=== PATIENT | male | born 1960 | race Caucasian/White ===

== ENCOUNTER 2016-05-14 18:04 | Emergency (ER) | payer OTHER ==
[~2016-05-14] VITALS: Ht 177.8 cm; Wt 120.0 kg
[~2016-05-14 18:04] MED LIST: GABA800T PO
[2016-05-14 18:05] VITALS: BP 198/126; PULSE 100; RESP 14; TEMP 98; O2SAT 98
[2016-05-15] MEDS ORDERED: BACT800T5 PO (02:25)
[2016-05-15] MEDS ORDERED: HYDR-3533 PO (02:25)
[2016-05-15] MEDS ORDERED: CEPH-460 PO (02:25)
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
[2016-05-15] MEDS ORDERED: ACETAMINOPHEN/HYDROcodone 325 MG/10 MG TAB PO ONE (02:30)
[2016-05-15 02:43] VITALS: BP 190/115; PULSE 88; RESP 14; O2SAT 99
[2016-05-15] MEDS ORDERED: LISI10TA3 PO (02:47)
[2016-05-15] MEDS ORDERED: GABA800T PO (02:51)
== END 2016-05-15 04:52 | disposition home or self-care (01) ==
LOC: NEPC 18:04
DX: S81.802A Unspecified open wound, left lower leg, initial encounter (principal); G54.6 Phantom limb syndrome with pain; I10 Essential (primary) hypertension; E78.00 Pure hypercholesterolemia, unspecified; Z72.0 Tobacco use; X58.XXXA Exposure to other specified factors, initial encounter
CPT/HCPCS: 99283

== ENCOUNTER 2016-07-08 21:21 | Emergency (ER) | payer OTHER ==
[~2016-07-08] VITALS: Ht 177.8 cm; Wt 113.5 kg
[~2016-07-08 21:21] MED LIST changes: +BACT800T5 PO; +CEPH-460 PO; +HYDR-3533 PO; +LISI10TA3 PO
[2016-07-08 21:23] VITALS: BP 190/115; PULSE 76; RESP 16; TEMP 97.8; O2SAT 97
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
== END 2016-07-08 22:27 | disposition left against medical advice (07) ==
LOC: NED 21:21
DX: M79.604 Pain in right leg (principal)
CPT/HCPCS: 99282

== ENCOUNTER 2016-08-07 21:53 | Emergency (ER) | payer OTHER ==
[~2016-08-07] VITALS: Ht 180.3 cm; Wt 88.0 kg
[2016-08-07 22:03] VITALS: BP 166/108; PULSE 88; RESP 16; TEMP 97.7; O2SAT 98
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
[2016-08-07] MEDS ORDERED: SODIUM CHLOR 0.9% 1000 ML INJ 1,000 ML IV ONE (23:30)
[2016-08-07] MEDS ORDERED: KETOROLAC TROMETHAMINE 30 MG/ML (IVP) VIAL IV PUSH ONE (23:30)
--- NOTE | 2016-08-08 00:01 | RADRPT ---
EXAM DATE/TIME: 08/07/2016 23:34 [facility] COMPARISON: No previous studies available for comparison. INDICATIONS : Left leg pain. MEDICAL HISTORY : Hypercholesterolemia. Hypertension. Arthritis. Diverticulitis. Bipolar disorder. PTSD. Measles. Ce llulitis. MRSA. Blood transfusion. SURGICAL HISTORY : Right below the knee amputation. Ulcer repair. Left leg surgery. ENCOUNTER: Subsequent ACUITY: >1 year PAIN SCORE: 5/10 LOCATION: Left leg. TECHNIQUE: Venous ultrasound of the leg was performed from the inguinal ligament to the proximal calf. Real-cesilia e, color Doppler and spectral tracing, compression and augmentation techniques were used. FINDINGS: There is normal compressibility of the deep venous system from the inguinal region to the proximal ca lf. No echogenic clot is seen in the lumen of the common femoral, femoral, popliteal, and posterior tibial veins. There is a normal response of the venous system to proximal and distal augmentation an d respiration. Edema in the soft tissues. Prominent lymph node measures 3.6 x 2.0 x 1.2 cm. CONCLUSION: 1. No deep venous thrombosis in left leg. 2. Soft tissue edema. 3. Prominent lymph node in left groin. Johnny Ni MD on August 07, 2016 at 23:58 Board Certified Radiologist. This report was verified electronically.
[2016-08-08 00:12] LABS: AUTOMATED NEUTROPHIL # 4.1 TH/MM3 (1.8-7.7); BASOPHIL % 0.6 % (0.0-2.0); EOSINOPHIL # 0.3 TH/MM3 (0-0.4); EOSINOPHIL % 3.4 % (0.0-4.0); HEMATOCRIT 42.7 % (39.0-51.0); HEMO FLAGS DIFF FINAL; LYMPH % 35.1 % (9.0-44.0); LYMPHOCYTE # 2.7 TH/MM3 (1.0-4.8); MEAN CELL VOLUME 90.9 FL (80.0-100.0); MEAN CORPUSCULAR HEMOGLOBIN 31.1 PG (27.0-34.0); MEAN CORPUSCULAR HGB CONC 34.2 % (32.0-36.0); MONO % 6.6 % (0.0-8.0); NEUT % 54.3 % (16.0-70.0); PLATELET COUNT 158 TH/MM3 (150-450); RED CELL DISTRIBUTION WIDTH 13.8 % (11.6-17.2); WHITE BLOOD COUNT 7.6 TH/MM3 (4.0-11.0)
[2016-08-08 00:13] LABS: BICARBONATE 27.3 MEQ/L (21.0-32.0); POTASSIUM 3.7 MEQ/L (3.5-5.1)
[2016-08-08 00:24] LABS: APTT (PATIENT) 27.7 SEC (24.3-30.1); INTERNATIONAL NORMALIZED RATIO 0.9 RATIO; PROTHROMBIN TIME - PATIENT 10.4 SEC (9.8-11.6)
[2016-08-08] MEDS ORDERED: BACT800T5 PO (00:26)
[2016-08-08] MEDS ORDERED: CEPH-460 PO (00:26)
[2016-08-08] MEDS ORDERED: SULFAMETHOXAZOLE-TRIMETHOPRIM DS 800-160 MG TAB PO ONE (00:30)
[2016-08-08] MEDS ORDERED: CEPHALEXIN MONOHYDRATE 500 MG CAP PO ONE (00:30)
[2016-08-08 00:46] VITALS: BP 155/94
== END 2016-08-08 00:56 | disposition home or self-care (01) ==
LOC: NEPE 21:53
DX: L03.116 Cellulitis of left lower limb (principal); I10 Essential (primary) hypertension; T14.8 Other injury of unspecified body region; X58.XXXA Exposure to other specified factors, initial encounter; Z72.0 Tobacco use; Z59.0 Homelessness
CPT/HCPCS: 80048; 85025; 85610; 85730; 93971; 96374; 99284; J1885; J7030

== ENCOUNTER 2016-08-18 23:41 | Emergency (ER) | payer OTHER ==
[2016-08-18 23:47] VITALS: BP_SYST 171; BP_SYST 177; BP_DIAS 106; BP_DIAS 114; PULSE 116; RESP 16; TEMP 98.4; O2SAT 96
[2016-08-19] MEDS ORDERED: CLINDAMYCIN INJ 600 MG in SODIUM CHLORIDE 0.9% INJ 100 ML IV ONE (03:45)
[2016-08-19 04:14] LABS: ALT (GPT) 55 U/L (12-78); ANION GAP 7 MEQ/L (5-15); AST (GOT) 43 U/L (15-37); BICARBONATE 26.3 MEQ/L (21.0-32.0); BLOOD UREA NITROGEN 12 MG/DL (7-18); CHLORIDE 106 MEQ/L (98-107); GLOMERULAR FILTRATION RATE 81 ML/MIN (>89); POTASSIUM 3.7 MEQ/L (3.5-5.1); SODIUM (NA) 139 MEQ/L (136-145)
[2016-08-19 04:15] LABS: AUTOMATED NEUTROPHIL # 7.9 TH/MM3 (1.8-7.7); BASOPHIL % 0.2 % (0.0-2.0); EOSINOPHIL # 0.1 TH/MM3 (0-0.4); EOSINOPHIL % 0.8 % (0.0-4.0); HEMATOCRIT 43.4 % (39.0-51.0); HEMO FLAGS DIFF FINAL; LYMPH % 23.4 % (9.0-44.0); LYMPHOCYTE # 2.8 TH/MM3 (1.0-4.8); MEAN CELL VOLUME 90.5 FL (80.0-100.0); MEAN CORPUSCULAR HEMOGLOBIN 30.8 PG (27.0-34.0); MEAN CORPUSCULAR HGB CONC 34.1 % (32.0-36.0); MONO % 8.5 % (0.0-8.0); NEUT % 67.1 % (16.0-70.0); PLATELET COUNT 221 TH/MM3 (150-450); RED BLOOD COUNT 4.79 MIL/MM3 (4.50-5.90); RED CELL DISTRIBUTION WIDTH 13.9 % (11.6-17.2); WHITE BLOOD COUNT 11.8 TH/MM3 (4.0-11.0)
[2016-08-19 04:17] LABS: ALKALINE PHOSPHATASE 84 U/L (45-117); TOTAL BILIRUBIN ADULT 0.9 MG/DL (0.2-1.0)
[2016-08-19 05:02] VITALS: BP 158/98; PULSE 90; RESP 18; O2SAT 94
[2016-08-19] MEDS ORDERED: CLIN1CAP5 PO (06:06)
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
== END 2016-08-19 06:23 | disposition home or self-care (01) ==
LOC: NEPC 23:41
DX: L03.116 Cellulitis of left lower limb (principal); I10 Essential (primary) hypertension; Z72.0 Tobacco use
CPT/HCPCS: 80053; 85025; 96365

== ENCOUNTER 2016-09-02 23:42 | Emergency (ER) | payer OTHER ==
[~2016-09-02 23:42] MED LIST changes: +CLIN1CAP5 PO
[2016-09-02 23:44] VITALS: BP 201/114; PULSE 94; RESP 16; TEMP 97.9; O2SAT 97
[2016-09-03] MEDS ORDERED: SULFAMETHOXAZOLE-TRIMETHOPRIM DS 800-160 MG TAB PO ONE (01:00)
[2016-09-03] MEDS ORDERED: ACETAMINOPHEN/HYDROcodone 325 MG/5 MG TAB PO ONE (01:00)
[2016-09-03] MEDS ORDERED: GABAPENTIN 400 MG CAP PO ONE (01:00)
[2016-09-03] MEDS ORDERED: GABA600T PO (01:10)
[2016-09-03] MEDS ORDERED: MUPI2%T TOPICAL (01:10)
[2016-09-03] MEDS ORDERED: HIBI4LIQ TOPICAL (01:10)
[2016-09-03] MEDS ORDERED: BACT800T5 PO (01:10)
--- NOTE | 2016-09-03 01:11 | PD ---
HPI Chief Complaint: Skin Problem Time Seen by Provider: 00:41 Travel History International Travel<30 days: No Contact w/Intl Traveler<30days: No Traveled to known affect area: No History of Present Illness HPI The patient is a 56-year-old male who presents emergency department for chronic nonhealing wounds to the hands bilateral, right forearm, and left lower extremity. The patient has a history of MRSA infection after he suffered sun poisoning. 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 The patient states he has circular lesions on the arms, hands, and left lower extremity with a small amount of crusting, no visible drainage, that are mildly irritating. The patient states he took clindamycin last week, however, the wounds did not resolve completely. He does complain of chronic left lower extremity edema, secondary to having his leg hanging over the wheelchair throughout the day. The patient states he is currently homeless, denies any history of HIV or diabetes. Symptoms are moderate and there are no alleviating factors. The patient does have a history of neuropathy for which she takes gabapentin 1200 mg 3 times a day, states his last dose was yesterday and is requesting a prescription. PFSH Past Medical History Hx Anticoagulant Therapy: No Arthritis: Yes Asthma: No Blood Disorders: No Bipolar Disorder: Yes Anxiety: Yes Depression: Yes Heart Rhythm Problems: No Cancer: No Cardiac Catheterization: No Cardiovascular Problems: Yes (HTN) High Cholesterol: Yes Chemotherapy: No Chest Pain: No Congestive Heart Failure: No COPD: No Cerebrovascular Accident: No Diabetes: No Diminished Hearing: No Diverticulitis: Yes Endocrine: No Gastrointestinal Disorders: Yes (DIVERTICULITIS ) Genitourinary: No Headaches: No Heparin Induced Thrombocytopen: No Hypertension: Yes Immune Disorder: No Implanted Vascular Access Dvce: Yes Musculoskeletal: Yes (RT BKA) Neurologic: No Psychiatric: Yes (BIPOLAR/ptsd) Reproductive: No Respiratory: No Integumentary: Yes (LEFT LEG CELLULITIS) Immunizations Current: Yes Radiation Therapy: No Seizures: No Sleep Apnea: No Tetanus Vaccination: < 5 Years Influenza Vaccination: Yes Past Surgical History Abdominal Surgery: Yes (2004 CAUTERIZED ULCER) Cardiac Surgery: No Coronary Artery Bypass Graft: No Ear Surgery: No Endocrine Surgery: No Eye Surgery: No Genitourinary Surgery: No Gynecologic Surgery: No Hysterectomy: No Joint Replacement: Yes (lt femur) Neurologic Surgery: No Oral Surgery: No Thoracic Surgery: No Other Surgery: Yes ("bleeding ulcers") Family History Family Myocardial Infarction: Yes ([place]) Social History Alcohol Use: No Tobacco Use: Yes (2 CIGS PER DAY) Substance Use: No Allergies-Medications (Allergen,Severity, Reaction): Coded Allergies: *MDRO Multi-Drug Resistant Organism (Verified Adverse Reaction, Unknown, ) MRSA (hand-12/25/15) Reported Meds & Prescriptions Reported Meds & Active Scripts Active Gabapentin 800 Mg Tab 1,200 Mg PO TID Lortab (Hydrocodone-Acetaminophen) 5-325 Mg Tab 1-2 Tab PO Q6H PRN Reported Lisinopril 10 Mg Tab 10 Mg PO DAILY Review of Systems General / Constitutional: No: Fever Cardiovascular: No: Chest Pain or Discomfort Respiratory: No: Shortness of Breath Gastrointestinal: No: Nausea, Vomiting Musculoskeletal: Positive: Edema Skin: Positive Other (as noted in history of present illness) Neurologic: Positive: Other (neuropathy and phantom pain) Physical Exam Narrative GENERAL: Awake, alert, nontoxic-appearing 56-year-old male who appears his stated age is in no acute respiratory distress. SKIN: Focused skin assessment warm/dry. Patient has circular dry crusty lesions on the arms, right forearm, hands, left lower extremity bilateral consistent with impetigo, most likely MRSA. No active drainage. HEAD: Atraumatic. Normocephalic. EYES: Pupils equal and round. No scleral icterus. No injection or drainage. ENT: No nasal bleeding or discharge. Mucous membranes pink and moist. NECK: Trachea midline. No JVD. CARDIOVASCULAR: Regular rate and rhythm. No murmur appreciated. RESPIRATORY: No accessory muscle use. Clear to auscultation. Breath sounds equal bilaterally. GASTROINTESTINAL: Abdomen soft, non-tender, nondistended. Hepatic and splenic margins not palpable. MUSCULOSKELETAL: Right BKA. The left lower extremity has mild edema with chronic venous stasis changes. Negative Homans sign. NEUROLOGICAL: Awake and alert. No obvious cranial nerve deficits. Motor grossly within normal limits. Normal speech. PSYCHIATRIC: Appropriate mood and affect; insight and judgment normal. Data Data Last Documented VS Vital Signs Date Time Temp Pulse Resp B/P Pulse Ox O2 Delivery O2 Flow Rate FiO2 09/02/16 23:49 16 09/02/16 23:44 97.9 94 201/114 97 Room Air Orders Gabapentin (Neurontin) (09/03/16 01:00) Acetamin-Hydrocod 325-5 Mg ([place] 5-325 (09/03/16 01:00) Sulfamet-Trimeth Ds 800-160 Mg (Bactrim (09/03/16 01:00) MDM Medical Decision Making Medical Screen Exam Complete: Yes Emergency Medical Condition: Yes Medical Record Reviewed: Yes Differential Diagnosis Differential diagnoses includes impetigo, MRSA, cellulitis, chronic wound infection, neuropathy, phantom pain. Narrative Course The patient was administered Bactrim, gabapentin, and [place] for pain in the emergency department. We will refill the patient's gabapentin place him on Bactroban, Bactrim, and Hibiclens. The patient is advised to follow-up with a primary physician. Clean the wounds twice a day with soap and water. Elevate the left lower extremity. Diagnosis Primary Impression: Impetigo Additional Impression: Phantom limb pain Patient Instructions: General Instructions Additional Instructions: Medications as directed. Follow-up with her primary physician. Return if symptoms worsen or progress. Elevate her left lower extremity. Med/Other Pt SpecificInfo: Prescription(s) given Scripts Chlorhexidine Gluconate Topical (Hibiclens Topical)4% Liq1 Applic TOPICAL ONCE #118 ML Ref 0 Prov:Kris Wynne MD 09/03/16 Sulfamethoxazole-Trimethoprim (Bactrim DS)800-160 Mg Tab1 Tab PO BID #14 TAB Ref 0 Prov:Kris Wynne MD 09/03/16 Mupirocin Topical (Bactroban Topical)22 Gm Cream1 Applic TOPICAL BID #1 TUBE Ref 0 Prov:Kris Wynne MD 09/03/16 Gabapentin 600 Mg Tab1,200 Mg PO TID 30 Days Ref 0 Prov:Kris Wynne MD 09/03/16 Disposition: 01 DISCHARGE HOME Condition: Stable Kris Wynne MD September 03, 2016 01:11
== END 2016-09-03 01:25 | disposition home or self-care (01) ==
LOC: NEPC 23:42
DX: L01.00 Impetigo, unspecified (principal); G54.6 Phantom limb syndrome with pain; Z89.511 Acquired absence of right leg below knee
CPT/HCPCS: 99284

== ENCOUNTER 2016-12-21 07:28 | Observation (INO) | payer OTHER ==
[~2016-12-21] VITALS: Ht 177.8 cm; Wt 110.0 kg
[~2016-12-21 07:28] MED LIST changes: -CEPH-460 PO; -CLIN1CAP5 PO; +GABA600T PO; +HIBI4LIQ TOPICAL; +MUPI2%T TOPICAL
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
[2016-12-21 08:29] LABS: AUTOMATED NEUTROPHIL # 5.3 TH/MM3 (1.8-7.7); BASOPHIL % 0.5 % (0.0-2.0); EOSINOPHIL # 0.1 TH/MM3 (0-0.4); EOSINOPHIL % 1.8 % (0.0-4.0); HEMATOCRIT 45.8 % (39.0-51.0); HEMO FLAGS DIFF FINAL; LYMPH % 23.3 % (9.0-44.0); LYMPHOCYTE # 1.8 TH/MM3 (1.0-4.8); MEAN CELL VOLUME 90.4 FL (80.0-100.0); MEAN CORPUSCULAR HEMOGLOBIN 30.8 PG (27.0-34.0); MEAN CORPUSCULAR HGB CONC 34.1 % (32.0-36.0); MONO % 6.5 % (0.0-8.0); NEUT % 67.9 % (16.0-70.0); PLATELET COUNT 192 TH/MM3 (150-450); RED BLOOD COUNT 5.07 MIL/MM3 (4.50-5.90); RED CELL DISTRIBUTION WIDTH 14.8 % (11.6-17.2); WHITE BLOOD COUNT 7.8 TH/MM3 (4.0-11.0)
[2016-12-21 08:43] LABS: BICARBONATE 22.2 MEQ/L (21.0-32.0)
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
[2016-12-21] MEDS ORDERED: LACTULOSE SYRUP 20 GM/30 ML CUP PO PRN (10:30)
[2016-12-21] MEDS ORDERED: NALOXONE HCL 0.4 MG/ML AMP IV PUSH PRN ×3 (10:30)
[2016-12-21] MEDS ORDERED: ACETAMINOPHEN 325 MG TAB PO PRN ×2 (10:30)
[2016-12-21] MEDS ORDERED: ONDANSETRON HCL 4 MG/2 ML VIAL IVP PRN (10:30)
[2016-12-21] MEDS ORDERED: Vancomycin Consult Pharmacy 1 EA OTHER SCH (10:30)
[2016-12-21] MEDS ORDERED: MAGNESIUM HYDROXIDE SUSP 30 ML CUP PO PRN (10:30)
[2016-12-21] MEDS ORDERED: MORPHINE SULFATE 4 MG/ML INJ IV PUSH PRN (10:30)
[2016-12-21] MEDS ORDERED: BISACODYL 10 MG SUPP RECTAL PRN (10:30)
[2016-12-21] MEDS ORDERED: SENNOSIDES 8.6 MG TAB PO PRN (10:30)
[2016-12-21] MEDS ORDERED: SODIUM CHLORIDE 0.9% FLUSH 10 ML FLUSH IV FLUSH PRN (10:30)
[2016-12-21] MEDS: MUPIROCIN 2% CREAM 15 GM TOPICAL SCH ×2 (10:45→20:13)
[2016-12-21] MEDS: GABAPENTIN 300 MG CAP PO SCH ×2 (11:40→17:52)
[2016-12-21] MEDS: ENOXAPARIN SODIUM 40 MG/0.4 ML SYRINGE SQ SCH (11:40)
[2016-12-21] MEDS: LISINOPRIL 10 MG TAB PO SCH (11:40)
[2016-12-21] MEDS: SODIUM CHLOR 0.9% 1000 ML INJ 1,000 ML IV SCH ×2 (11:41→23:45)
[2016-12-21] MEDS ORDERED: VANCOMYCIN INJ 1,000 MG in SODIUM CHLOR 0.9% 250 ML INJ 250 ML IV SCH (12:00)
[2016-12-21 12:07] VITALS: BP 159/91; PULSE 80; RESP 18; O2SAT 97
[2016-12-21 12:58] VITALS: BP 166/99; PULSE 95; RESP 16; O2SAT 97
[2016-12-21] MEDS ORDERED: VANCOMYCIN INJ 1,000 MG in SODIUM CHLOR 0.9% 250 ML INJ 250 ML IV ONE (13:00)
[2016-12-21] MEDS: oxyCODONE/ACETAMINOPHEN 10 MG/325 MG TAB PO PRN (13:42)
[2016-12-21 17:53] VITALS: BP 169/101; PULSE 87; RESP 20
[2016-12-21 19:44] VITALS: BP 140/85; PULSE 87; RESP 18; TEMP 98.4; O2SAT 97
[2016-12-21 20:00] VITALS: O2SAT 96
[2016-12-21] MEDS: SODIUM CHLORIDE 0.9% FLUSH 10 ML FLUSH IV FLUSH SCH (20:12)
[2016-12-21] MEDS: DOCUSATE SODIUM 50 MG/SENNA 8.6 MG TAB PO SCH (20:13)
[2016-12-21] MEDS: oxyCODONE/ACETAMINOPHEN 5 MG/325 MG TAB PO PRN (22:26)
[2016-12-22] MEDS: oxyCODONE/ACETAMINOPHEN 5 MG/325 MG TAB PO PRN ×2 (00:12→00:13)
[2016-12-22 00:26] VITALS: BP 186/111; PULSE 87; RESP 18; TEMP 98.4; O2SAT 97
[2016-12-22] MEDS: VANCOMYCIN INJ 1,250 MG in SODIUM CHLOR 0.9% 250 ML INJ 250 ML IV SCH ×2 (01:26→14:35)
[2016-12-22 05:03] VITALS: BP 150/83; PULSE 80; RESP 18; TEMP 98.3; O2SAT 97
[2016-12-22 07:49] VITALS: BP 157/110; PULSE 84; RESP 18; TEMP 96.5; O2SAT 95
[2016-12-22] MEDS: MUPIROCIN 2% CREAM 15 GM TOPICAL SCH ×2 (08:04→22:42)
[2016-12-22] MEDS: DOCUSATE SODIUM 50 MG/SENNA 8.6 MG TAB PO SCH ×2 (08:04→21:00)
[2016-12-22] MEDS: LISINOPRIL 10 MG TAB PO SCH (08:04)
[2016-12-22] MEDS: SODIUM CHLORIDE 0.9% FLUSH 10 ML FLUSH IV FLUSH SCH ×2 (08:05→21:00)
[2016-12-22] MEDS: GABAPENTIN 300 MG CAP PO SCH ×3 (08:05→18:14)
[2016-12-22] MEDS: oxyCODONE/ACETAMINOPHEN 10 MG/325 MG TAB PO PRN ×3 (08:05→22:41)
[2016-12-22 09:43] LABS: AUTOMATED NEUTROPHIL # 3.7 TH/MM3 (1.8-7.7); BASOPHIL % 0.4 % (0.0-2.0); EOSINOPHIL # 0.1 TH/MM3 (0-0.4); EOSINOPHIL % 2.4 % (0.0-4.0); HEMO FLAGS DIFF FINAL; LYMPH % 26.3 % (9.0-44.0); LYMPHOCYTE # 1.6 TH/MM3 (1.0-4.8); MEAN CELL VOLUME 88.7 FL (80.0-100.0); MEAN CORPUSCULAR HEMOGLOBIN 30.4 PG (27.0-34.0); MEAN CORPUSCULAR HGB CONC 34.3 % (32.0-36.0); MONO % 8.4 % (0.0-8.0); NEUT % 62.5 % (16.0-70.0); PLATELET COUNT 142 TH/MM3 (150-450); RED BLOOD COUNT 4.52 MIL/MM3 (4.50-5.90); RED CELL DISTRIBUTION WIDTH 14.4 % (11.6-17.2); WHITE BLOOD COUNT 5.9 TH/MM3 (4.0-11.0)
[2016-12-22] MEDS ORDERED: hydrALAZINE HCL 25 MG TAB PO PRN (10:00)
[2016-12-22] MEDS ORDERED: Vancomycin Consult Pharmacy 1 EA OTHER SCH (10:00)
[2016-12-22 10:04] LABS: ANION GAP 7 MEQ/L (5-15); AST (GOT) 54 U/L (15-37); BICARBONATE 24.4 MEQ/L (21.0-32.0); BLOOD UREA NITROGEN 8 MG/DL (7-18); CHLORIDE 104 MEQ/L (98-107); GLOMERULAR FILTRATION RATE 102 ML/MIN (>89); POTASSIUM 3.6 MEQ/L (3.5-5.1); SODIUM (NA) 135 MEQ/L (136-145)
[2016-12-22 10:07] LABS: ALKALINE PHOSPHATASE 70 U/L (45-117); ALT (GPT) 56 U/L (12-78); TOTAL BILIRUBIN ADULT 0.8 MG/DL (0.2-1.0)
[2016-12-22] MEDS: ENOXAPARIN SODIUM 40 MG/0.4 ML SYRINGE SQ SCH (12:00)
[2016-12-22 12:30] VITALS: O2SAT 97
[2016-12-22] MEDS ORDERED: PHARMACY ORDERED LAB ONE (13:30)
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
[2016-12-22] MEDS: SODIUM CHLOR 0.9% 1000 ML INJ 1,000 ML IV SCH (14:36)
[2016-12-22 16:07] VITALS: BP 150/92; PULSE 78; RESP 18; TEMP 96.9; O2SAT 96
[2016-12-22 19:47] VITALS: BP 159/96; PULSE 73; RESP 18; TEMP 97.7; O2SAT 98
[2016-12-22] MEDS: ZOLPIDEM TARTRATE 5 MG TAB PO SCH (22:40)
[2016-12-23] VITALS (7 sets, daily range): BP systolic 103–202; BP diastolic 91–126; PULSE 76–85; RESP 18–20; TEMP 96.6–98.4; O2SAT 95–98
[2016-12-23] MEDS ORDERED: PHARMACY ORDERED LAB ONE ×2 (00:45→12:45)
[2016-12-23] MEDS: VANCOMYCIN INJ 1,250 MG in SODIUM CHLOR 0.9% 250 ML INJ 250 ML IV SCH (01:00)
[2016-12-23] MEDS: SODIUM CHLOR 0.9% 1000 ML INJ 1,000 ML IV SCH (02:25)
[2016-12-23 07:27] LABS: MEAN CELL VOLUME 90.2 FL (80.0-100.0); MEAN CORPUSCULAR HEMOGLOBIN 30.1 PG (27.0-34.0); MEAN CORPUSCULAR HGB CONC 33.4 % (32.0-36.0); PLATELET COUNT 145 TH/MM3 (150-450); RED BLOOD COUNT 4.32 MIL/MM3 (4.50-5.90); RED CELL DISTRIBUTION WIDTH 14.6 % (11.6-17.2); REVIEW FLAG FINAL; WHITE BLOOD COUNT 5.3 TH/MM3 (4.0-11.0)
[2016-12-23 07:58] LABS: POTASSIUM 3.7 MEQ/L (3.5-5.1)
[2016-12-23] MEDS: LISINOPRIL 10 MG TAB PO SCH (09:20)
[2016-12-23] MEDS: GABAPENTIN 300 MG CAP PO SCH ×3 (09:21→19:07)
[2016-12-23] MEDS: oxyCODONE/ACETAMINOPHEN 10 MG/325 MG TAB PO PRN ×2 (09:21→16:42)
[2016-12-23] MEDS: SODIUM CHLORIDE 0.9% FLUSH 10 ML FLUSH IV FLUSH SCH ×2 (09:21→20:44)
[2016-12-23] MEDS: MUPIROCIN 2% CREAM 15 GM TOPICAL SCH ×2 (09:22→20:44)
[2016-12-23] MEDS: DOCUSATE SODIUM 50 MG/SENNA 8.6 MG TAB PO SCH ×2 (09:22→20:44)
[2016-12-23] MEDS ORDERED: diphenhydrAMINE HCL 25 MG CAP PO PRN (09:30)
[2016-12-23] MEDS ORDERED: LISINOPRIL 10 MG TAB PO ONE (10:00)
--- NOTE | 2016-12-23 11:21 | HHI.FPPN ---
Subjective Remarks No acute events overnight. Overnight, patient did request medication to help him sleep. Patient has been mildly hypertensive overnight. Otherwise afebrile and vital signs stable. Patient reports persistent pain and itching of his upper extremity is bilaterally. He also reports persistent phantom pain around his right BKA that he says would make him suicidal if it weren't for the gabapentin. He also reports chronic tenderness to palpation of right BKA stump. Patient feels that these skin lesions will continue to recur as long as he is using his wheelchair because his skin rubs against the wheelchair and cause of these wounds. Patient also reports that he is unable to get transportation to his local primary care doctor because medical transport will not accept him with his wheelchair without foot pedals. (Spenser Martinez MD R2) Objective Vitals Vital Signs Date Time Temp Pulse Resp B/P (MAP) Pulse Ox O2 Delivery O2 Flow Rate FiO2 12/23/16 05:41 98.4 80 19 155/100 (118) 95 12/23/16 00:11 98.0 81 18 165/108 (127) 98 12/22/16 23:43 12 12/22/16 19:47 97.7 73 18 159/96 (117) 98 12/22/16 16:07 96.9 78 18 150/92 (111) 96 12/22/16 12:30 97 I/O 12/22/16 12/22/16 12/22/16 12/23/16 12/23/16 12/23/16 07:00 15:00 23:00 07:00 15:00 23:00 Intake Total 262.5 ml 1835 ml Output Total 1450 ml Balance 262.5 ml 385 ml Intake Oral 750 ml IV Total 262.5 ml 1085 ml Output Urine Total 1450 ml (Spenser Martinez MD R2) Result Diagram: 12/23/16 0655 12/23/16 0655 Objective Remarks GENERAL: Well-nourished, well-developed patient. SKIN: Warm and dry. Multiple bilateral upper extremity well-healing scabs, no longer draining. HEAD: Normocephalic. EYES: No scleral icterus. No injection or drainage. NECK: Supple, trachea midline. No JVD or lymphadenopathy. CARDIOVASCULAR: Regular rate and rhythm without murmurs, gallops, or rubs. RESPIRATORY: Breath sounds equal bilaterally. No accessory muscle use. GASTROINTESTINAL: Abdomen soft, non-tender, nondistended. EXTREMITIES: No cyanosis, or edema. Right BKA stump is not warm, tender, or erythematous. NEUROLOGICAL: Awake, alert, and oriented x 3. Non-focal. (Spenser Martinez MD R2) A/P Assessment and Plan This is a 56-year-old male with a history of previous MRSA, cellulitis, and homelessness who presented to the ED with complaints of worsening skin lesions and subjective fever. (Spenser Martinez MD R2) Attending Attestation Patient seen and examined. Case reviewed and discussed with the resident team. Agree with plan of care as discussed with me and documented in the resident note. Mr Ramirez requests PT inpatient or outpt to learn to walk with his prosthesis (Heather Sparrow MD) Problem List: (1) Multiple wounds of skin ICD Codes: R23.8 - Other skin changes Status: Acute Plan: -Discontinued vancomycin -Keflex 500mg po q6h; plan to discharge on Keflex -Bactrim DS twice a day; plan to discharge on Bactrim -Mupirocin/Bactroban twice a day -Follow up blood cultures and wound cultures: Group A strep and MRSA growing in culture, will follow sensitivities -ESR 45, CRP 2.00 -Tylenol when necessary for fever or pain 1-2 -Percocet for pain 3-10 -Morphine for breakthrough pain -Medications when necessary for constipation -Monitor intake and output -Monitor vital signs -Oxygen as needed Patient feels that these skin lesions will continue to recur as long as he is using his wheelchair because his skin rubs against the wheelchair and cause of these wounds. -Wound care consult to see if these wounds are preventable Patient also reports that he is unable to get transportation to his local primary care doctor because medical transport will not accept him with his wheelchair without foot pedals. -Case management consult to help with transportation to primary care doctor (2) Cough ICD Codes: R05 - Cough Status: Resolved Plan: Patient presented with 4 days of cough. He refused chest x-ray initially. Exam benign. (3) Diarrhea ICD Codes: R19.7 - Diarrhea, unspecified Status: Resolved Plan: Patient with recent history of antibiotic use complained of diarrhea 2-3 times a day. -C. difficile toxin PCR not needed (4) Phantom limb pain ICD Codes: G54.7 - Phantom limb syndrome without pain Status: Chronic Plan: -Continue medication of gabapentin 1200 mg by mouth 3 times a day -Pain medications as above (5) Homeless single person ICD Codes: Z59.0 - Homeless single person Status: Chronic Plan: -Case management consult per pt he could live independently in an apartment if he can walk with his prosthesis. unclear if his insurance will pay for this can investigate both inpatient and outpt rehab options for helping him walk with his new prosthesis (6) Hypertension ICD Codes: I10 - Essential (primary) hypertension Status: Chronic Plan: -Increased patient's home medication of lisinopril from 10 mg by mouth daily to 20 mg by mouth daily (7) No contraindication to deep vein thrombosis (DVT) prophylaxis ICD Codes: Z78.9 - Other specified health status Status: Acute Plan: -Lovenox daily (8) Nutrition, metabolism, and development symptoms ICD Codes: R63.8 - Other symptoms and signs concerning food and fluid intake Status: Acute Plan: Fluids: Discontinued Half maintenance fluids with normal saline at 75 mL per hour as patient is tolerating by mouth well Electrolytes: Monitor and replete Nutrition: regular diet (Spenser Martinez MD R2) Problem Qualifiers (1) Diarrhea: Qualified Codes: R19.7 - Diarrhea, unspecified (2) Hypertension: Qualified Codes: I10 - Essential (primary) hypertension Spenser Martinez MD R2 Dec 23, 2016 11:20 Heather Sparrow MD Dec 26, 2016 14:39
[2016-12-23] MEDS: CEPHALEXIN MONOHYDRATE 500 MG CAP PO SCH ×3 (12:15→23:53)
[2016-12-23] MEDS: ENOXAPARIN SODIUM 40 MG/0.4 ML SYRINGE SQ SCH (12:16)
[2016-12-23] MEDS: SULFAMETHOXAZOLE-TRIMETHOPRIM DS 800-160 MG TAB PO SCH ×2 (12:41→20:44)
[2016-12-23] MEDS ORDERED: SULF1TAB23 PO (17:03)
[2016-12-23] MEDS ORDERED: LISI-515 PO (17:03)
[2016-12-23] MEDS ORDERED: MUPI2%T TOPICAL (17:03)
[2016-12-23] MEDS ORDERED: BENA25CA4 PO (17:03)
[2016-12-23] MEDS ORDERED: CEPH500C PO (17:03)
--- NOTE | 2016-12-23 17:04 | HHI.DCPOC ---
Discharge Care Plan Diagnosis: (1) Multiple wounds of skin Goals to Promote Your Health * To prevent worsening of your condition and complications, please take medications as prescribed. * To maintain your health at the optimal level, please follow up with your primary care provider. Directions to Meet Your Goals Take your medications as prescribed Follow your dietary instruction Follow activity as directed Keep your appointments as scheduled Take your immunizations and boosters as scheduled If your symptoms worsen call your PCP, if no PCP go to Urgent Care Center or Emergency Room Smoking is Dangerous to Your Health. Avoid second hand smoke Call the 24-hour hour crisis hotline for domestic abuse at Spenser Martinez MD R2 Dec 23, 2016 17:04
[2016-12-23] MEDS ORDERED: OXYC1TAB63 PO (17:18)
[2016-12-23] MEDS ORDERED: [UNRECOGNIZED DRUG - OTHER] (17:23)
[2016-12-23] MEDS ORDERED: ENALAPRILAT 1.25 MG/ML VIAL IV PUSH PRN (19:30)
[2016-12-23] MEDS: ZOLPIDEM TARTRATE 5 MG TAB PO SCH (21:00)
[2016-12-24 04:36] VITALS: BP 175/98; PULSE 77; RESP 19; TEMP 97.8; O2SAT 98
[2016-12-24] MEDS: CEPHALEXIN MONOHYDRATE 500 MG CAP PO SCH (06:31)
[2016-12-24] MEDS: SULFAMETHOXAZOLE-TRIMETHOPRIM DS 800-160 MG TAB PO SCH (08:27)
[2016-12-24] MEDS: GABAPENTIN 300 MG CAP PO SCH (08:27)
[2016-12-24] MEDS: LISINOPRIL 10 MG TAB PO SCH (08:27)
[2016-12-24] MEDS: oxyCODONE/ACETAMINOPHEN 5 MG/325 MG TAB PO PRN (08:28)
[2016-12-24] MEDS: DOCUSATE SODIUM 50 MG/SENNA 8.6 MG TAB PO SCH (08:30)
[2016-12-24] MEDS: SODIUM CHLORIDE 0.9% FLUSH 10 ML FLUSH IV FLUSH SCH (08:30)
[2016-12-24 08:46] VITALS: BP 160/110; PULSE 80; RESP 18; TEMP 98.2; O2SAT 95
[2016-12-24] MEDS ORDERED: LISINOPRIL 20 MG TAB PO SCH (09:00)
[2016-12-24] MEDS ORDERED: LISI40TA PO (09:26)
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
== END 2016-12-24 12:58 | disposition home or self-care (01) ==
LOC: NEPE 07:28 → NEDA 10:01 → NEPHCDU 12:45
PROVIDERS: ADMIT Family Medicine; ATTEND Family Medicine
DX: L01.00 Impetigo, unspecified (principal); R23.8 Other skin changes; B95.61 Methicillin susceptible Staphylococcus aureus infection as the cause of diseases classified elsewhere; G54.7 Phantom limb syndrome without pain; I10 Essential (primary) hypertension; R63.8 Other symptoms and signs concerning food and fluid intake; F17.210 Nicotine dependence, cigarettes, uncomplicated; Z59.0 Homelessness; Z89.511 Acquired absence of right leg below knee
CPT/HCPCS: 80048; 80053; 80202; 85025; 85027; 85652; 86140; 86403; 87040; 87070; 87147; 87186; 96361; 96365; 96366; 96372; 96375; 99285; G0378; J1650; J3370; J7030; J7050

== ENCOUNTER 2017-02-09 19:58 | Inpatient (IN) | payer OTHER ==
[~2017-02-09] VITALS: Ht 172.7 cm; Wt 90.0 kg
[~2017-02-09 19:58] MED LIST changes: -BACT800T5 PO; +BENA25CA4 PO; +CEPH500C PO; -GABA800T PO; -LISI10TA3 PO; +LISI40TA PO; +OXYC1TAB63 PO; +SULF1TAB23 PO; +[UNRECOGNIZED DRUG - OTHER]
[2017-02-09 20:01] VITALS: BP 213/98; PULSE 102; RESP 16; TEMP 100.3; O2SAT 97
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
[2017-02-09 21:08] VITALS: BP 187/126; PULSE 116; RESP 18; O2SAT 96
[2017-02-09 21:45] LABS: AUTOMATED NEUTROPHIL # 19.8 TH/MM3 (1.8-7.7); BASOPHIL # 0.1 TH/MM3 (0-0.2); BASOPHIL % 0.5 % (0.0-2.0); HEMATOCRIT 46.7 % (39.0-51.0); LYMPH % 3.9 % (9.0-44.0); LYMPHOCYTE # 0.8 TH/MM3 (1.0-4.8); MEAN CELL VOLUME 89.7 FL (80.0-100.0); MEAN CORPUSCULAR HEMOGLOBIN 30.8 PG (27.0-34.0); MEAN CORPUSCULAR HGB CONC 34.3 % (32.0-36.0); MONO % 4.4 % (0.0-8.0); NEUT % 91.2 % (16.0-70.0); PLATELET COUNT 173 TH/MM3 (150-450); RED BLOOD COUNT 5.21 MIL/MM3 (4.50-5.90); RED CELL DISTRIBUTION WIDTH 15.1 % (11.6-17.2); WHITE BLOOD COUNT 21.7 TH/MM3 (4.0-11.0)
[2017-02-09 21:55] LABS: HEMO FLAGS AUTO DIFF
--- NOTE | 2017-02-09 21:57 | RADRPT ---
EXAM DATE/TIME: 02/09/2017 21:28 [facility] COMPARISON: CHEST SINGLE AP, March 10, 2016, 9:52. INDICATIONS : Fever. MEDICAL HISTORY : Hypercholesterolemia. Chronic obstructive pulmonary disease. Hypertension. SURGICAL HISTORY : Surgery left femur. Right below knee amputation. ENCOUNTER: Initial ACUITY: 3 days PAIN SCORE: 0/10 LOCATION: Bilateral chest FINDINGS: Portable AP view of the chest demonstrates a normal-sized cardiac silhouette. No effusion, consolidat ion, or pneumothorax is visualized. The bones and soft tissues demonstrate no acute abnormality. CONCLUSION: No acute cardiopulmonary abnormality is identified. Ambrocio Cuevas MD on February 09, 2017 at 21:54 Board Certified Radiologist. This report was verified electronically.
--- NOTE | 2017-02-09 21:59 | RADRPT ---
EXAM DATE/TIME: 02/09/2017 21:30 [facility] COMPARISON: TIBIA/FIBULA LEFT (AP/LAT), November 26, 2014, 10:30. INDICATIONS : Left leg pain on and off for the past year. MEDICAL HISTORY : Hypercholesterolemia. Chronic obstructive pulmonary disease. Hypertension. SURGICAL HISTORY : Left femur surgery. Below knee amputation right leg. ENCOUNTER: Initial ACUITY: 1 year PAIN SCORE: 5/10 LOCATION: Left lower leg. FINDINGS: 4 views of the left leg demonstrate no fracture or dislocation. Mineralization is normal. There is di ffuse subcutaneous edema throughout the leg and ankle. Degenerative changes are present within the vi sualized hindfoot. No radiopaque foreign body is seen. CONCLUSION: Diffuse subcutaneous edema of the left leg similar to the prior study. No acute osseous abnormality i s identified. Ambrocio Cuevas MD on February 09, 2017 at 21:55 Board Certified Radiologist. This report was verified electronically.
[2017-02-09] MEDS ORDERED: VANCOMYCIN INJ 1,000 MG in SODIUM CHLOR 0.9% 250 ML INJ 250 ML IV ONE (22:00)
[2017-02-09] MEDS ORDERED: SODIUM CHLOR 0.9% 1000 ML INJ 1,000 ML IV ONE ×2 (22:00→22:45)
[2017-02-09] MEDS ORDERED: PIPERACIL-TAZO 3.375 GM PREMIX 50 ML IV ONE (22:00)
[2017-02-09 22:11] LABS: APTT (PATIENT) 29.4 SEC (24.3-30.1); PROTHROMBIN TIME - PATIENT 10.8 SEC (9.8-11.6)
[2017-02-09 22:13] LABS: ALT (GPT) 81 U/L (12-78); ANION GAP 11 MEQ/L (5-15); AST (GOT) 68 U/L (15-37); BICARBONATE 23.1 MEQ/L (21.0-32.0); BLOOD UREA NITROGEN 8 MG/DL (7-18); CHLORIDE 99 MEQ/L (98-107); GLOMERULAR FILTRATION RATE 85 ML/MIN (>89); MAGNESIUM 1.5 MG/DL (1.5-2.5); POTASSIUM 3.7 MEQ/L (3.5-5.1); SODIUM (NA) 133 MEQ/L (136-145)
[2017-02-09 22:14] VITALS: O2SAT 97
[2017-02-09 22:15] LABS: ALKALINE PHOSPHATASE 101 U/L (45-117); TOTAL BILIRUBIN ADULT 0.9 MG/DL (0.2-1.0)
[2017-02-09 22:17] LABS: CREATINE KINASE 32 U/L (39-308)
[2017-02-09 22:23] LABS: PLATELET ESTIMATE SMEAR NORMAL (NORMAL); PLATELET MORPHOLOGY NORMAL (NORMAL); SCAN/DIFF AUTO DIFF CONFIRMED
[2017-02-09 22:25] LABS: BACTERIA, URINE OCC /hpf; BLOOD, URINE SMALL (NEG); COMMENT (UR) CULT NOT INDICATED; CULTURE IF INDICATED CULT NOT INDICATED; GLUCOSE,URINE NEG (NEG); KETONE, URINE 10 mg/dL (NEG); MUCUS URINE FEW /lpf (OCC); NITRITE,URINE NEG (NEG); URINE COLOR YELLOW (YELLW/STRAW)
[2017-02-09] MEDS ORDERED: SODIUM CHLORIDE 0.9% FLUSH 10 ML FLUSH IV FLUSH PRN (23:15)
[2017-02-09] MEDS ORDERED: BISACODYL 10 MG SUPP RECTAL PRN (23:15)
[2017-02-09] MEDS ORDERED: ACETAMINOPHEN 325 MG TAB PO PRN (23:15)
[2017-02-09] MEDS ORDERED: ONDANSETRON HCL 4 MG/2 ML VIAL IVP PRN (23:15)
[2017-02-09] MEDS ORDERED: NALOXONE HCL 0.4 MG/ML AMP IV PUSH PRN (23:15)
[2017-02-09] MEDS ORDERED: Vancomycin Consult Pharmacy 1 EA OTHER SCH (23:53)
[2017-02-10] VITALS (7 sets, daily range): BP systolic 146–176; BP diastolic 72–96; PULSE 92–110; RESP 16–20; TEMP 96.9–99.7; O2SAT 95–100
[2017-02-10] MEDS: HEPARIN SODIUM - SQ 10,000 UNITS/ML VIAL SQ SCH ×3 (00:18→16:27)
[2017-02-10 04:04] LABS: AUTOMATED NEUTROPHIL # 17.8 TH/MM3 (1.8-7.7); BASOPHIL % 0.2 % (0.0-2.0); HEMATOCRIT 43.3 % (39.0-51.0); MEAN CELL VOLUME 89.8 FL (80.0-100.0); MEAN CORPUSCULAR HEMOGLOBIN 30.7 PG (27.0-34.0); MEAN CORPUSCULAR HGB CONC 34.2 % (32.0-36.0); NEUT % 91.8 % (16.0-70.0); PLATELET COUNT 138 TH/MM3 (150-450); RED BLOOD COUNT 4.83 MIL/MM3 (4.50-5.90); RED CELL DISTRIBUTION WIDTH 15.2 % (11.6-17.2); WHITE BLOOD COUNT 19.4 TH/MM3 (4.0-11.0)
[2017-02-10 04:06] LABS: HEMO FLAGS AUTO DIFF
[2017-02-10] MEDS: PIPERACIL-TAZO 3.375 GM PREMIX 50 ML IV SCH ×4 (04:25→21:43)
[2017-02-10 04:29] LABS: POTASSIUM 3.5 MEQ/L (3.5-5.1)
[2017-02-10 04:38] LABS: BANDS 9 % (0-6); POLYS (SEG NEUTROPHILS) 84 % (16-70); WBC DIFF SAMPLE 100
[2017-02-10 04:41] LABS: PLATELET MORPHOLOGY NORMAL (NORMAL); SCAN/DIFF FINAL DIFF MANUAL
[2017-02-10 04:44] LABS: PLATELET ESTIMATE SMEAR NORMAL (NORMAL)
[2017-02-10] MEDS: SODIUM CHLORIDE 0.9% FLUSH 10 ML FLUSH IV FLUSH SCH ×2 (09:07→21:00)
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
[2017-02-10] MEDS: NS + KCL 20 MEQ INJ 1,000 ML IV SCH (09:58)
[2017-02-10] MEDS: VANCOMYCIN 1,500 MG/NS 500 ML IV SCH ×2 (13:12)
[2017-02-10] MEDS: GABAPENTIN 300 MG CAP PO SCH (17:11)
--- NOTE | 2017-02-10 17:49 | PD.WCN.NOT ---
Wound Consult Description: Consult for Wound Management of left lower leg and left elbow per Dr Sanchez. Communicated with: ABHIJIT Heard Recommendation: Cleanse skin tears to left arm DAILY with wound cleanser and cover with single layer Xeroform and dry cover secured with rolled gauze. Cleanse lower left leg wounds with wound cleanser and gauze daily until all dried exudate has been removed. Once all exudate is removed please apply Optifoam Gentle AG every 3 days and PRN for saturation over open wound beds and secure with rolled gauze. Additional Information: Patient seen on for multiple wounds noted to anterior royal of left lower leg, left lateral malleolus, and left medial calf. Skin tears noted to left upper arm were cleansed with NS and gauze. Single layer Xeroform was applied and covered with gauze and secured with rolled gauze and can be changed daily. Left lower extremity wounds were cleansed with wound cleanser and gauze. Patient tolerated fairly. Single layer Xeroform was applied to wounds on anterior royal, medial calf, and lateral malleolus to try to loosen up dried exudate. This may be done 2 more days before completely removing all dried exudate at which time a foam dressing with silver may be applied and left in place for 3 to 5 days unless saturated or dislodged. Periwounds on lower left extremity are red, warm, and wrinkled with minimal tightness noted. Patient states that he hits them often on his wheelchair and that they usually drain. There is no active drainage noted to the superficial wound beds that are open. There is no odor noted and minimal yellow thick exudate noted underneath the friable dried exudate that was able to be removed on the lateral malleolus. Angelika Vegas [facility] Feb 10, 2017 17:49
--- NOTE | 2017-02-10 19:19 | EKG ---
Date Performed: 02/09/2017 Time Performed: 22:12:39 PTAGE: 56 years EKG: SINUS TACHYCARDIA NONSPECIFIC ST & T-WAVE ABNORMALITY WHEN COMPARED TO PRIOR EKG PATIENT NO W IS IN SINUS TACHYCARDIA. ABNORMAL RHYTHM ECG PREVIOUS TRACING : 03/10/2016 09.48 DOCTOR: Lizzeth Meneses Interpretating Date/Time 02/10/2017 19:18:13
[2017-02-11] VITALS: BP 179/92; PULSE 99; RESP 20; TEMP 100.5; O2SAT 95
[2017-02-11] MEDS: VANCOMYCIN 1,500 MG/NS 500 ML IV SCH ×4 (00:09→11:47)
[2017-02-11] MEDS: HEPARIN SODIUM - SQ 10,000 UNITS/ML VIAL SQ SCH ×4 (00:10→22:01)
[2017-02-11] MEDS: PIPERACIL-TAZO 3.375 GM PREMIX 50 ML IV SCH ×4 (04:41→20:51)
[2017-02-11] MEDS: NS + KCL 20 MEQ INJ 1,000 ML IV SCH ×2 (04:42→13:18)
[2017-02-11] MEDS: oxyCODONE/ACETAMINOPHEN 5 MG/325 MG TAB PO PRN ×5 (04:55→22:01)
[2017-02-11 08:00] VITALS: BP_SYST 170; BP_SYST 182; BP_DIAS 100; PULSE 78; RESP 16; TEMP 98.1; O2SAT 99
[2017-02-11] MEDS: GABAPENTIN 300 MG CAP PO SCH ×3 (08:44→17:16)
[2017-02-11] MEDS: LISINOPRIL 20 MG TAB PO SCH (08:46)
[2017-02-11] MEDS: SODIUM CHLORIDE 0.9% FLUSH 10 ML FLUSH IV FLUSH SCH ×2 (08:47→20:50)
[2017-02-11 09:13] LABS: AUTOMATED NEUTROPHIL # 6.8 TH/MM3 (1.8-7.7); BASOPHIL % 0.1 % (0.0-2.0); EOSINOPHIL % 0.3 % (0.0-4.0); HEMATOCRIT 45.3 % (39.0-51.0); HEMO FLAGS DIFF FINAL; LYMPH % 10.7 % (9.0-44.0); LYMPHOCYTE # 0.9 TH/MM3 (1.0-4.8); MEAN CELL VOLUME 89.9 FL (80.0-100.0); MEAN CORPUSCULAR HEMOGLOBIN 30.7 PG (27.0-34.0); MEAN CORPUSCULAR HGB CONC 34.2 % (32.0-36.0); MONO % 8.8 % (0.0-8.0); NEUT % 80.1 % (16.0-70.0); PLATELET COUNT 127 TH/MM3 (150-450); RED BLOOD COUNT 5.04 MIL/MM3 (4.50-5.90); WHITE BLOOD COUNT 8.5 TH/MM3 (4.0-11.0)
[2017-02-11] MEDS ORDERED: INFLUENZA VIRUS VACCINE (QUADRIVALENT) 0.5 ML SYR IM ONE (10:00)
[2017-02-11] MEDS ORDERED: PHARMACY ORDERED LAB ONE (10:45)
[2017-02-11 12:00] VITALS: BP_SYST 172; BP_SYST 175; BP_DIAS 100; BP_DIAS 101; PULSE 85; RESP 19; TEMP 98; O2SAT 98
[2017-02-11 12:42] LABS: ALKALINE PHOSPHATASE 79 U/L (45-117); ALT (GPT) 53 U/L (12-78); ANION GAP 10 MEQ/L (5-15); AST (GOT) 46 U/L (15-37); BLOOD UREA NITROGEN 7 MG/DL (7-18); CHLORIDE 102 MEQ/L (98-107); GLOMERULAR FILTRATION RATE 93 ML/MIN (>89); MAGNESIUM 1.9 MG/DL (1.5-2.5); POTASSIUM 3.8 MEQ/L (3.5-5.1); SODIUM (NA) 134 MEQ/L (136-145); TOTAL BILIRUBIN ADULT 0.6 MG/DL (0.2-1.0)
[2017-02-11 14:25] VITALS: BP 146/88
--- NOTE | 2017-02-11 15:43 | HHI.PR ---
Subjective Remarks Follow up cellulitis, leg wounds. Still having pain in both legs. Has phantom pain in right lower leg. Wounds/cellulitis seem to be improving. No dyspnea, chest pain. Objective Vitals Vital Signs Date Time Temp Pulse Resp B/P (MAP) Pulse Ox O2 Delivery O2 Flow Rate FiO2 02/11/17 12:00 98.0 85 19 175/101 (125) 98 172/100 (124) 02/11/17 08:00 98.1 78 16 182/100 (127) 99 170/100 (123) 02/11/17 06:21 20 02/11/17 00:00 100.5 99 20 179/92 (121) 95 02/10/17 20:00 99.7 100 20 155/94 (114) 96 02/10/17 16:00 96.9 92 18 146/78 (100) 98 I/O 02/10/17 02/10/17 02/10/17 02/11/17 02/11/17 02/11/17 07:00 15:00 23:00 07:00 15:00 23:00 Intake Total 2300 ml 360 ml 1635 ml 50 ml Output Total 800 ml 125 ml 950 ml Balance 2300 ml -440 ml 1510 ml -950 ml 50 ml Intake Oral 360 ml 120 ml IV Total 2300 ml 1515 ml 50 ml Output Urine Total 800 ml 125 ml 950 ml # Voids 1 # Bowel Movements 0 Result Diagram: 02/11/17 0830 02/11/17 0830 Imaging Last Impressions Chest X-Ray 02/09/175 Signed Impressions: Service Date/Time: Thursday, February 09, 2017 21:28 - CONCLUSION: No acute cardiopulmonary abnormality is identified. Ambrocio Cuevas MD Tibia/Fibula X-Ray 02/09/17 0000 Signed Impressions: Service Date/Time: Thursday, February 09, 2017 21:30 - CONCLUSION: Diffuse subcutaneous edema of the left leg similar to the prior study. No acute osseous abnormality is identified. Ambrocio Cuevas MD Objective Remarks General: No acute distress. Heart: Regular rate and rhythm. No murmur. Lungs: Clear to auscultation bilaterally. No wheezes, rales, or rhonchi. Breathing is nonlabored. Abdomen: Soft, nontender, nondistended. Extremities: Trace to 1+ left lower extremity edema. There are multiple wounds on the left lower leg with scabs. No active bleeding or drainage. Bandages in place. Right below-knee amputation. Psych: Alert and oriented. Procedures None Urinary Catheter: No Vascular Central Line Catheter: No A/P Problem List: (1) History of right below knee amputation ICD Code: Z89.511 - Acquired absence of right leg below knee (2) Cellulitis of left lower extremity ICD Code: L03.116 - Cellulitis of left lower limb Status: Resolved (3) Wound of left lower extremity ICD Code: S81.802A - Unspecified open wound, left lower leg, initial encounter Status: Acute (4) Hypertension ICD Code: I10 - Essential (primary) hypertension Status: Chronic Assessment and Plan 1. Left lower extremity cellulitis, wounds: Continue antibiotics (vancomycin, Zosyn). Patient reports history of MRSA. Continue wound care. 2. Hypertension: Blood pressure is elevated. Continue lisinopril. Vasotec as needed. 3. Neuropathy, phantom limb pain: Continue gabapentin. 4. Sepsis: Secondary to cellulitis. Continue antibiotics. WBCs are WNL. Monitor labs. IV fluids. 5. Tobacco abuse: Patient has been counseled. 6. DVT prophylaxis: Heparin. Mario Sanchez MD Feb 11, 2017 15:43
[2017-02-11 16:00] VITALS: BP 165/96; PULSE 81; RESP 19; TEMP 98.9; O2SAT 98
[2017-02-11] MEDS: ENALAPRILAT 1.25 MG/ML VIAL IV PUSH PRN (18:41)
[2017-02-11 20:00] VITALS: BP 161/104; PULSE 80; RESP 20; TEMP 98.1; O2SAT 98
[2017-02-11] MEDS: VANCOMYCIN INJ 1,750 MG in SODIUM CHLORID 0.9% 500 ML INJ 500 ML IV SCH (22:00)
[2017-02-12] MEDS: oxyCODONE/ACETAMINOPHEN 5 MG/325 MG TAB PO PRN ×4 (05:30→20:59)
[2017-02-12] MEDS: PIPERACIL-TAZO 3.375 GM PREMIX 50 ML IV SCH ×4 (05:30→20:57)
[2017-02-12 08:00] VITALS: BP 170/106; PULSE 81; RESP 18; TEMP 96.6; O2SAT 98
[2017-02-12 08:26] LABS: AUTOMATED NEUTROPHIL # 5.2 TH/MM3 (1.8-7.7); BASOPHIL % 0.3 % (0.0-2.0); EOSINOPHIL # 0.1 TH/MM3 (0-0.4); EOSINOPHIL % 1.4 % (0.0-4.0); HEMATOCRIT 42.4 % (39.0-51.0); HEMO FLAGS DIFF FINAL; LYMPH % 13.2 % (9.0-44.0); LYMPHOCYTE # 0.9 TH/MM3 (1.0-4.8); MEAN CELL VOLUME 89.1 FL (80.0-100.0); MEAN CORPUSCULAR HEMOGLOBIN 30.9 PG (27.0-34.0); MEAN CORPUSCULAR HGB CONC 34.7 % (32.0-36.0); MONO % 8.7 % (0.0-8.0); NEUT % 76.4 % (16.0-70.0); PLATELET COUNT 134 TH/MM3 (150-450); RED BLOOD COUNT 4.76 MIL/MM3 (4.50-5.90); RED CELL DISTRIBUTION WIDTH 15.1 % (11.6-17.2); WHITE BLOOD COUNT 6.8 TH/MM3 (4.0-11.0)
[2017-02-12 08:50] LABS: BICARBONATE 22.8 MEQ/L (21.0-32.0); POTASSIUM 3.4 MEQ/L (3.5-5.1)
[2017-02-12] MEDS: LISINOPRIL 20 MG TAB PO SCH (09:23)
[2017-02-12] MEDS: GABAPENTIN 300 MG CAP PO SCH ×3 (09:23→20:59)
[2017-02-12] MEDS: HEPARIN SODIUM - SQ 10,000 UNITS/ML VIAL SQ SCH ×2 (09:23→16:39)
[2017-02-12] MEDS: SODIUM CHLORIDE 0.9% FLUSH 10 ML FLUSH IV FLUSH SCH ×2 (09:24→20:56)
[2017-02-12 12:00] VITALS: BP 192/110; PULSE 99; RESP 20; TEMP 97.4; O2SAT 95
[2017-02-12] MEDS: VANCOMYCIN INJ 1,750 MG in SODIUM CHLORID 0.9% 500 ML INJ 500 ML IV SCH ×2 (12:28→20:56)
[2017-02-12] MEDS: ENALAPRILAT 1.25 MG/ML VIAL IV PUSH PRN ×2 (12:28→20:58)
[2017-02-12] MEDS ORDERED: POTASSIUM CHLORIDE 20 MEQ CONTROLLED RELEASE TAB PO ONE (15:30)
[2017-02-12 16:00] VITALS: BP 185/112; PULSE 81; RESP 18; TEMP 97.9; O2SAT 96
[2017-02-12] MEDS ORDERED: VANCOMYCIN INJ 1,750 MG in SODIUM CHLORID 0.9% 500 ML INJ 500 ML IV SCH (18:15)
--- NOTE | 2017-02-12 19:36 | HHI.PR ---
Subjective Remarks Late entry. Patient seen at ~1600 today. Follow up cellulitis, hypertension. Patient reporting pain in left lower leg and phantom pain in right lower leg. No chest pain or dyspnea. Objective Vitals Vital Signs Date Time Temp Pulse Resp B/P (MAP) Pulse Ox O2 Delivery O2 Flow Rate FiO2 02/12/17 16:00 97.9 81 18 185/112 (136) 96 02/12/17 12:00 97.4 99 20 192/110 (137) 95 02/12/17 08:00 96.6 81 18 170/106 (127) 98 02/12/17 00:00 02/11/17 20:00 98.1 80 20 161/104 (123) 98 I/O 02/11/17 02/11/17 02/11/17 02/12/17 02/12/17 02/12/17 07:00 15:00 23:00 07:00 15:00 23:00 Intake Total 50 ml 638 ml 617.5 ml 350 ml 840 ml Output Total 950 ml 750 ml 600 ml Balance -950 ml 50 ml -112 ml 17.5 ml 350 ml 840 ml Intake Oral 480 ml 840 ml IV Total 50 ml 158 ml 617.5 ml 350 ml Output Urine Total 950 ml 750 ml 600 ml # Voids 3 # Bowel Movements 0 1 Result Diagram: 02/12/1770802/12/17708 Imaging Last Impressions Chest X-Ray 02/09/172114 Signed Impressions: Service Date/Time: Thursday, February 09, 2017 21:28 - CONCLUSION: No acute cardiopulmonary abnormality is identified. Ambrocio Cuevas MD Tibia/Fibula X-Ray 02/09/17 0000 Signed Impressions: Service Date/Time: Thursday, February 09, 2017 21:30 - CONCLUSION: Diffuse subcutaneous edema of the left leg similar to the prior study. No acute osseous abnormality is identified. Ambrocio Cuevas MD Objective Remarks General: No acute distress. Heart: Regular rate and rhythm. No murmur. Lungs: Clear to auscultation bilaterally. No wheezes, rales, or rhonchi. Breathing is nonlabored. Abdomen: Soft, nontender, nondistended. Extremities: Trace to 1+ left lower extremity edema. There are multiple wounds on the left lower leg with scabs. No active bleeding or drainage. Bandages in place. Right below-knee amputation. Psych: Alert and oriented. Procedures None Urinary Catheter: No Vascular Central Line Catheter: No A/P Problem List: (1) History of right below knee amputation ICD Code: Z89.511 - Acquired absence of right leg below knee (2) Cellulitis of left lower extremity ICD Code: L03.116 - Cellulitis of left lower limb Status: Resolved (3) Wound of left lower extremity ICD Code: S81.802A - Unspecified open wound, left lower leg, initial encounter Status: Acute (4) Hypertension ICD Code: I10 - Essential (primary) hypertension Status: Chronic Assessment and Plan 1. Left lower extremity cellulitis, wounds: Continue antibiotics (vancomycin, Zosyn). Patient reports history of MRSA. Continue wound care. 2. Hypertension: Blood pressure has remained elevated. Continue lisinopril. Add amlodipine. Vasotec as needed. 3. Neuropathy, phantom limb pain: Continue gabapentin. 4. Sepsis: Secondary to cellulitis. Continue antibiotics. WBCs are WNL. Monitor labs. IV fluids. 5. Tobacco abuse: Patient has been counseled. 6. DVT prophylaxis: Heparin. Discharge Planning Possible discharge home tomorrow pending improvement in blood pressure control. Mario Sanchez MD Feb 12, 2017 19:36
[2017-02-12 20:00] VITALS: BP 165/106; PULSE 85; RESP 18; TEMP 98.4; O2SAT 98
[2017-02-13] VITALS (8 sets, daily range): BP systolic 132–180; BP diastolic 93–110; PULSE 75–89; RESP 17–18; TEMP 96.2–97.7; O2SAT 95–98
[2017-02-13] MEDS: GABAPENTIN 300 MG CAP PO SCH ×3 (05:17→22:04)
[2017-02-13] MEDS: ENALAPRILAT 1.25 MG/ML VIAL IV PUSH PRN ×2 (05:18→14:00)
[2017-02-13] MEDS: PIPERACIL-TAZO 3.375 GM PREMIX 50 ML IV SCH ×4 (05:18→22:02)
[2017-02-13] MEDS: oxyCODONE/ACETAMINOPHEN 5 MG/325 MG TAB PO PRN ×2 (05:22→09:45)
[2017-02-13] MEDS ORDERED: PHARMACY ORDERED LAB ONE (07:45)
[2017-02-13] MEDS: HEPARIN SODIUM - SQ 10,000 UNITS/ML VIAL SQ SCH ×4 (08:00→23:50)
[2017-02-13] MEDS: LISINOPRIL 20 MG TAB PO SCH (08:04)
[2017-02-13] MEDS: SODIUM CHLORIDE 0.9% FLUSH 10 ML FLUSH IV FLUSH SCH ×2 (08:05→22:03)
[2017-02-13] MEDS: VANCOMYCIN INJ 1,750 MG in SODIUM CHLORID 0.9% 500 ML INJ 500 ML IV SCH ×2 (09:39→22:01)
[2017-02-13 10:11] LABS: BICARBONATE 21.9 MEQ/L (21.0-32.0)
[2017-02-13 10:17] LABS: POTASSIUM 3.6 MEQ/L (3.5-5.1)
[2017-02-13] MEDS ORDERED: WHEEMIS3 (11:05)
[2017-02-13] MEDS: MORPHINE SULFATE 2 MG/ML INJ IV PUSH PRN (12:25)
[2017-02-13] MEDS: oxyCODONE/ACETAMINOPHEN 10 MG/325 MG TAB PO PRN ×3 (14:00→22:09)
--- NOTE | 2017-02-13 15:16 | HHI.PR ---
Subjective Remarks Follow-up left lower extremity cellulitis, hypertension. Patient reports ongoing significant pain in his left lower leg as well as phantom pain in the right lower leg. Pain medication does not seem to be helping. No chest pain or dyspnea. No nausea or vomiting. Objective Vitals Vital Signs Date Time Temp Pulse Resp B/P (MAP) Pulse Ox O2 Delivery O2 Flow Rate FiO2 02/13/17 13:54 160/110 (127) 02/13/17 11:55 97.6 87 17 156/102 (120) 98 02/13/17 10:54 156/102 (120) 02/13/17 08:00 96.6 85 18 180/108 (132) 98 02/13/17 00:40 97.7 75 18 152/104 (120) 97 02/12/17 20:00 98.4 85 18 165/106 (125) 98 02/12/17 16:00 97.9 81 18 185/112 (136) 96 I/O 02/12/17 02/12/17 02/12/17 02/13/17 02/13/17 02/13/17 07:00 15:00 23:00 07:00 15:00 23:00 Intake Total 617.5 ml 350 ml 890 ml 517.5 ml Output Total 600 ml 400 ml 1600 ml Balance 17.5 ml 350 ml 490 ml -1082.5 ml Intake Oral 840 ml IV Total 617.5 ml 350 ml 50 ml 517.5 ml Output Urine Total 600 ml 400 ml 1600 ml # Voids 3 # Bowel Movements 1 Result Diagram: 02/12/17 0709 02/13/17 0825 Imaging Last Impressions Chest X-Ray 02/09/175 Signed Impressions: Service Date/Time: Thursday, February 09, 2017 21:28 - CONCLUSION: No acute cardiopulmonary abnormality is identified. Ambrocio Cuevas MD Tibia/Fibula X-Ray 02/09/17 0000 Signed Impressions: Service Date/Time: Thursday, February 09, 2017 21:30 - CONCLUSION: Diffuse subcutaneous edema of the left leg similar to the prior study. No acute osseous abnormality is identified. Ambrocio Cuevas MD Objective Remarks General: No acute distress. Heart: Regular rate and rhythm. No murmur. Lungs: Clear to auscultation bilaterally. No wheezes, rales, or rhonchi. Breathing is nonlabored. Abdomen: Soft, nontender, nondistended. Extremities: Trace to 1+ left lower extremity edema. There are multiple wounds on the left lower leg with scabs. No active bleeding or drainage. Bandages in place. Right below-knee amputation. Psych: Alert and oriented. Procedures None Urinary Catheter: No Vascular Central Line Catheter: No A/P Problem List: (1) History of right below knee amputation ICD Code: Z89.511 - Acquired absence of right leg below knee (2) Cellulitis of left lower extremity ICD Code: L03.116 - Cellulitis of left lower limb Status: Resolved (3) Wound of left lower extremity ICD Code: S81.802A - Unspecified open wound, left lower leg, initial encounter Status: Acute (4) Hypertension ICD Code: I10 - Essential (primary) hypertension Status: Chronic Assessment and Plan 1. Left lower extremity cellulitis, wounds: Continue antibiotics (vancomycin, Zosyn). Patient reports history of MRSA. Continue wound care. 2. Hypertension: Blood pressure has remained elevated, possibly secondary to pain. Continue lisinopril, amlodipine. Add HCTZ. Vasotec as needed. 3. Neuropathy, phantom limb pain: Continue gabapentin. 4. Sepsis: Secondary to cellulitis. Continue antibiotics. Leukocytosis resolved. Monitor labs. IV fluids. 5. Tobacco abuse: Patient has been counseled. 6. DVT prophylaxis: Heparin. Discharge Planning Possible discharge home tomorrow pending improvement in blood pressure control. Mario Sanchez MD Feb 13, 2017 15:16
[2017-02-13] MEDS: HYDROCHLOROTHIAZIDE 25 MG TAB PO SCH (15:24)
[2017-02-14] VITALS: BP 132/81; PULSE 74; RESP 18; TEMP 96.6; O2SAT 96
[2017-02-14] MEDS: MORPHINE SULFATE 2 MG/ML INJ IV PUSH PRN ×4 (00:28→22:41)
[2017-02-14] MEDS: oxyCODONE/ACETAMINOPHEN 10 MG/325 MG TAB PO PRN ×4 (02:08→23:56)
[2017-02-14] MEDS: PIPERACIL-TAZO 3.375 GM PREMIX 50 ML IV SCH ×4 (04:46→20:15)
[2017-02-14] MEDS: GABAPENTIN 300 MG CAP PO SCH ×3 (04:47→20:14)
[2017-02-14 04:53] VITALS: BP 166/116; PULSE 76; RESP 18; TEMP 96.1; O2SAT 99
[2017-02-14] MEDS ORDERED: PHARMACY ORDERED LAB ONE (07:45)
[2017-02-14 08:00] VITALS: BP_SYST 170; BP_SYST 172; BP_DIAS 110; BP_DIAS 112; PULSE 86; RESP 18; TEMP 96.9; O2SAT 97
[2017-02-14] MEDS: HEPARIN SODIUM - SQ 10,000 UNITS/ML VIAL SQ SCH ×3 (09:49→20:22)
[2017-02-14] MEDS: HYDROCHLOROTHIAZIDE 25 MG TAB PO SCH (09:49)
[2017-02-14] MEDS: LISINOPRIL 20 MG TAB PO SCH (09:50)
[2017-02-14] MEDS: SODIUM CHLORIDE 0.9% FLUSH 10 ML FLUSH IV FLUSH SCH ×2 (09:53→20:17)
[2017-02-14] MEDS: VANCOMYCIN INJ 1,750 MG in SODIUM CHLORID 0.9% 500 ML INJ 500 ML IV SCH ×2 (09:53→20:15)
[2017-02-14 12:00] VITALS: BP 153/99; PULSE 83; RESP 19; TEMP 97.8; O2SAT 94
--- NOTE | 2017-02-14 15:16 | HHI.PR ---
Subjective Remarks Follow-up cellulitis, hypertension. The patient is still having pain in both of his legs. The new pain medication regimen is helping somewhat. Objective Vitals Vital Signs Date Time Temp Pulse Resp B/P (MAP) Pulse Ox O2 Delivery O2 Flow Rate FiO2 02/14/17 12:00 97.8 83 19 153/99 (117) 94 02/14/17 08:00 96.9 86 18 172/112 (132) 97 170/110 (130) 02/14/17 04:53 96.1 76 18 166/116 (133) 99 02/14/17 00:00 96.6 74 18 132/81 (98) 96 02/13/17 20:00 97.3 77 18 132/93 (106) 95 02/13/17 16:14 96.2 89 18 153/98 (116) 98 02/13/17 15:13 156/98 (117) I/O 02/13/17 02/13/17 02/13/17 02/14/17 02/14/17 02/14/17 07:00 15:00 23:00 07:00 15:00 23:00 Intake Total 517.5 ml 1080 ml 567.5 ml 50 ml Output Total 1600 ml 1125 ml 800 ml Balance -1082.5 ml -45 ml -232.5 ml 50 ml Intake Oral 1080 ml IV Total 517.5 ml 567.5 ml 50 ml Output Urine Total 1600 ml 1125 ml 800 ml Result Diagram: 02/12/17 0709 02/13/17 0825 Imaging Last Impressions Chest X-Ray 02/09/175 Signed Impressions: Service Date/Time: Thursday, February 09, 2017 21:28 - CONCLUSION: No acute cardiopulmonary abnormality is identified. Ambrocio Cuevas MD Tibia/Fibula X-Ray 02/09/17 0000 Signed Impressions: Service Date/Time: Thursday, February 09, 2017 21:30 - CONCLUSION: Diffuse subcutaneous edema of the left leg similar to the prior study. No acute osseous abnormality is identified. Ambrocio Cuevas MD Objective Remarks General: No acute distress. Heart: Regular rate and rhythm. No murmur. Lungs: Clear to auscultation bilaterally. No wheezes, rales, or rhonchi. Breathing is nonlabored. Abdomen: Soft, nontender, nondistended. Extremities: Trace to 1+ left lower extremity edema. There are multiple wounds on the left lower leg with scabs. Granulation tissue surrounding the anterior royal wounds. Right below-knee amputation. Psych: Alert and oriented. Procedures None Urinary Catheter: No Vascular Central Line Catheter: No A/P Problem List: (1) History of right below knee amputation ICD Code: Z89.511 - Acquired absence of right leg below knee (2) Cellulitis of left lower extremity ICD Code: L03.116 - Cellulitis of left lower limb Status: Resolved (3) Wound of left lower extremity ICD Code: S81.802A - Unspecified open wound, left lower leg, initial encounter Status: Acute (4) Hypertension ICD Code: I10 - Essential (primary) hypertension Status: Chronic Assessment and Plan 1. Left lower extremity cellulitis, wounds: Improving. Continue antibiotics ( vancomycin, Zosyn). Patient reports history of MRSA. Continue wound care. 2. Hypertension: Blood pressure has remained elevated, possibly secondary to pain. Continue lisinopril, amlodipine, HCTZ. Vasotec as needed. 3. Neuropathy, phantom limb pain: Continue gabapentin. 4. Sepsis: Secondary to cellulitis. Continue antibiotics. Leukocytosis resolved. 5. Tobacco abuse: Patient has been counseled. 6. DVT prophylaxis: Heparin. Discharge Planning Pending improvement in blood pressure. Case management also trying to arrange a new wheelchair for the patient, which cannot be done until Thursday. Mario Sanchez MD Feb 14, 2017 15:16
[2017-02-14 16:00] VITALS: BP 129/97; PULSE 100; RESP 19; TEMP 96.4; O2SAT 96
[2017-02-14 20:00] VITALS: BP 105/87; PULSE 104; RESP 20; TEMP 96.4; O2SAT 98
[2017-02-15] VITALS: BP 108/66; PULSE 86; RESP 18; TEMP 95.2; O2SAT 96
[2017-02-15] MEDS: PIPERACIL-TAZO 3.375 GM PREMIX 50 ML IV SCH ×3 (03:39→09:42)
[2017-02-15] MEDS: GABAPENTIN 300 MG CAP PO SCH (05:43)
[2017-02-15 08:00] VITALS: BP 138/100; PULSE 94; RESP 19; TEMP 98.5; O2SAT 98
[2017-02-15] MEDS: VANCOMYCIN INJ 1,750 MG in SODIUM CHLORID 0.9% 500 ML INJ 500 ML IV SCH (08:00)
[2017-02-15] MEDS: HEPARIN SODIUM - SQ 10,000 UNITS/ML VIAL SQ SCH (08:00)
[2017-02-15] MEDS: HYDROCHLOROTHIAZIDE 25 MG TAB PO SCH (08:22)
[2017-02-15] MEDS: oxyCODONE/ACETAMINOPHEN 10 MG/325 MG TAB PO PRN (08:22)
[2017-02-15] MEDS: LISINOPRIL 20 MG TAB PO SCH (08:22)
[2017-02-15] MEDS: SODIUM CHLORIDE 0.9% FLUSH 10 ML FLUSH IV FLUSH SCH (08:22)
[2017-02-15] MEDS: MORPHINE SULFATE 2 MG/ML INJ IV PUSH PRN (09:33)
[2017-02-15] MEDS ORDERED: AMLO10 PO (10:47)
[2017-02-15] MEDS ORDERED: GABA600T PO (10:47)
[2017-02-15] MEDS ORDERED: LISI40TA PO (10:47)
[2017-02-15] MEDS ORDERED: OXYC1TAB63 PO (10:47)
[2017-02-15] MEDS ORDERED: HYDR25TA5 PO (10:47)
[2017-02-15] MEDS ORDERED: BACT800T5 PO (10:47)
--- NOTE | 2017-02-15 10:48 | HHI.DCPOC ---
Discharge Care Plan Diagnosis: (1) History of right below knee amputation (2) Wound of left lower extremity (3) Hypertension (4) Cellulitis of left lower extremity Goals to Promote Your Health * To prevent worsening of your condition and complications * To maintain your health at the optimal level Directions to Meet Your Goals Take your medications as prescribed Follow your dietary instruction Follow activity as directed Keep your appointments as scheduled Take your immunizations and boosters as scheduled If your symptoms worsen call your PCP, if no PCP go to Urgent Care Center or Emergency Room Smoking is Dangerous to Your Health. Avoid second hand smoke Call the 24-hour hour crisis hotline for domestic abuse at Mario Sanchez MD Feb 15, 2017 10:48
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
== END 2017-02-15 12:11 | disposition home or self-care (01) | DRG 872 ==
LOC: NEPC 19:58 → NEDA 22:48 → NEDH 02-10 03:36 → NEDA 02-10 12:15 → N07A 02-10 12:41
PROVIDERS: ADMIT Family Medicine; ATTEND Family Medicine
DX: A41.9 Sepsis, unspecified organism (principal); G54.6 Phantom limb syndrome with pain; I10 Essential (primary) hypertension; L03.116 Cellulitis of left lower limb; S50.312A Abrasion of left elbow, initial encounter; J44.9 Chronic obstructive pulmonary disease, unspecified; E78.5 Hyperlipidemia, unspecified; M19.90 Unspecified osteoarthritis, unspecified site; F12.90 Cannabis use, unspecified, uncomplicated; F17.290 Nicotine dependence, other tobacco product, uncomplicated; F31.9 Bipolar disorder, unspecified; F41.9 Anxiety disorder, unspecified; Z23 Encounter for immunization; F43.10 Post-traumatic stress disorder, unspecified; Z59.0 Homelessness; Z86.14 Personal history of Methicillin resistant Staphylococcus aureus infection; Z89.511 Acquired absence of right leg below knee
CPT/HCPCS: 71010; 73590; 76937; 80048; 80053; 80202; 81001; 82550; 83605; 83735; 84484; 85007; 85025; 85027; 85610; 85730; 86140; 87040; 87641; 90471; 90686; 93005; 96365; 96375; G0008; G8987-GP; G8988-GP; J1644; J2270; J2543; J3370; J3480; J7030; J7040; J7050; Q2038

== ENCOUNTER 2017-02-22 10:54 | Emergency (ER) | payer OTHER ==
[~2017-02-22] VITALS: Ht 172.7 cm; Wt 90.0 kg
[~2017-02-22 10:54] MED LIST changes: +AMLO10 PO; +BACT800T5 PO; -BENA25CA4 PO; -CEPH500C PO; -HIBI4LIQ TOPICAL; -HYDR-3533 PO; +HYDR25TA5 PO; -MUPI2%T TOPICAL; -SULF1TAB23 PO; +WHEEMIS3
[2017-02-22] MEDS ORDERED: SODIUM CHLOR 0.9% 1000 ML INJ 1,000 ML IV SCH (11:10)
[2017-02-22 11:11] VITALS: BP 216/108; PULSE 84; RESP 22; TEMP 98; O2SAT 99
[2017-02-22] MEDS ORDERED: LIDOCAINE VISCOUS 2% SOLN 15 ML UDC PO ONE (11:15)
[2017-02-22] MEDS ORDERED: ONDANSETRON HCL 4 MG/2 ML VIAL IVP ONE (11:15)
[2017-02-22] MEDS ORDERED: ALUMINUM/MAGNESIUM/SIMETH 30 ML CUP PO ONE (11:15)
[2017-02-22] MEDS ORDERED: MORPHINE SULFATE 4 MG/ML INJ IV PUSH ONE (11:15)
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
[2017-02-22 11:38] LABS: AUTOMATED NEUTROPHIL # 6.4 TH/MM3 (1.8-7.7); BASOPHIL # 0.1 TH/MM3 (0-0.2); BASOPHIL % 0.7 % (0.0-2.0); EOSINOPHIL # 0.1 TH/MM3 (0-0.4); EOSINOPHIL % 0.9 % (0.0-4.0); HEMATOCRIT 45.8 % (39.0-51.0); HEMO FLAGS DIFF FINAL; LYMPH % 23.9 % (9.0-44.0); LYMPHOCYTE # 2.2 TH/MM3 (1.0-4.8); MEAN CELL VOLUME 89.1 FL (80.0-100.0); MEAN CORPUSCULAR HEMOGLOBIN 30.7 PG (27.0-34.0); MEAN CORPUSCULAR HGB CONC 34.4 % (32.0-36.0); MONO % 6.8 % (0.0-8.0); NEUT % 67.7 % (16.0-70.0); PLATELET COUNT 286 TH/MM3 (150-450); RED BLOOD COUNT 5.14 MIL/MM3 (4.50-5.90); WHITE BLOOD COUNT 9.4 TH/MM3 (4.0-11.0)
[2017-02-22 11:41] VITALS: BP 183/97; PULSE 72; RESP 16; O2SAT 98
[2017-02-22 11:50] LABS: BLOOD, URINE NEG (NEG); GLUCOSE,URINE NEG (NEG); KETONE, URINE NEG (NEG); NITRITE,URINE NEG (NEG); URINE COLOR YELLOW (YELLW/STRAW)
[2017-02-22 12:01] LABS: COMMENT (UR) CULT NOT INDICATED; CULTURE IF INDICATED CULT NOT INDICATED; RBC, URINE 0-3 /hpf (0-3); SQUAMOUS EPITHELIAL CELL URINE 0-5 /hpf (0-5); WBC, URINE 0-2 /hpf (0-5)
[2017-02-22 12:02] LABS: ANION GAP 7 MEQ/L (5-15); AST (GOT) 43 U/L (15-37); BICARBONATE 23.6 MEQ/L (21.0-32.0); BLOOD UREA NITROGEN 16 MG/DL (7-18); CHLORIDE 102 MEQ/L (98-107); GLOMERULAR FILTRATION RATE 72 ML/MIN (>89); POTASSIUM 3.9 MEQ/L (3.5-5.1); SODIUM (NA) 133 MEQ/L (136-145)
[2017-02-22 12:05] LABS: ALKALINE PHOSPHATASE 88 U/L (45-117); ALT (GPT) 51 U/L (12-78); TOTAL BILIRUBIN ADULT 0.7 MG/DL (0.2-1.0)
[2017-02-22] MEDS ORDERED: IOHEXOL 350 MG/ML 10 ML VIAL (for RAD DIAG) IVCONTRAST ONE (13:02)
--- NOTE | 2017-02-22 13:11 | RADRPT ---
EXAM DATE/TIME: 02/22/2017 12:31 [facility] COMPARISON: CT ABDOMEN & PELVIS W/O CONTRAST, December 18, 2015, 9:59. CT ABDOMEN & PELVIS W/O CONTRAST, 2015, 22:14. CT ABDOMEN & PELVIS W CONTRAST, October 13, 2014, 10:14. INDICATIONS : Abdominal pain, nausea vomiting. IV CONTRAST: 100 cc Omnipaque 350 (iohexol) IV ORAL CONTRAST: No oral contrast ingested. RADIATION DOSE: 20.45 CTDIvol (mGy) MEDICAL HISTORY : Hypertension. Renal failure. Right BKA SURGICAL HISTORY : None. Below the knee amputation ENCOUNTER: Initial ACUITY: 1 day PAIN SCALE: 7/10 LOCATION: Left abdominal TECHNIQUE: Volumetric scanning of the abdomen and pelvis was performed. Using automated exposure control and ad justment of the mA and/or kV according to patient size, radiation dose was kept as low as reasonably achievable to obtain optimal diagnostic quality images. DICOM format image data is available electro nically for review and comparison. FINDINGS: LOWER LUNGS: The visualized lower lungs are clear. LIVER: Homogeneous density without lesion. There is no dilation of the biliary tree. No calcified gallston es. SPLEEN: Normal size without lesion. PANCREAS: Within normal limits. KIDNEYS: Normal in size and shape. There is no mass, stone or hydronephrosis. ADRENAL GLANDS: Within normal limits. VASCULAR: There is no aortic aneurysm. BOWEL/MESENTERY: The stomach, small bowel, and colon demonstrate no acute abnormality. There is no free intraperitone al air or fluid. ABDOMINAL WALL: Within normal limits. RETROPERITONEUM: There is no lymphadenopathy. BLADDER: No wall thickening or mass. REPRODUCTIVE: Within normal limits. INGUINAL: There is no lymphadenopathy or hernia. MUSCULOSKELETAL: No acute bony abnormality demonstrated. There are degenerative changes of the spine and both hips. Se veral old right transverse process fractures are seen of the lumbar spine. CONCLUSION: No acute abnormality. Ambrocio Humphrey MD on February 22, 2017 at 13:06 Board Certified Radiologist. This report was verified electronically.
[2017-02-22] MEDS ORDERED: PANT20 PO (13:58)
--- NOTE | 2017-02-23 17:43 | EKG ---
Date Performed: 02/22/2017 Time Performed: 11:09:19 PTAGE: 57 years EKG: Sinus rhythm Consider left anterolateral abnormality orearly injury pattern. ABNORMAL ECG PREVIOUS TRACING : 02/09/2017 22.12 DOCTOR: Stu Bowles Interpretating Date/Time 02/23/2017 17:43:06
== END 2017-02-22 14:14 | disposition home or self-care (01) ==
LOC: NEPC 10:54
DX: R10.9 Unspecified abdominal pain (principal); R11.2 Nausea with vomiting, unspecified; R19.7 Diarrhea, unspecified; M19.90 Unspecified osteoarthritis, unspecified site; R94.31 Abnormal electrocardiogram [ECG] [EKG]; I10 Essential (primary) hypertension; J44.9 Chronic obstructive pulmonary disease, unspecified; Z89.511 Acquired absence of right leg below knee; Z87.19 Personal history of other diseases of the digestive system
CPT/HCPCS: 74177; 80053; 81001; 83690; 85025; 93005; 96374; 96375; 99285; J2270; J2405; J7030; Q9967

== ENCOUNTER 2017-03-18 20:36 | Emergency (ER) | payer OTHER ==
[~2017-03-18 20:36] MED LIST changes: +PANT20 PO
[2017-03-18 20:38] VITALS: BP 168/98; PULSE 99; RESP 16; TEMP 98.2; O2SAT 99
[2017-03-18] MEDS ORDERED: GABAPENTIN 300 MG CAP PO ONE (21:15)
[2017-03-18] MEDS ORDERED: DOXYCYCLINE HYCLATE 100 MG CAP PO ONE (21:15)
--- NOTE | 2017-03-18 21:33 | PD ---
HPI Chief Complaint: Musculoskeletal Complaint Time Seen by Provider: 20:46 Travel History International Travel<30 days: No Contact w/Intl Traveler<30days: No Traveled to known affect area: No History of Present Illness HPI This patient is complaining of some scabbed lesions on his hands and legs. He' s had them 3 days. He has history of MRSA and is worried that that will come back. Denies fever or drainage. Symptoms severity is mild. PFSH Past Medical History Hx Anticoagulant Therapy: No Arthritis: Yes Asthma: No Blood Disorders: No Bipolar Disorder: Yes Anxiety: Yes Depression: Yes Heart Rhythm Problems: No Cancer: No Cardiac Catheterization: No Cardiovascular Problems: Yes (HTN) High Cholesterol: Yes Chemotherapy: No Chest Pain: No Congestive Heart Failure: No COPD: Yes Cerebrovascular Accident: No Diabetes: No Diminished Hearing: No Diverticulitis: Yes Endocrine: No Gastrointestinal Disorders: Yes (DIVERTICULITIS ) Genitourinary: No Headaches: No Heparin Induced Thrombocytopen: No Hypertension: Yes Immune Disorder: No Implanted Vascular Access Dvce: Yes Musculoskeletal: Yes (RT BKA) Neurologic: No Psychiatric: Yes (PTSD ) Reproductive: No Respiratory: Yes Integumentary: Yes (LEFT LEG CELLULITIS) Immunizations Current: Yes Radiation Therapy: No Renal Failure: Yes Seizures: No Sleep Apnea: No Past Surgical History Abdominal Surgery: Yes (2004 CAUTERIZED ULCER) Cardiac Surgery: No Coronary Artery Bypass Graft: No Ear Surgery: No Endocrine Surgery: No Eye Surgery: No Genitourinary Surgery: No Gynecologic Surgery: No Hysterectomy: No Joint Replacement: Yes (L FEMUR) Neurologic Surgery: No Oral Surgery: No Thoracic Surgery: No Other Surgery: Yes ("bleeding ulcers") Social History Alcohol Use: No Tobacco Use: Yes (3 cigars PER DAY) Substance Use: No Allergies-Medications (Allergen,Severity, Reaction): Coded Allergies: *MDRO Multi-Drug Resistant Organism (Verified Adverse Reaction, Unknown, ) MRSA (hand-12/25/15) Reported Meds & Prescriptions Reported Meds & Active Scripts Active Protonix (Pantoprazole Sodium) 20 Mg Tab 20 Mg PO DAILY 14 Days Bactrim DS (Sulfamethoxazole-Trimethoprim) 800-160 Mg Tab 1 Tab PO BID Hydrochlorothiazide 25 Mg Tab 25 Mg PO DAILY Oxycodone-Acetaminophen 5-325 (Oxycodone HCl/Acetaminophen) 5 Mg-325 Mg Tablet 1 Tab PO Q4H PRN Norvasc (Amlodipine Besylate) 10 Mg Tab 10 Mg PO DAILY Lisinopril 40 Mg Tab 40 Mg PO DAILY Gabapentin 600 Mg Tab 1,200 Mg PO TID 30 Days Wheelchair Elevated Leg (Device) 1 Mis Mis Ea .ROUTE DIRECTED [prosthetic right leg] Review of Systems General / Constitutional: No: Fever HENT: No: Headaches Cardiovascular: No: Chest Pain or Discomfort Respiratory: No: Cough Physical Exam Narrative Psych: Normal mood and affect. Normal insight and judgment. GASTROINTESTINAL: Abdomen soft, non-tender, nondistended. Positive bowel sounds. No hepato-splenomegaly, or palpable masses. No guarding. Skin: Has a few dried scabbed lesions on the legs that are not worrisome for active infection. However, he does have a few scabbed lesions in the hands that look more fresh. No active drainage or fluctuance or erythema Data Data Last Documented VS Vital Signs Date Time Temp Pulse Resp B/P (MAP) Pulse Ox O2 Delivery O2 Flow Rate FiO2 03/18/17 20:38 98.2 99 16 168/98 (121) 99 Room Air Orders Orders Gabapentin (Neurontin) (03/18/17 21:15) Doxycycline (Vibramycin) (03/18/17 21:15) MDM Medical Decision Making Medical Screen Exam Complete: Yes Emergency Medical Condition: Yes Medical Record Reviewed: Yes Differential Diagnosis Cellulitis, infected lesions, boil Narrative Course I have reviewed the patient's electronic medical record. Is a very frequent visitor for leg infections I gave him a dose of doxycycline and and gabapentin at his request Scripts written for a course of doxycycline as well as gabapentin which is a chronic med for him due to chronic leg pain Diagnosis Primary Impression: Infected skin lesion Additional Instructions: The patient was advised to follow up with their physician and return if they worsen. Med/Other Pt SpecificInfo: Prescription(s) given Disposition: 01 DISCHARGE HOME Condition: Stable Mario Tinajero MD Mar 18, 2017 21:33
[2017-03-18] MEDS ORDERED: DOXY100C PO (21:35)
[2017-03-18] MEDS ORDERED: GABA600T PO (21:35)
== END 2017-03-18 21:54 | disposition home or self-care (01) ==
LOC: NEPD 20:36
DX: L98.9 Disorder of the skin and subcutaneous tissue, unspecified (principal); M19.90 Unspecified osteoarthritis, unspecified site; F31.9 Bipolar disorder, unspecified; I10 Essential (primary) hypertension; J44.9 Chronic obstructive pulmonary disease, unspecified; E78.00 Pure hypercholesterolemia, unspecified; F43.10 Post-traumatic stress disorder, unspecified; Z87.19 Personal history of other diseases of the digestive system; Z89.511 Acquired absence of right leg below knee
CPT/HCPCS: 99283

== ENCOUNTER 2017-04-09 21:53 | Emergency (ER) | payer OTHER ==
[~2017-04-09] VITALS: Ht 177.8 cm; Wt 110.0 kg
[~2017-04-09 21:53] MED LIST changes: +DOXY100C PO
[2017-04-09 21:55] VITALS: BP 185/98; PULSE 92; RESP 16; TEMP 98.2; O2SAT 96
[2017-04-10] MEDS ORDERED: BACI500O9 TOPICAL (04:41)
[2017-04-10] MEDS ORDERED: BACT800T5 PO (04:41)
== END 2017-04-09 23:22 | disposition left against medical advice (07) ==
LOC: NED 21:53
DX: Z04.3 Encounter for examination and observation following other accident (principal); Z53.21 Procedure and treatment not carried out due to patient leaving prior to being seen by health care provider
CPT/HCPCS: 99281

== ENCOUNTER 2017-04-10 00:02 | Emergency (ER) | payer OTHER ==
[~2017-04-10] VITALS: Ht 177.8 cm; Wt 105.0 kg
[2017-04-10 00:07] VITALS: BP 176/98; PULSE 88; RESP 16; TEMP 96.7; O2SAT 98
--- NOTE | 2017-04-10 02:55 | PD ---
HPI Chief Complaint: Skin Problem Time Seen by Provider: 00:29 Travel History International Travel<30 days: No Contact w/Intl Traveler<30days: No Traveled to known affect area: No History of Present Illness HPI Patient is a 57-year-old male with diabetes he is unkempt he has multiple abrasions and infected ulcers on his hands and the anterior royal of his left leg he has a BKA on the right and he saying that he is in pain and he has multiple infected ulcers on the hands and leg he says his pants ripped off the scab and he has purulence in his anterior tibia left sided , there is slight purulent smell to the leg . Pt is slightly hostile and easy to aggressive talking . Pt needs cultures WBC eval and Vanco then PO clinda PFSH Past Medical History Hx Anticoagulant Therapy: No Arthritis: Yes Asthma: No Blood Disorders: No Bipolar Disorder: Yes Anxiety: Yes Depression: Yes Heart Rhythm Problems: No Cancer: No Cardiac Catheterization: No Cardiovascular Problems: Yes (HTN) High Cholesterol: Yes Chemotherapy: No Chest Pain: No Congestive Heart Failure: No COPD: Yes Cerebrovascular Accident: No Diabetes: No Diminished Hearing: No Diverticulitis: Yes Endocrine: No Gastrointestinal Disorders: Yes (DIVERTICULITIS ) Genitourinary: No Headaches: No Heparin Induced Thrombocytopen: No Hypertension: Yes Immune Disorder: No Implanted Vascular Access Dvce: Yes Musculoskeletal: Yes (RT BKA) Neurologic: No Psychiatric: Yes (PTSD ) Reproductive: No Respiratory: Yes Integumentary: Yes (LEFT LEG CELLULITIS) Immunizations Current: Yes Radiation Therapy: No Renal Failure: Yes Seizures: No Sleep Apnea: No Past Surgical History Abdominal Surgery: Yes (2004 CAUTERIZED ULCER) Cardiac Surgery: No Coronary Artery Bypass Graft: No Ear Surgery: No Endocrine Surgery: No Eye Surgery: No Genitourinary Surgery: No Gynecologic Surgery: No Hysterectomy: No Joint Replacement: Yes (R FEMUR) Neurologic Surgery: No Oral Surgery: No Thoracic Surgery: No Other Surgery: Yes ("bleeding ulcers") Family History Family Myocardial Infarction: Yes (GRANDFATEHR PASSED FOR[place]) Social History Alcohol Use: No Tobacco Use: Yes (3 cigars PER DAY) Substance Use: No Allergies-Medications (Allergen,Severity, Reaction): Coded Allergies: *MDRO Multi-Drug Resistant Organism (Verified Adverse Reaction, Unknown, ) MRSA (hand-12/25/15) Reported Meds & Prescriptions Reported Meds & Active Scripts Active Bacitracin Topical 500 Unit/Gm Oint 1 Applic TOPICAL TID Bactrim DS (Sulfamethoxazole-Trimethoprim) 800-160 Mg Tab 1 Tab PO BID Doxycycline Hyclate 100 Mg Cap 100 Mg PO BID Gabapentin 600 Mg Tab 600 Mg PO TID Protonix (Pantoprazole Sodium) 20 Mg Tab 20 Mg PO DAILY 14 Days Bactrim DS (Sulfamethoxazole-Trimethoprim) 800-160 Mg Tab 1 Tab PO BID Hydrochlorothiazide 25 Mg Tab 25 Mg PO DAILY Oxycodone-Acetaminophen 5-325 (Oxycodone HCl/Acetaminophen) 5 Mg-325 Mg Tablet 1 Tab PO Q4H PRN Norvasc (Amlodipine Besylate) 10 Mg Tab 10 Mg PO DAILY Lisinopril 40 Mg Tab 40 Mg PO DAILY Gabapentin 600 Mg Tab 1,200 Mg PO TID 30 Days Wheelchair Elevated Leg (Device) 1 Mis Mis Ea .ROUTE DIRECTED [prosthetic right leg] Review of Systems Except as stated in HPI: all other systems reviewed are Neg Physical Exam Narrative GENERAL: Patient is mildly agitated and talks slightly aggressively but is cooperative SKIN: Warm and dry. His hands have erosive ulcers on both hands one on the right PIP area of the middle finger is an erosive infected ulcer other areas have abrasions that look like they've scabbed over HEAD: Atraumatic. Normocephalic. EYES: Pupils equal and round. No scleral icterus. No injection or drainage. ENT: No nasal bleeding or discharge. Mucous membranes pink and moist. NECK: Trachea midline. No JVD. CARDIOVASCULAR: Regular rate and rhythm. RESPIRATORY: No accessory muscle use. Clear to auscultation. Breath sounds equal bilaterally. GASTROINTESTINAL: Abdomen soft, non-tender, nondistended. Hepatic and splenic margins not palpable. MUSCULOSKELETAL: Extremities right BKA left anterior royal has a ulcer redness erythema and purulence to the anterior tibia NEUROLOGICAL: Awake and alert. No obvious cranial nerve deficits. Motor grossly within normal limits. Five out of 5 muscle strength in the arms and legs. Normal speech. PSYCHIATRIC: Appropriate mood and affect; insight and judgment normal. Data Data Last Documented VS Vital Signs Date Time Temp Pulse Resp B/P (MAP) Pulse Ox O2 Delivery O2 Flow Rate FiO2 04/10/17 05:53 80 16 140/76 (97) 100 04/10/17 00:07 96.7 Room Air Orders Orders Complete Blood Count With Diff (04/10/17 02:26) Wound Culture And Gram Stain (04/10/17 02:26) Blood Culture (04/10/17 02:26) Comprehensive Metabolic Panel (04/10/17 02:48) Vancomycin Inj (Vancomycin Inj) (04/10/17 03:00) Bacitracin Oint (Baciguent Oint) (04/10/17 04:15) Ed Discharge Order (04/10/17 04:44) Labs Laboratory Tests Test 04/10/17 02:15 White Blood Count 7.6 TH/MM3 Red Blood Count 4.65 MIL/MM3 Hemoglobin 14.1 GM/DL Hematocrit 41.2 % Mean Corpuscular Volume 88.5 FL Mean Corpuscular Hemoglobin 30.3 PG Mean Corpuscular Hemoglobin Concent 34.2 % Red Cell Distribution Width 15.0 % Platelet Count 226 TH/MM3 Mean Platelet Volume 7.5 FL Neutrophils (%) (Auto) 53.9 % Lymphocytes (%) (Auto) 32.2 % Monocytes (%) (Auto) 9.7 % Eosinophils (%) (Auto) 3.5 % Basophils (%) (Auto) 0.7 % Neutrophils # (Auto) 4.1 TH/MM3 Lymphocytes # (Auto) 2.5 TH/MM3 Monocytes # (Auto) 0.7 TH/MM3 Eosinophils # (Auto) 0.3 TH/MM3 Basophils # (Auto) 0.1 TH/MM3 CBC Comment DIFF FINAL Differential Comment Blood Urea Nitrogen 9 MG/DL Creatinine 0.79 MG/DL Random Glucose 102 MG/DL Total Protein 8.1 GM/DL Albumin 3.0 GM/DL Calcium Level 8.7 MG/DL Alkaline Phosphatase 115 U/L Aspartate Amino Transf (AST/SGOT) 70 U/L Alanine Aminotransferase (ALT/SGPT) 78 U/L Total Bilirubin 0.4 MG/DL Sodium Level 137 MEQ/L Potassium Level 3.9 MEQ/L Chloride Level 105 MEQ/L Carbon Dioxide Level 25.7 MEQ/L Anion Gap 6 MEQ/L Estimat Glomerular Filtration Rate 102 ML/MIN [facility] Medical Decision Making Medical Screen Exam Complete: Yes Emergency Medical Condition: Yes Differential Diagnosis Infected abrasions versus skin popping infections versus MRSA versus Narrative Course Patient is given a gram of vancomycin we send off his labs his CBC is normal there is no elevated white count there is no neutrophilic shift he is safe for discharge I will give him Bactrim and bacitracin scrips that should be fillable at [facility] pharmacy Diagnosis Primary Impression: Infected skin lesion Patient Instructions: Bacitracin (On the skin), General Instructions, How to Prevent Pressure Ulcers (ED) Scripts Bacitracin Topical (Bacitracin Topical) 500 Unit/Gm Oint 1 APPLIC TOPICAL TID for Infection, #30 GM 0 Refills Prov: Adan Matamoros MD 04/10/17 Sulfamethoxazole-Trimethoprim (Bactrim DS) 800-160 Mg Tab 1 TAB PO BID for Infection, #20 TAB 0 Refills Prov: Adan Matamoros MD 04/10/17 Disposition: 01 DISCHARGE HOME Condition: Good Adan Matamoros MD Apr 10, 2017 02:55
[2017-04-10] MEDS ORDERED: VANCOMYCIN INJ 1,000 MG in SODIUM CHLOR 0.9% 250 ML INJ 250 ML IV ONE (03:00)
[2017-04-10 03:05] LABS: AUTOMATED NEUTROPHIL # 4.1 TH/MM3 (1.8-7.7); BASOPHIL # 0.1 TH/MM3 (0-0.2); BASOPHIL % 0.7 % (0.0-2.0); EOSINOPHIL # 0.3 TH/MM3 (0-0.4); EOSINOPHIL % 3.5 % (0.0-4.0); HEMATOCRIT 41.2 % (39.0-51.0); HEMOGLOBIN 14.1 GM/DL (13.0-17.0); LYMPH % 32.2 % (9.0-44.0); LYMPHOCYTE # 2.5 TH/MM3 (1.0-4.8); MEAN CELL VOLUME 88.5 FL (80.0-100.0); MEAN CORPUSCULAR HEMOGLOBIN 30.3 PG (27.0-34.0); MEAN CORPUSCULAR HGB CONC 34.2 % (32.0-36.0); MEAN PLATELET VOLUME 7.5 FL (7.0-11.0); MONO % 9.7 % (0.0-8.0); MONOCYTE # 0.7 TH/MM3 (0-0.9); NEUT % 53.9 % (16.0-70.0); PLATELET COUNT 226 TH/MM3 (150-450); RED BLOOD COUNT 4.65 MIL/MM3 (4.50-5.90); WHITE BLOOD COUNT 7.6 TH/MM3 (4.0-11.0)
[2017-04-10 03:24] LABS: ALKALINE PHOSPHATASE 115 U/L (45-117); TOTAL BILIRUBIN ADULT 0.4 MG/DL (0.2-1.0); TOTAL PROTEIN 8.1 GM/DL (6.4-8.2)
[2017-04-10 03:32] LABS: ALT (GPT) 78 U/L (12-78); AST (GOT) 70 U/L (15-37); BICARBONATE 25.7 MEQ/L (21.0-32.0); BLOOD UREA NITROGEN 9 MG/DL (7-18); CALCIUM 8.7 MG/DL (8.5-10.1); CHLORIDE 105 MEQ/L (98-107); CREATININE 0.79 MG/DL (0.60-1.30); GLOMERULAR FILTRATION RATE 102 ML/MIN (>89); GLUCOSE,RANDOM 102 MG/DL (74-106); SODIUM (NA) 137 MEQ/L (136-145)
[2017-04-10] MEDS ORDERED: BACITRACIN TOP OINT 15 GM TUBE TOPICAL ONE (04:15)
[2017-04-10] MEDS ORDERED: BACI500O9 TOPICAL (04:41)
[2017-04-10] MEDS ORDERED: BACT800T5 PO (04:41)
[2017-04-10 05:53] VITALS: BP 140/76
== END 2017-04-10 05:40 | disposition home or self-care (01) ==
LOC: NEPE 00:02
DX: L08.9 Local infection of the skin and subcutaneous tissue, unspecified (principal); B95.62 Methicillin resistant Staphylococcus aureus infection as the cause of diseases classified elsewhere; E11.622 Type 2 diabetes mellitus with other skin ulcer; L97.829 Non-pressure chronic ulcer of other part of left lower leg with unspecified severity; F17.290 Nicotine dependence, other tobacco product, uncomplicated; I10 Essential (primary) hypertension; Z89.511 Acquired absence of right leg below knee
CPT/HCPCS: 80053; 85025; 86403; 87040; 87070; 87186; 96365; 99284; J3370; J7050

== ENCOUNTER 2017-04-24 00:24 | Inpatient (IN) | payer OTHER ==
[~2017-04-24] VITALS: Ht 152.4 cm; Wt 107.7 kg
[~2017-04-24 00:24] MED LIST changes: +BACI500O9 TOPICAL
[2017-04-24 00:25] VITALS: BP 187/112; PULSE 92; RESP 16; TEMP 97.9; O2SAT 98
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
[2017-04-24 02:19] LABS: AUTOMATED NEUTROPHIL # 4.1 TH/MM3 (1.8-7.7); BASOPHIL # 0.1 TH/MM3 (0-0.2); EOSINOPHIL # 0.2 TH/MM3 (0-0.4); EOSINOPHIL % 2.8 % (0.0-4.0); HEMATOCRIT 41.7 % (39.0-51.0); HEMOGLOBIN 14.5 GM/DL (13.0-17.0); LYMPH % 33.7 % (9.0-44.0); LYMPHOCYTE # 2.5 TH/MM3 (1.0-4.8); MEAN CORPUSCULAR HEMOGLOBIN 30.6 PG (27.0-34.0); MEAN CORPUSCULAR HGB CONC 34.8 % (32.0-36.0); MEAN PLATELET VOLUME 7.5 FL (7.0-11.0); MONO % 6.9 % (0.0-8.0); MONOCYTE # 0.5 TH/MM3 (0-0.9); NEUT % 55.6 % (16.0-70.0); PLATELET COUNT 180 TH/MM3 (150-450); RED BLOOD COUNT 4.74 MIL/MM3 (4.50-5.90); RED CELL DISTRIBUTION WIDTH 15.1 % (11.6-17.2); WHITE BLOOD COUNT 7.5 TH/MM3 (4.0-11.0)
[2017-04-24] MEDS ORDERED: SULFAMETHOXAZOLE-TRIMETHOPRIM DS 800-160 MG TAB PO ONE (02:30)
[2017-04-24] MEDS ORDERED: BACT800T5 PO (02:34)
[2017-04-24 02:35] LABS: ALBUMIN 3.1 GM/DL (3.4-5.0); ALT (GPT) 157 U/L (12-78); AST (GOT) 127 U/L (15-37); BICARBONATE 25.6 MEQ/L (21.0-32.0); BLOOD UREA NITROGEN 12 MG/DL (7-18); CALCIUM 8.7 MG/DL (8.5-10.1); CHLORIDE 106 MEQ/L (98-107); CREATININE 0.73 MG/DL (0.60-1.30); GLOMERULAR FILTRATION RATE 112 ML/MIN (>89); GLUCOSE,RANDOM 108 MG/DL (74-106); SODIUM (NA) 138 MEQ/L (136-145)
[2017-04-24 02:37] LABS: ALKALINE PHOSPHATASE 108 U/L (45-117); TOTAL BILIRUBIN ADULT 0.7 MG/DL (0.2-1.0); TOTAL PROTEIN 7.9 GM/DL (6.4-8.2)
[2017-04-24 07:22] VITALS: BP 142/85; PULSE 77; RESP 16; TEMP 98.5; O2SAT 98
[2017-04-24] MEDS ORDERED: LORazepam 2 MG/ML VIAL IM PRN (11:00)
[2017-04-24] MEDS ORDERED: ACETAMINOPHEN 325 MG TAB PO PRN (11:00)
[2017-04-24] MEDS ORDERED: ALUMINUM/MAGNESIUM/SIMETH 30 ML CUP PO PRN (11:00)
[2017-04-24] MEDS ORDERED: diphenhydrAMINE HCL 50 MG/ML VIAL IM PRN (11:00)
[2017-04-24] MEDS ORDERED: MAGNESIUM HYDROXIDE SUSP 30 ML CUP PO PRN (11:00)
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
[2017-04-24 12:53] VITALS: BP_SYST 134; BP_SYST 170; BP_DIAS 100; BP_DIAS 93
[2017-04-24] MEDS: GABAPENTIN 300 MG CAP PO SCH ×2 (13:00→17:11)
[2017-04-24] MEDS: BACITRACIN TOP OINT 15 GM TUBE TOPICAL SCH ×2 (13:00→17:11)
[2017-04-24 13:30] VITALS: BP 163/103; PULSE 88; RESP 19; TEMP 98.8; O2SAT 98
[2017-04-24] MEDS: LORazepam 1 MG TAB PO PRN ×2 (14:35→19:58)
[2017-04-24] MEDS: NICOTINE 21 MG/24 HR PATCH T-DERMAL SCH (15:30)
[2017-04-24 18:13] VITALS: BP 171/103; PULSE 96; RESP 19; TEMP 98.2; O2SAT 96
[2017-04-24] MEDS: cloNIDine HCL 0.1 MG TAB PO PRN (18:26)
[2017-04-24] MEDS: diphenhydrAMINE HCL 50 MG CAP PO PRN (20:25)
[2017-04-24] MEDS: SULFAMETHOXAZOLE-TRIMETHOPRIM DS 800-160 MG TAB PO SCH (20:25)
[2017-04-24] MEDS: DOXYCYCLINE HYCLATE 100 MG CAP PO SCH (20:25)
[2017-04-25] MEDS: oxyCODONE/ACETAMINOPHEN 5 MG/325 MG TAB PO PRN ×2 (05:33→22:33)
[2017-04-25] MEDS: LORazepam 1 MG TAB PO PRN (05:33)
[2017-04-25] MEDS: cloNIDine HCL 0.1 MG TAB PO PRN (05:33)
[2017-04-25 05:50] VITALS: BP 189/111; PULSE 92; RESP 18; TEMP 98.3; O2SAT 97
[2017-04-25] MEDS: DOXYCYCLINE HYCLATE 100 MG CAP PO SCH ×2 (08:58→21:12)
[2017-04-25] MEDS: PANTOPRAZOLE SOD 20 MG DELAYED RELEASE TAB PO SCH (08:58)
[2017-04-25] MEDS: GABAPENTIN 300 MG CAP PO SCH ×3 (08:59→18:26)
[2017-04-25] MEDS: SULFAMETHOXAZOLE-TRIMETHOPRIM DS 800-160 MG TAB PO SCH (08:59)
[2017-04-25] MEDS: HYDROCHLOROTHIAZIDE 25 MG TAB PO SCH (08:59)
[2017-04-25] MEDS: LISINOPRIL 20 MG TAB PO SCH (08:59)
[2017-04-25] MEDS: REMOVE OLD PATCH T-DERMAL SCH (09:00)
[2017-04-25] MEDS: BACITRACIN TOP OINT 15 GM TUBE TOPICAL SCH ×3 (09:00→18:00)
[2017-04-25] MEDS: NICOTINE 21 MG/24 HR PATCH T-DERMAL SCH (09:03)
[2017-04-25 10:07] LABS: AUTOMATED NEUTROPHIL # 2.5 TH/MM3 (1.8-7.7); BASOPHIL % 0.6 % (0.0-2.0); EOSINOPHIL # 0.2 TH/MM3 (0-0.4); EOSINOPHIL % 3.3 % (0.0-4.0); HEMATOCRIT 40.9 % (39.0-51.0); HEMOGLOBIN 14.4 GM/DL (13.0-17.0); LYMPH % 41.5 % (9.0-44.0); LYMPHOCYTE # 2.2 TH/MM3 (1.0-4.8); MEAN CELL VOLUME 88.8 FL (80.0-100.0); MEAN CORPUSCULAR HEMOGLOBIN 31.3 PG (27.0-34.0); MEAN CORPUSCULAR HGB CONC 35.3 % (32.0-36.0); MEAN PLATELET VOLUME 8.1 FL (7.0-11.0); MONO % 7.3 % (0.0-8.0); MONOCYTE # 0.4 TH/MM3 (0-0.9); NEUT % 47.3 % (16.0-70.0); PLATELET COUNT 176 TH/MM3 (150-450); WHITE BLOOD COUNT 5.3 TH/MM3 (4.0-11.0)
[2017-04-25 10:35] LABS: ALBUMIN 2.8 GM/DL (3.4-5.0); AST (GOT) 125 U/L (15-37); BICARBONATE 24.5 MEQ/L (21.0-32.0); BLOOD UREA NITROGEN 12 MG/DL (7-18); CALCIUM 8.8 MG/DL (8.5-10.1); CHLORIDE 101 MEQ/L (98-107); CREATININE 0.97 MG/DL (0.60-1.30); GLOMERULAR FILTRATION RATE 80 ML/MIN (>89); GLUCOSE,RANDOM 96 MG/DL (74-106); SODIUM (NA) 135 MEQ/L (136-145)
[2017-04-25 10:36] LABS: CHOLESTEROL 102 MG/DL (120-200); TRIGLYCERIDES 167 MG/DL (42-150)
--- NOTE | 2017-04-25 11:02 | HHI.PYPN ---
Subjective Remarks Patient was seen and case discussed with nursing. Patient is very irritable and angry. He is loud yelling with psychomotor agitation. Complaining about trivial matters of this care here. Blood pressures elevated. The medical doctor will be completing his consult today. Patient threatens to kill himself if he is discharge. Denies suicidal ideation intent or plan in this hospital Mental Status Examination Appearance: Disheveled Consciousness: Alert Orientation: x4 Motor Activity: Other Speech: Pressured Language: Adequate Fund of Knowledge: Adequate Attention and Concentration: Adequate Memory: Unremarkable Mood: Angry, Oppositional Affect: Sad, Anxious Thought Process & Associations: Intact Thought Content: Appropriate Hallucination Type: None Delusion Type: None Suicidal Ideation: Yes Suicidal Plan: Yes Suicidal Intention: No Homicidal Ideation: No Homicidal Plan: No Homicidal Intention: No Insight: Fair Judgment: Impulsive Results Labs Test 04/25/17 09:20 White Blood Count 5.3 TH/MM3 Red Blood Count 4.60 MIL/MM3 Hemoglobin 14.4 GM/DL Hematocrit 40.9 % Mean Corpuscular Volume 88.8 FL Mean Corpuscular Hemoglobin 31.3 PG Mean Corpuscular Hemoglobin Concent 35.3 % Red Cell Distribution Width 15.0 % Platelet Count 176 TH/MM3 Mean Platelet Volume 8.1 FL Neutrophils (%) (Auto) 47.3 % Lymphocytes (%) (Auto) 41.5 % Monocytes (%) (Auto) 7.3 % Eosinophils (%) (Auto) 3.3 % Basophils (%) (Auto) 0.6 % Neutrophils # (Auto) 2.5 TH/MM3 Lymphocytes # (Auto) 2.2 TH/MM3 Monocytes # (Auto) 0.4 TH/MM3 Eosinophils # (Auto) 0.2 TH/MM3 Basophils # (Auto) 0.0 TH/MM3 CBC Comment DIFF FINAL Differential Comment Blood Urea Nitrogen 12 MG/DL Creatinine 0.97 MG/DL Random Glucose 96 MG/DL Albumin 2.8 GM/DL Calcium Level 8.8 MG/DL Aspartate Amino Transf (AST/SGOT) 125 U/L Sodium Level 135 MEQ/L Potassium Level 3.7 MEQ/L Chloride Level 101 MEQ/L Carbon Dioxide Level 24.5 MEQ/L Anion Gap 10 MEQ/L Estimat Glomerular Filtration Rate 80 ML/MIN Triglycerides Level 167 MG/DL Cholesterol Level 102 MG/DL Vitals/IOs Vital Signs Date Time Temp Pulse Resp B/P (MAP) Pulse Ox O2 Delivery O2 Flow Rate FiO2 04/25/17 05:50 98.3 92 18 189/111 (137) 97 04/24/17 07:22 Room Air Assessment & Plan Problem List: (1) Severe major depression, single episode, without psychotic features ICD Codes: F32.2 - Major depressive disorder, single episode, severe without psychotic features Assessment & Plan Continue current treatment plan Justification for Cont. Inpt. Patient would decompensate in a less restrictive setting Zelalem Tian DO Apr 25, 2017 11:02
[2017-04-25 11:03] LABS: ALKALINE PHOSPHATASE 109 U/L (45-117); ALT (GPT) 143 U/L (12-78); CHOLESTEROL/ HDL RATIO 3.96 RATIO; HDL CHOLESTEROL 25.7 MG/DL (40.0-60.0); LDL CHOLESTEROL 43 MG/DL (0-99); TOTAL BILIRUBIN ADULT 0.7 MG/DL (0.2-1.0); TOTAL PROTEIN 7.1 GM/DL (6.4-8.2)
[2017-04-25 12:24] LABS: HEMOGLOBIN A1C 5.1 % (4.3-6.0)
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
[2017-04-25] MEDS: diphenhydrAMINE HCL 50 MG CAP PO PRN (21:12)
--- NOTE | 2017-04-25 21:54 | RADRPT ---
EXAM DATE/TIME: 04/25/2017 21:22 [place] COMPARISON: No previous studies available for comparison. INDICATIONS : Left leg swelling. MEDICAL HISTORY : Hypercholesterolemia. Hypertension. Arthritis. Diverticulitis. Bipolar disorder. PTSD. Measles. Cellu litis. MRSA. Blood transfusion. SURGICAL HISTORY : Right below the knee amputation. Ulcer repair. Left leg surgery. ENCOUNTER: Subsequent ACUITY: 1 week PAIN SCORE: 4/10 LOCATION: Left leg. TECHNIQUE: Venous ultrasound of the leg was performed from the inguinal ligament to the proximal calf. Real-cesilia e, color Doppler and spectral tracing, compression and augmentation techniques were used. FINDINGS: There is normal compressibility of the deep venous system from the inguinal region to the proximal ca lf. No echogenic clot is seen in the lumen of the common femoral, femoral, popliteal, and posterior tibial veins. There is a normal response of the venous system to proximal and distal augmentation an d respiration. CONCLUSION: No DVT left leg. Johnny Ni MD on April 25, 2017 at 21:51 Board Certified Radiologist. This report was verified electronically.
[2017-04-26] MEDS: LORazepam 1 MG TAB PO PRN ×2 (01:17→21:18)
[2017-04-26 06:56] VITALS: BP 143/91; PULSE 90; RESP 16; TEMP 97.6; O2SAT 97
[2017-04-26] MEDS: NICOTINE 21 MG/24 HR PATCH T-DERMAL SCH (09:00)
[2017-04-26] MEDS: REMOVE OLD PATCH T-DERMAL SCH (09:00)
[2017-04-26] MEDS: HYDROCHLOROTHIAZIDE 25 MG TAB PO SCH (10:29)
[2017-04-26] MEDS: LISINOPRIL 20 MG TAB PO SCH (10:29)
[2017-04-26] MEDS: PANTOPRAZOLE SOD 20 MG DELAYED RELEASE TAB PO SCH (10:29)
[2017-04-26] MEDS: GABAPENTIN 300 MG CAP PO SCH ×3 (10:30→18:50)
[2017-04-26] MEDS: BACITRACIN TOP OINT 15 GM TUBE TOPICAL SCH ×3 (10:30→18:49)
[2017-04-26] MEDS: DOXYCYCLINE HYCLATE 100 MG CAP PO SCH ×2 (10:33→21:17)
[2017-04-26] MEDS: oxyCODONE/ACETAMINOPHEN 5 MG/325 MG TAB PO PRN ×3 (10:47→21:18)
--- NOTE | 2017-04-26 11:48 | HHI.PYPN ---
Subjective Remarks Patient was seen and case discussed with nursing. Patient continues to be irritable, elevated, with pressured speech. When he describes any small stressor he gets loud angry and accusative. Says his mind is "racing." His main stressors being homeless in a wheelchair in [facility]. He was reminded social workers COMING back tomorrow. Endorses fleeting suicidal thoughts but denies any persistent ideation, intent or plan. Mental Status Examination Appearance: Disheveled Consciousness: Alert Orientation: x4 Motor Activity: Other Speech: Pressured Language: Adequate Fund of Knowledge: Adequate Attention and Concentration: Adequate Memory: Unremarkable Mood: Angry, Oppositional Affect: Sad, Anxious Thought Process & Associations: Intact Thought Content: Appropriate Hallucination Type: None Delusion Type: None Suicidal Ideation: Yes Suicidal Plan: No Suicidal Intention: No Homicidal Ideation: No Homicidal Plan: No Homicidal Intention: No Insight: Fair Judgment: Impulsive Results Vitals/IOs Vital Signs Date Time Temp Pulse Resp B/P (MAP) Pulse Ox O2 Delivery O2 Flow Rate FiO2 04/26/17 06:56 97.6 90 16 143/91 (108) 97 04/24/17 07:22 Room Air Assessment & Plan Problem List: (1) Severe major depression, single episode, without psychotic features ICD Codes: F32.2 - Major depressive disorder, single episode, severe without psychotic features Assessment & Plan Continue current treatment plan Justification for Cont. Inpt. Patient will decompensate in a less restrictive setting Zelalem Tian DO Apr 26, 2017 11:48
--- NOTE | 2017-04-26 12:54 | EKG ---
Date Performed: 04/25/2017 Time Performed: 13:42:30 PTAGE: 57 years EKG: Sinus rhythm SEPTAL MYOCARDIAL INFARCTION , OF INDETERMINATE AGE ABNORMAL ECG Since PREVIOUS TRACING , no significant change noted PREVIOUS TRACIN02/22/2017 11.09 DOCTOR: Fred Lo Interpretating Date/Time 04/26/2017 12:53:01
--- NOTE | 2017-04-26 15:10 | HHI.PR ---
Subjective Remarks Stable, ultrasound showed no DVT Objective Vitals Vital Signs Date Time Temp Pulse Resp B/P (MAP) Pulse Ox O2 Delivery O2 Flow Rate FiO2 04/26/17 06:56 97.6 90 16 143/91 (108 97 Result Diagram: 04/25/1791904/25/17919 Objective Remarks GENERAL: This is a well-nourished, well-developed patient, in no apparent distress. SKIN: No rashes, ecchymoses or lesions. Cool and dry. HEAD: Atraumatic. Normocephalic. No temporal or scalp tenderness. EYES: Pupils equal round and reactive. Extraocular motions intact. No scleral icterus. No injection or drainage. ENT: Nose without bleeding, purulent drainage or septal hematoma. Throat without erythema, tonsillar hypertrophy or exudate. Uvula midline. Airway patent. NECK: Trachea midline. No JVD or lymphadenopathy. Supple, nontender, no meningeal signs. CARDIOVASCULAR: Regular rate and rhythm without murmurs, gallops, or rubs. RESPIRATORY: Clear to auscultation. Breath sounds equal bilaterally. No wheezes , rales, or rhonchi. GASTROINTESTINAL: Abdomen soft, non-tender, nondistended. No hepato-splenomegaly , or palpable masses. No guarding. MUSCULOSKELETAL: Eright lower BKA stump clean and dry, left lower extremity with ,erythema no warmth NEUROLOGICAL: Awake and alert. Cranial nerves II through XII intact. Motor and sensory grossly within normal limits. Five out of 5 muscle strength in all muscle groups. Normal speech. A/P Assessment and Plan 57 years old male with multiple medical problem admitted to psychiatry units and hospitalist consulted to see patient regarding lower extremity pain, patient seems to have lower extremity erythema and no warmth, he was started on doxycycline ultrasound of the lower extremity negative for DVT, recommend moisturizing the skin in order to avoid skin break and infection. For pain management patient is on gabapentin which I agree with, he can be on tramadol as needed History of positive hepatitis hepatitis C Increase transaminase Abdominal CT from 02/2017 was within normal limits, gallbladder ultrasound in 2015 revealed fatty liver Patient need to follow up with GI outpatient Continue monitoring Laura Whipple MD Apr 26, 2017 15:10
[2017-04-26 18:17] VITALS: BP 147/70; PULSE 96; RESP 18; TEMP 97.3; O2SAT 95
[2017-04-26] MEDS: diphenhydrAMINE HCL 50 MG CAP PO PRN (21:18)
[2017-04-27] MEDS: LORazepam 1 MG TAB PO PRN (03:30)
[2017-04-27] MEDS: oxyCODONE/ACETAMINOPHEN 5 MG/325 MG TAB PO PRN ×2 (03:30→20:36)
[2017-04-27 08:00] VITALS: BP 104/73; PULSE 83; RESP 16; TEMP 97.5; O2SAT 98
[2017-04-27] MEDS: GABAPENTIN 300 MG CAP PO SCH ×3 (08:08→17:59)
[2017-04-27] MEDS: PANTOPRAZOLE SOD 20 MG DELAYED RELEASE TAB PO SCH (08:09)
[2017-04-27] MEDS: DOXYCYCLINE HYCLATE 100 MG CAP PO SCH ×2 (08:09→20:39)
[2017-04-27] MEDS: NICOTINE 21 MG/24 HR PATCH T-DERMAL SCH (08:10)
[2017-04-27] MEDS: LISINOPRIL 20 MG TAB PO SCH (08:22)
[2017-04-27] MEDS: HYDROCHLOROTHIAZIDE 25 MG TAB PO SCH (08:22)
[2017-04-27] MEDS: REMOVE OLD PATCH T-DERMAL SCH (08:23)
[2017-04-27] MEDS: BACITRACIN TOP OINT 15 GM TUBE TOPICAL SCH ×3 (08:48→17:59)
--- NOTE | 2017-04-27 09:22 | HHI.PYPN ---
Subjective Chief Complaint: Depression, SI Remarks Patient seen and examined with nurse. Chart reviewed. Case discussed with nursing staff are reports over the weekend the patient was labile, yelling and screaming and throwing items at staff. This morning, the patient is calmer and more cooperative. He is noted to be fairly medication seeking. Charting indicates that the patient ate fairly well yesterday but slept only 1 hour overnight. On my examination today, the patient says that he is feeling depressed secondary to the difficulty of living in a wheelchair in a homeless situation and [place]. He says that he has no family or anyone else for support. He endorses suicidal ideation with plans to roll into traffic or possibly to grab an electrical box. He denies any intention of hurting himself on the unit. He endorses multiple psychosocial stressors including homelessness , joblessness, and also believes that his penis is shrinking because he is in a wheelchair. He is agreeable to initiation of an antidepressant. No hypomanic/ manic symptoms. He endorses chronic paresthesias in his stump, gabapentin helps but only partially. No other physical complaints presently. Review of Systems Except as stated in HPI: all other systems reviewed are Neg Mental Status Examination Appearance: Disheveled Consciousness: Alert Orientation: x4 Motor Activity: Other (no motor abnormalities noted) Speech: Unremarkable Language: Adequate Fund of Knowledge: Adequate Attention and Concentration: Adequate Memory: Unremarkable Mood: Other (Depressed) Affect: Anxious, Other (tearful, dysphoric) Thought Process & Associations: Intact, Linear Thought Content: Appropriate Hallucination Type: None Delusion Type: None Suicidal Ideation: Yes Suicidal Plan: Yes (roll into traffic, grab electrical box.) Suicidal Intention: No (Denies any urge to hurt self on unit.) Homicidal Ideation: No Homicidal Plan: No Homicidal Intention: No Insight: Fair Judgment: Impulsive Results Labs Item Value Date Time White Blood Count 5.3 TH/MM3 04/25/17919 Hemoglobin 14.4 GM/DL 04/25/17919 Platelet Count 176 TH/MM3 04/25/17 09 Sodium Level 135 MEQ/L L 04/25/17919 Potassium Level 3.7 MEQ/L 04/25/17919 Chloride Level 101 MEQ/L 04/25/17919 Carbon Dioxide Level 24.5 MEQ/L 04/25/17 0920 Blood Urea Nitrogen 12 MG/DL 04/25/17 0920 Creatinine 0.97 MG/DL 04/25/17 0920 Estimat Glomerular Filtration Rate 80 ML/MIN L 04/25/17 0920 Random Glucose 96 MG/DL 04/25/17 0920 Hemoglobin A1c 5.1 % 04/25/17 0920 Aspartate Amino Transf (AST/SGOT) 125 U/L H 04/25/17 0920 Alanine Aminotransferase (ALT/SGPT) 143 U/L H 04/25/17 0920 25-Hydroxy Vitamin D Total 19.9 ng/ML L 04/25/17 0920 Thyroid Stimulating Hormone 3rd Gen 1.920 uIU/ML 04/25/17 09 Vitamin B12 Level 337 PG/ML 04/25/17 0920 Urine Opiates Screen NEG 04/24/17 0200 Urine Barbiturates Screen NEG 04/24/17 0200 Urine Amphetamines Screen NEG 04/24/17 0200 Urine Benzodiazepines Screen NEG 04/24/17 0200 Urine Cocaine Screen NEG 04/24/17 0200 Urine Cannabinoids Screen NEG 04/24/17 0200 Ethyl Alcohol Level LESS THAN 3 MG/DL 04/24/17 0200 Last Impressions Lower Extremity Ultrasound 04/25/17 0000 Signed Impressions: Service Date/Time: Thursday, April 25, 2017 21:22 - CONCLUSION: No DVT left leg. Johnny Ni MD Vitals/IOs Vital Signs Date Time Temp Pulse Resp B/P (MAP) Pulse Ox O2 Delivery O2 Flow Rate FiO2 04/26/17 18:17 97.3 96 18 147/70 (95) 95 04/24/17 07:22 Room Air Assessment & Plan Problem List: (1) Adjustment disorder with depressed mood ICD Codes: F43.21 - Adjustment disorder with depressed mood Assessment & Plan Given neuropathic pain, patient would likely benefit from SNRI. He has a mild transaminitis and so will avoid Cymbalta, as this agent can sometimes be associated with LFT elevation. I will start Effexor XR 37.5mg daily with plans to titrate to effect. Patient is using p.r.n. Ativan chiefly as a hypnotic; replace Ativan with Atarax for anxiety and trazodone for sleep. Vitamin D supplement. R/B/A for med changes d/w patient. Hospitalist input noted and appreciated. Continue to monitor on inpatient unit. Continue other medications and care as ordered. Justification for Cont. Inpt. Monitoring for impairments in safety. Medication changes. High risk for decompensation in less restrictive environment. Discharge Planning Patient interested in ASSISTED placement. Counselor to try to arrange this if patient has a payer source for this. Case d/w counselor. Request HC Surrog/Guard Advoc?: No Tc Colunga MD Apr 27, 2017 09:22
[2017-04-27] MEDS ORDERED: DEXTROSE 50% IN WATER 50 ML VIAL(D50) IV PUSH PRN (09:30)
[2017-04-27] MEDS ORDERED: GLUCAGON 1 MG/ML VIAL OTHER PRN (09:30)
[2017-04-27] MEDS: INSULIN ASPART SUPPLEMENTAL SCALE SQ SCH ×2 (11:01→15:15)
[2017-04-27] MEDS: VENLAFAXINE HCL XR 37.5 MG CAP PO SCH (11:45)
[2017-04-27] MEDS ORDERED: hydrOXYzine HCL 50 MG TAB PO PRN (14:00)
[2017-04-27] MEDS ORDERED: traZODone HCL 50 MG TAB PO PRN (14:00)
--- NOTE | 2017-04-27 15:32 | PD.CONS ---
HPI History of Present Illness This is a 57 year old M patient who is currently admitted to [facility] psych unit under a [place] Act for suicidal ideation with plan. GI has been consulted due to elevated liver enzymes and patients known history of hepatitis C. Per pt he has never been told in the past that he has a diagnosis of hepatitis. Labs from February 2016 positive for Hepatitis C antibody, A and B were negative. Pt denies ETOH, IV drug use, high risk sexual behaviors. He does report multiple sexual partners, however, states he always uses a barrier method of contraception for protection. Has had multiple blood transfusions over the years for multiple different injuries. Pt also reports taking 4-10 Tylenol a day for multiple years to control chronic leg pain. He is currently trying to get a pain management doctor, however, current use of marijuana that he was told he would have to discontinued. Denies any abdominal pain, nausea, vomiting, changes in BMs. Has never seen GI doctor, had EGD or colonoscopy. Labs on admission were AST-125 ALT-143. No abdomen imaging from this visit, CT abdomen and pelvis (Feb 22) shows no acute abnormalities or mention of liver irregularities. 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) Social History Denies ETOH Daily cigarette use Smokes marijuana Denies any other illicit drug use or ever being IV drug user (Luiza Alarcon) Review of Systems Gastrointestinal: DENIES: Abdominal pain, Black stools, Bloody stools, Constipation, Diarrhea, Nausea, Vomiting, Swelling of Abdomen, Heartburn, Hematemesis (Luiza Alarcon) GI Exam Vitals I&O Vital Signs Date Time Temp Pulse Resp B/P (MAP) Pulse Ox O2 Delivery O2 Flow Rate FiO2 04/27/17 08:00 97.5 83 16 104/73 (83) 98 04/26/17 18:17 97.3 96 18 147/70 (95) 95 I/O 04/26/17 04/26/17 04/26/17 04/27/17 04/27/17 1/22/18 07:00 15:00 23:00 07:00 15:00 23:00 Intake Total 360 ml 480 ml Balance 360 ml 480 ml Intake Oral 360 ml 480 ml Physical Examination HEENT: Normocephalic; atraumatic CHEST: CTA CARDIAC: RRR ABDOMEN: Soft, nondistended, nontender; bowel sounds active EXTREMITIES: R BKA SKIN: Normal; no rash; no jaundice. 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 (Luiza Alarcon) Assessment and Plan Plan Assessment: Elevated LFTs- Currently AST-127 ALT-157. History of Hepatitis C antibody- positive in February 2016, hepatitis A and B antibody negative at the time. Last imaging of abdomen in February of 2017- no irregularities of liver. Pt denies ETOH, IV drug use, being in correction. Denies high risk sexual behaviors, however, multiple partners, states always uses barrier method for protection. Multiple blood transfusions over the years. Also reports taking 4-10 tabs of Tylenol a day for years to control chronic leg pain. Wants to start seeing pain management, however, was told he has to stop smoking marijuana for them to begin treatment Plan: - Hepatitis panel - Hep C RNA and genotype - Liver work up to rule out other causes - US abdomen - Avoid hepatotoxic agents - Supportive care - Further recommendations to follow Pt has been seen and examined by myself and Dr. Maldonado and this note is written on his behalf (Luiza Alarcon) Physician Comments Seen and examined with DON, liver macdonald initiated. U/S liver ordered. Will follow. (Rosangela Maldonado MD) Luiza Alarcon Apr 27, 2017 15:32 Rosangela Maldonado MD Apr 27, 2017 16:41
--- NOTE | 2017-04-27 15:41 | HHI.PR ---
Subjective Remarks laying in bed he stated he is not aware of having hep B,C asked qs how he could he possibly get it Objective Vitals Vital Signs Date Time Temp Pulse Resp B/P (MAP) Pulse Ox O2 Delivery O2 Flow Rate FiO2 04/27/17 08:00 97.5 83 16 104/73 (83) 98 04/26/17 18:17 97.3 96 18 147/70 (95) 95 I/O 04/26/17 04/26/17 04/26/17 04/27/17 04/27/17 04/27/17 07:00 15:00 23:00 07:00 15:00 23:00 Intake Total 360 ml 480 ml Balance 360 ml 480 ml Intake Oral 360 ml 480 ml Result Diagram: 04/25/1791904/25/17919 Objective Remarks GENERAL: This is a well-nourished, well-developed patient, in no apparent distress. SKIN: No rashes, ecchymoses or lesions. Cool and dry. HEAD: Atraumatic. Normocephalic. No temporal or scalp tenderness. EYES: Pupils equal round and reactive. Extraocular motions intact. No scleral icterus. No injection or drainage. ENT: Nose without bleeding, purulent drainage or septal hematoma. Throat without erythema, tonsillar hypertrophy or exudate. Uvula midline. Airway patent. NECK: Trachea midline. No JVD or lymphadenopathy. Supple, nontender, no meningeal signs. CARDIOVASCULAR: Regular rate and rhythm without murmurs, gallops, or rubs. RESPIRATORY: Clear to auscultation. Breath sounds equal bilaterally. No wheezes , rales, or rhonchi. GASTROINTESTINAL: Abdomen soft, non-tender, nondistended. No hepato-splenomegaly , or palpable masses. No guarding. MUSCULOSKELETAL: Eright lower BKA stump clean and dry, left lower extremity with ,erythma looks slightly better NEUROLOGICAL: Awake and alert. Cranial nerves II through XII intact. Motor and sensory grossly within normal limits. Five out of 5 muscle strength in all muscle groups. Normal speech. A/P Assessment and Plan 57 years old male with multiple medical problem admitted to psychiatry units and hospitalist consulted to see patient regarding lower extremity pain, patient seems to have lower extremity erythema and no warmth, he was started on doxycycline ultrasound of the lower extremity negative for DVT, recommend moisturizing the skin in order to avoid skin break and infection. For pain management patient is on gabapentin which I agree with, he can be on tramadol as needed History of positive hepatitis hepatitis Cand B Increase transaminase Abdominal CT from 02/2017 was within normal limits, gallbladder ultrasound in 2015 revealed fatty liver will consult GI Continue monitoring Laura Whipple MD Apr 27, 2017 15:41
[2017-04-27 18:08] VITALS: BP 123/69; PULSE 100; RESP 16; TEMP 98.1; O2SAT 98
--- NOTE | 2017-04-27 18:59 | RADRPT ---
EXAM DATE/TIME: 04/27/2017 17:04 [facility] COMPARISON: No previous studies available for comparison. INDICATIONS : Hepatitis C. MEDICAL HISTORY : Hypercholesterolemia. Hypertension. Chronic obstructive pulmonary disease. Hepatitis C. Ulcer. Divert iculitis. Renal failure. Arthritis. Bipolar disorder. MRSA. SURGICAL HISTORY : Cauterized ulcer. Right femur surgery. Right below knee amputation. ENCOUNTER: Initial ACUITY: 1 day PAIN SCORE: 0/10 LOCATION: Bilateral upper quadrant MEASUREMENTS: LIVER: 20.1 cm length COMMON DUCT: 5 mm RIGHT KIDNEY: 10.8 x 5.2 x 4.6 cm SPLEEN: 9.7 cm length FINDINGS: Fatty liver enlarged to 20 cm. No gallstones. No biliary ductal dilatation. Right kidney unremarkable . No free fluid. CONCLUSION: 1. No acute findings. Fatty liver. No free fluid. Right kidney unremarkable. Darrel Villeda MD on April 27, 2017 at 18:54 Board Certified Radiologist. This report was verified electronically.
[2017-04-27 22:56] LABS: ALBUMIN 3.2 GM/DL (3.4-5.0); ALT (GPT) 184 U/L (12-78); AST (GOT) 162 U/L (15-37); DIRECT BILIRUBIN ADULT 0.2 MG/DL (0.0-0.2); IRON (FE) 99 MCG/DL (65-175)
[2017-04-27 23:00] LABS: % SATURATION IRON PROFILE 22.9 % (20-50); ALKALINE PHOSPHATASE 101 U/L (45-117); FERRITIN 223 NG/ML (26-388); INDIRECT BILIRUBIN 0.5 MG/DL (0.0-0.8); TOTAL BILIRUBIN ADULT 0.7 MG/DL (0.2-1.0); TOTAL IRON BINDING CAPACITY 433 MCG/DL (250-450)
[2017-04-28] MEDS: oxyCODONE/ACETAMINOPHEN 5 MG/325 MG TAB PO PRN ×4 (02:00→20:09)
[2017-04-28 05:47] VITALS: PULSE 83; RESP 16; TEMP 97.8; O2SAT 97
[2017-04-28 06:00] VITALS: BP 131/73
[2017-04-28] MEDS: DOXYCYCLINE HYCLATE 100 MG CAP PO SCH ×2 (08:29→20:08)
[2017-04-28] MEDS: GABAPENTIN 300 MG CAP PO SCH ×3 (08:29→17:00)
[2017-04-28] MEDS: CHOLECALCIFEROL (VIT D3) 1000 UNIT TAB PO SCH (08:29)
[2017-04-28] MEDS: LISINOPRIL 20 MG TAB PO SCH (08:29)
[2017-04-28] MEDS: HYDROCHLOROTHIAZIDE 25 MG TAB PO SCH (08:30)
[2017-04-28] MEDS: REMOVE OLD PATCH T-DERMAL SCH (08:30)
[2017-04-28] MEDS: PANTOPRAZOLE SOD 20 MG DELAYED RELEASE TAB PO SCH (08:30)
[2017-04-28] MEDS: NICOTINE 21 MG/24 HR PATCH T-DERMAL SCH (08:30)
[2017-04-28] MEDS: VENLAFAXINE HCL XR 37.5 MG CAP PO SCH (08:30)
[2017-04-28] MEDS: BACITRACIN TOP OINT 15 GM TUBE TOPICAL SCH ×3 (08:30→17:00)
--- NOTE | 2017-04-28 10:23 | HHI.PYPN ---
Subjective Chief Complaint: Depression, SI Remarks Patient seen and examined with nurse. Chart reviewed. Case discussed with nursing staff who reports the patient remains easily agitated, although he has not been physically aggressive, nor has he thrown items overnight. Case discussed in treatment team with counselor, occupational therapist and recreational therapist. Patient noted to be entitled by counselor and asking "what are you going to do for me?" On my examination today, patient continues to endorse depression with suicidal ideation if discharged. He denies any urge to hurt himself on the inpatient unit. Some manipulativeness noted. He is worried because he believes his disability has been cut off. Counselor is looking into this. Sleep is reportedly poor. Requesting additional medication for sleep. He does pay a complement to the efforts of the staff. Denies side effects from medications. No new physical complaints. Review of Systems Except as stated in HPI: all other systems reviewed are Neg Mental Status Examination Appearance: Disheveled Consciousness: Alert Orientation: x4 Motor Activity: Other (no abnormal motor movements noted) Speech: Unremarkable Language: Adequate Fund of Knowledge: Adequate Attention and Concentration: Adequate Memory: Unremarkable Mood: Other (dysphoric) Affect: Anxious, Other (restricted) Thought Process & Associations: Intact, Linear Thought Content: Appropriate Hallucination Type: None Delusion Type: None Suicidal Ideation: Yes Suicidal Plan: Yes (plans as previous.) Suicidal Intention: No (again denies any urge to hurt himself on the inpatient unit.) Homicidal Ideation: No Homicidal Plan: No Homicidal Intention: No Insight: Fair Judgment: Impulsive Results Labs Test 04/27/17 21:41 Iron Level 99 MCG/DL Total Iron Binding Capacity 433 MCG/DL Percent Iron Saturation 22.9 % Ferritin 223 NG/ML Total Bilirubin 0.7 MG/DL Direct Bilirubin 0.2 MG/DL Indirect Bilirubin 0.5 MG/DL Aspartate Amino Transf (AST/SGOT) 162 U/L Alanine Aminotransferase (ALT/SGPT) 184 U/L Alkaline Phosphatase 101 U/L Total Protein 8.0 GM/DL Albumin 3.2 GM/DL Labs reviewed. Iron studies unremarkable. Stable transaminitis. Vitals/IOs Vital Signs Date Time Temp Pulse Resp B/P (MAP) Pulse Ox O2 Delivery O2 Flow Rate FiO2 04/28/17 06:00 131/73 (92) 04/28/17 05:47 97.8 83 16 97 04/24/17 07:22 Room Air Assessment & Plan Problem List: (1) Adjustment disorder with depressed mood ICD Codes: F43.21 - Adjustment disorder with depressed mood Assessment & Plan Titrate Effexor XR to 75 mg daily for mood and as an adjuvant agent for neuropathic component of pain. Titrate trazodone to 100 mg at bedtime for sleep. Hospitalist and GI input noted and appreciated. Continue to monitor on the inpatient unit. Continue other medications and care as ordered. Justification for Cont. Inpt. Medication changes. Monitoring for impairment in safety. Risk for decompensation in less restrictive environment. Discharge Planning Possible placement if patient has payer source to support this. Case discussed with counselor. Request HC Surrog/Guard Advoc?: No Tc Colunga MD Apr 28, 2017 10:23
--- NOTE | 2017-04-28 11:27 | PD.TTN ---
Patient Problems 1. Discharge planning 2. Medication compliance 3. Knowledge deficit 4. Lack of coping skills Progress Toward Goals Provider Present: Dr. Jose Alfredo Colunga Provider Input: 04/28/2017 - Dr. Colunga reported that he has started the patient on Effexor in an effort to treat neuropathic pain and depression. Dr. Woodall requested this counselor find placement quickly. Psychiatric Counselors Present: DUNCAN Kurtz Psych Therapist Input: 04/28/2017 - Patient presented with angry, hostile, and entitled behavior. He demanded that this counselor get his social security income back. Counselor reported that I would contact [facility] regardnig his benefits. Group Spec/RT/OT/TABARES Present: CORIE Schultz Group Spec/RT/OT/TABARES Input: 04/28/2017 - Patient is unable to tolerate group activities at this time. Discharge Plan SMA Patient will be discharged to an [facility] if he is quickly accepted by a facility. If placement becomes problematic, the patient will be discharged homeless and provided with appropriate resources. Documentation Scribe: DUNCAN Kurtz Date Resolved: Apr 28, 2017 Hafsa Shine Apr 28, 2017 11:27
[2017-04-28 11:59] LABS: HEPATITIS A AB IGM NEGATIVE (NEGATIVE); HEPATITIS B CORE AB IGM NEGATIVE (NEGATIVE); HEPATITIS B SURFACE ANTIGEN NEGATIVE (NEGATIVE); HEPATITIS C AB IgG REACTIVE (NEGATIVE)
--- NOTE | 2017-04-28 15:53 | HHI.GIFU ---
Subjective Remarks Pt sitting up in bed. Denies any GI complaints at this time. (Luiza Alarcon) Objective Vitals I&O Vital Signs Date Time Temp Pulse Resp B/P (MAP) Pulse Ox O2 Delivery O2 Flow Rate FiO2 04/28/17 06:00 131/73 (92) 04/28/17 05:47 97.8 83 16 97 04/27/17 18:08 98.1 100 16 123/69 (87) 98 I/O 04/27/17 04/27/17 04/27/17 04/28/17 04/28/17 04/28/17 06:59 14:59 22:59 06:59 14:59 22:59 Intake Total 480 ml Balance 480 ml Intake Oral 480 ml Laboratory Laboratory Tests Test 04/27/17 21:41 04/28/17 13:55 Iron Level 99 Total Iron Binding Capacity 433 Percent Iron Saturation 22.9 Ferritin 223 Total Bilirubin 0.7 Direct Bilirubin 0.2 Indirect Bilirubin 0.5 Aspartate Amino Transf (AST/SGOT) 162 Alanine Aminotransferase (ALT/SGPT) 184 Alkaline Phosphatase 101 Total Protein 8.0 Albumin 3.2 Hepatitis A IgM Antibody NEGATIVE Hepatitis B Surface Antigen NEGATIVE Hepatitis B Core IgM Antibody NEGATIVE Hepatitis C Antibody REACTIVE Imaging Last Impressions Liver Ultrasound 04/27/17 0000 Signed Impressions: Service Date/Time: Thursday, April 27, 2017 17:04 - CONCLUSION: 1. No acute findings. Fatty liver. No free fluid. Right kidney unremarkable. Darrel Villeda MD Lower Extremity Ultrasound 04/25/17 0000 Signed Impressions: Service Date/Time: Tuesday, April 25, 2017 21:22 - CONCLUSION: No DVT left leg. Johnny Ni MD Physical Exam HEENT:Normocephalic; atraumatic CHEST: Even/unlabored CARDIAC: RRR ABDOMEN: Soft, nondistended, nontender; bowel sounds active EXTREMITIES: R BKA SKIN: Normal; no rash; no jaundice. 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 (Luiza Alarcon) Assessment and Plan Plan Assessment: Elevated LFTs- Currently AST-127 ALT-157. History of Hepatitis C antibody- positive in February 2016, hepatitis A and B antibody negative at the time. Last imaging of abdomen in February of 2017- no irregularities of liver. Pt denies ETOH, IV drug use, being in custodial. Denies high risk sexual behaviors, however, multiple partners, states always uses barrier method for protection. Multiple blood transfusions over the years. Also reports taking 4-10 tabs of Tylenol a day for years to control chronic leg pain. Wants to start seeing pain management, however, was told he has to stop smoking marijuana for them to begin treatment (04/28) liver US--> No acute abnormalities. Fatty liver. LFTs remain elevated. Liver work up pending. Hepatitis C genotype and RNA still pending. Plan: - Hepatitis panel - Hep C RNA and genotype - Liver work up to rule out other causes - Avoid hepatotoxic agents - Supportive care - Further recommendations to follow Pt has been seen and examined by myself and Dr. Maldonado and this note is written on his behalf (Luiza Alarcon) Physician Comments Liver macdonald in progress. U/S unremarkable. (Rosangela Maldonado MD) Luiza Alarcon Apr 28, 2017 15:53 Rosangela Maldonado MD Apr 28, 2017 17:32
[2017-04-28 18:13] VITALS: BP 132/76; PULSE 82; RESP 18; TEMP 98.2; O2SAT 98
[2017-04-28] MEDS ORDERED: traZODone HCL 100 MG TAB PO PRN (21:00)
--- NOTE | 2017-04-28 22:44 | HHI.PR ---
Subjective Remarks patient laying down in bed, he stated his leg is not better as far as the redness He is being worked up for his liver failure by the GI Afebrile no acute issues overnight Objective Vitals Vital Signs Date Time Temp Pulse Resp B/P (MAP) Pulse Ox O2 Delivery O2 Flow Rate FiO2 04/28/17 18:13 98.2 82 18 132/76 (94) 98 04/28/17 06:00 131/73 (92) 04/28/17 05:47 97.8 83 16 97 I/O 04/27/17 04/27/17 04/27/17 04/28/17 04/28/17 04/28/17 07:00 15:00 23:00 07:00 15:00 23:00 Intake Total 480 ml Balance 480 ml Intake Oral 480 ml Result Diagram: 04/25/1791904/25/17919 Objective Remarks GENERAL: This is a well-nourished, well-developed patient, in no apparent distress. SKIN: No rashes, ecchymoses or lesions. Cool and dry. HEAD: Atraumatic. Normocephalic. No temporal or scalp tenderness. EYES: Pupils equal round and reactive. Extraocular motions intact. No scleral icterus. No injection or drainage. ENT: Nose without bleeding, purulent drainage or septal hematoma. Throat without erythema, tonsillar hypertrophy or exudate. Uvula midline. Airway patent. NECK: Trachea midline. No JVD or lymphadenopathy. Supple, nontender, no meningeal signs. CARDIOVASCULAR: Regular rate and rhythm without murmurs, gallops, or rubs. RESPIRATORY: Clear to auscultation. Breath sounds equal bilaterally. No wheezes , rales, or rhonchi. GASTROINTESTINAL: Abdomen soft, non-tender, nondistended. No hepato-splenomegaly , or palpable masses. No guarding. MUSCULOSKELETAL: Eright lower BKA stump clean and dry, left lower extremity with ,erythma looks slightly better NEUROLOGICAL: Awake and alert. Cranial nerves II through XII intact. Motor and sensory grossly within normal limits. Five out of 5 muscle strength in all muscle groups. Normal speech. A/P Assessment and Plan 57 years old male with multiple medical problem admitted to psychiatry units and hospitalist consulted to see patient regarding lower extremity pain, patient seems to have lower extremity erythema and no warmth, looks improving on doxycycline ultrasound of the lower extremity negative for DVT, recommend moisturizing the skin in order to avoid skin break and infection. For pain management patient is on gabapentin which I agree with, he can be on tramadol as needed History of positive hepatitis hepatitis Cand B Increase transaminase Abdominal CT from 02/2017 was within normal limits, gallbladder ultrasound in 2015 revealed fatty liver appreciate GI consultation, liver ultrasound reviewed by me as mentioned above, awaiting RNA viral load and genotype, continue with GI for ongoing hepatic workup Laura Whipple MD Apr 28, 2017 22:44
[2017-04-29 05:36] VITALS: BP 102/50; PULSE 94; RESP 17; TEMP 97.8; O2SAT 98
[2017-04-29] MEDS: oxyCODONE/ACETAMINOPHEN 5 MG/325 MG TAB PO PRN ×2 (06:12→18:03)
[2017-04-29] MEDS: PANTOPRAZOLE SOD 20 MG DELAYED RELEASE TAB PO SCH (08:40)
[2017-04-29] MEDS: VENLAFAXINE HCL XR 75 MG CAP PO SCH (08:41)
[2017-04-29] MEDS: GABAPENTIN 300 MG CAP PO SCH ×3 (08:41→21:00)
[2017-04-29] MEDS: HYDROCHLOROTHIAZIDE 25 MG TAB PO SCH (08:41)
[2017-04-29] MEDS: DOXYCYCLINE HYCLATE 100 MG CAP PO SCH ×2 (08:41→21:00)
[2017-04-29] MEDS: LISINOPRIL 20 MG TAB PO SCH (08:42)
[2017-04-29] MEDS: CHOLECALCIFEROL (VIT D3) 1000 UNIT TAB PO SCH (09:00)
[2017-04-29] MEDS: REMOVE OLD PATCH T-DERMAL SCH (09:00)
[2017-04-29] MEDS: NICOTINE 21 MG/24 HR PATCH T-DERMAL SCH (09:00)
--- NOTE | 2017-04-29 12:11 | HHI.PYPN ---
Subjective Chief Complaint: Depression, SI Remarks Patient seen and examined with nurse. Chart reviewed. Case discussed with nursing staff. On my examination today, patient seems a little less intensely dysphoric. He remains tearful at times, though. He continues to ruminate on his homeless situation and on his genital size concerns, noting "the struggle is real." He is interacting somewhat more on the unit, and I have strongly encouraged webster participation in groups and unit activities. He continues to endorse suicidal ideation outside of the hospital setting, noting "I want to check out." He does not verbalize any urge to hurt himself on the inpatient unit. Sleep remains subjectively poor, requesting titration of trazodone. Also asking to have gabapentin dose spread out to morning, afternoon and night. Denies side effects from medications. No new physical complaints. Review of Systems Except as stated in HPI: all other systems reviewed are Neg Mental Status Examination Appearance: Disheveled Consciousness: Alert Orientation: x4 Motor Activity: Other (No motor abnormalities noted.) Speech: Unremarkable Language: Adequate Fund of Knowledge: Adequate Attention and Concentration: Adequate Memory: Unremarkable Mood: Other (dysphoric) Affect: Anxious, Other (somewhat more interactive.) Thought Process & Associations: Intact, Linear Thought Content: Appropriate Hallucination Type: None Delusion Type: None Suicidal Ideation: Yes Suicidal Plan: Yes (as before) Suicidal Intention: No (No urge to hurt self on unit) Homicidal Ideation: No Homicidal Plan: No Homicidal Intention: No Insight: Fair Judgment: Impulsive Results Labs Labs reviewed. Vitals/IOs Vital Signs Date Time Temp Pulse Resp B/P (MAP) Pulse Ox O2 Delivery O2 Flow Rate FiO2 04/29/17 05:36 97.8 94 17 102/50 (67) 98 Assessment & Plan Problem List: (1) Adjustment disorder with depressed mood ICD Codes: F43.21 - Adjustment disorder with depressed mood Assessment & Plan Received first 75mg dose of Effexor this morning. Continue this agent as ordered for now with plans for further titration to doses likely to be therapeutic in this patient, likely at least 150mg/day. Titrate trazodone to 150mg HS to help with sleep; as we increase the dose, this hopefully will begin to exert some antidepressant effect as well. Adjust gabapentin dosing per patient preference. Hospitalist and GI input noted and appreciated. Continue to monitor on inpatient unit. Continue other medications and care as ordered. Justification for Cont. Inpt. Monitoring for impairment in safety. Med changes. Risk for decompensation in less restrictive setting. Discharge Planning Pending psychiatric stabilization. Will discuss case with counselor. Request HC Surrog/Guard Advoc?: No Tc Colunga MD Apr 29, 2017 12:11
[2017-04-29] MEDS ORDERED: traZODone HCL 100 MG TAB PO PRN (13:00)
--- NOTE | 2017-04-29 13:56 | HHI.PR ---
Subjective Remarks This is a pleasant 57 y/o Male with increased Liver enzymes, workup in progress with GI specialist the patient is seen in his bedroom in the presence of nurse Miss Burden, no new issues, he has some covered lesion sin his hands, as per Protocol, recommended not to share Shaving and dental equipment keep covered any wound and do not donate blood. he may be discharged and will need to follow with GI specialist as outpatient, he will need to be followed as outpatient by GI specialist in order to be able to discuss management if indicated as outpatient, and the commitment to continue management, do not use illicit drugs. 04/29: seen in his bedroom in the presence of nurse Miss Burden, patient stable he will need to be followed by his PCP and GI specialist as outpatient to take decision about the right regimen for his hepatitis C if indicated. Objective Vital Signs Date Time Temp Pulse Resp B/P (MAP) Pulse Ox O2 Delivery O2 Flow Rate FiO2 04/29/17 05:36 97.8 94 17 102/50 (67) 98 04/28/17 18:13 98.2 82 18 132/76 (94) 98 Result Diagram: 04/25/1720 04/25/17919 Imaging Last Impressions Liver Ultrasound 04/27/17 0000 Signed Impressions: Service Date/Time: Thursday, April 27, 2017 17:04 - CONCLUSION: 1. No acute findings. Fatty liver. No free fluid. Right kidney unremarkable. Darrel Villeda MD Lower Extremity Ultrasound 04/25/17 0000 Signed Impressions: Service Date/Time: Tuesday, April 25, 2017 21:22 - CONCLUSION: No DVT left leg. Johnny Ni MD Procedures None Other Results Laboratory Tests Test 04/24/17 02:00 04/25/17 09:20 04/27/17 21:41 04/28/17 13:55 Urine Opiates Screen NEG Urine Barbiturates Screen NEG Urine Amphetamines Screen NEG Urine Benzodiazepines Screen NEG Urine Cocaine Screen NEG Urine Cannabinoids Screen NEG Ethyl Alcohol Level LESS THAN 3 MG/DL White Blood Count 5.3 TH/MM3 Red Blood Count 4.60 MIL/MM3 Hemoglobin 14.4 GM/DL Hematocrit 40.9 % Mean Corpuscular Volume 88.8 FL Mean Corpuscular Hemoglobin 31.3 PG Mean Corpuscular Hemoglobin Concent 35.3 % Red Cell Distribution Width 15.0 % Platelet Count 176 TH/MM3 Mean Platelet Volume 8.1 FL Neutrophils (%) (Auto) 47.3 % Lymphocytes (%) (Auto) 41.5 % Monocytes (%) (Auto) 7.3 % Eosinophils (%) (Auto) 3.3 % Basophils (%) (Auto) 0.6 % Neutrophils # (Auto) 2.5 TH/MM3 Lymphocytes # (Auto) 2.2 TH/MM3 Monocytes # (Auto) 0.4 TH/MM3 Eosinophils # (Auto) 0.2 TH/MM3 Basophils # (Auto) 0.0 TH/MM3 CBC Comment DIFF FINAL Differential Comment Blood Urea Nitrogen 12 MG/DL Creatinine 0.97 MG/DL Random Glucose 96 MG/DL Total Protein 7.1 GM/DL 8.0 GM/DL Albumin 2.8 GM/DL 3.2 GM/DL Calcium Level 8.8 MG/DL Alkaline Phosphatase 109 U/L 101 U/L Aspartate Amino Transf (AST/SGOT) 125 U/L 162 U/L Alanine Aminotransferase (ALT/SGPT) 143 U/L 184 U/L Total Bilirubin 0.7 MG/DL 0.7 MG/DL Sodium Level 135 MEQ/L Potassium Level 3.7 MEQ/L Chloride Level 101 MEQ/L Carbon Dioxide Level 24.5 MEQ/L Anion Gap 10 MEQ/L Estimat Glomerular Filtration Rate 80 ML/MIN Hemoglobin A1c 5.1 % Triglycerides Level 167 MG/DL Cholesterol Level 102 MG/DL LDL Cholesterol 43 MG/DL HDL Cholesterol 25.7 MG/DL Cholesterol/HDL Ratio 3.96 RATIO Vitamin B12 Level 337 PG/ML 25-Hydroxy Vitamin D Total 19.9 ng/ML Thyroid Stimulating Hormone 3rd Gen 1.920 uIU/ML Iron Level 99 MCG/DL Total Iron Binding Capacity 433 MCG/DL Percent Iron Saturation 22.9 % Ferritin 223 NG/ML Direct Bilirubin 0.2 MG/DL Indirect Bilirubin 0.5 MG/DL Hepatitis A IgM Antibody NEGATIVE Hepatitis B Surface Antigen NEGATIVE Hepatitis B Core IgM Antibody NEGATIVE Hepatitis C Antibody REACTIVE Objective Remarks GENERAL: Obesity SKIN: left leg with trophic changes, Right leg with BKA. HEAD: Atraumatic. Normocephalic. No temporal or scalp tenderness. NECK: Trachea midline. No JVD or lymphadenopathy. Supple, nontender, no meningeal signs. CARDIOVASCULAR: Regular rate and rhythm without murmurs, gallops, or rubs. RESPIRATORY: Clear to auscultation. Breath sounds equal bilaterally. No wheezes , rales, or rhonchi. MUSCULOSKELETAL: Eright lower BKA stump clean and dry, left lower extremity trophic changes. NEUROLOGICAL: Awake and alert. No focal deficits. Medications and IVs Current Medications Medications (Trade) Dose Ordered Sig/Rae Route Start Time Stop Time Status Last Admin (Benadryl) 50 mg Q6H PRN PO 04/24/17 11:00 04/26/17 21:18 (Benadryl Inj) 50 mg Q6H PRN IM 04/24/17 11:00 (Tylenol) 650 mg Q4H PRN PO 04/24/17 11:00 04/26/17 01:27 (Milk Of Magnesia Liq) 30 ml DAILY PRN PO 04/24/17 11:00 (Mag-Al Plus Susp Liq) 30 ml Q6H PRN PO 04/24/17 11:00 (Norvasc) 10 mg DAILY PO 04/25/17 09:00 04/29/17 08:42 (Baciguent Oint) 1 applic TID TOPICAL 04/24/17 13:00 04/28/17 12:26 (Vibramycin) 100 mg BID PO 04/24/17 21:00 04/29/17 08:41 (Hydrodiuril) 25 mg DAILY PO 04/25/17 09:00 04/29/17 08:41 (Percocet 5-325 Mg) 1 tab Q4H PRN PO 04/24/17 11:00 04/29/17 06:12 (Protonix) 20 mg DAILY PO 04/25/17 09:00 04/29/17 08:40 (Prinivil) 40 mg DAILY PO 04/25/17 09:00 04/29/17 08:42 (Habitrol 21 Mg Patch.24 Hr) 1 patch DAILY T-DERMAL 04/24/17 15:30 04/29/17 09:00 Miscellaneous Information 1 DAILY T-DERMAL 04/25/17 09:00 04/29/17 09:00 (Catapres) 0.1 mg Q8H PRN PO 04/24/17 18:30 04/25/17 05:33 (Vitamin D3) 1,000 units DAILY PO 04/28/17 09:00 04/29/17 09:00 (Atarax) 50 mg Q6H PRN PO 04/27/17 14:00 04/27/17 17:59 (Effexor Xr) 75 mg DAILY PO 04/29/17 09:00 04/29/17 08:41 (Neurontin) 1,200 mg DAILY@0900,1500,2100 PO 04/29/17 15:00 (Desyrel) 150 mg HS PRN PO 04/29/17 13:00 A/P Assessment and Plan 57 years old male with multiple medical problem admitted to psychiatry units and hospitalist consulted to see patient regarding lower extremity pain, patient seems to have lower extremity erythema and no warmth, looks improving on doxycycline ultrasound of the lower extremity negative for DVT, recommend moisturizing the skin in order to avoid skin break and infection. Stable Left Venous Stasis, on the left leg. asked not to eat with salt he states forget about it and then keep left leg elevated to avoid major complications. History of positive hepatitis hepatitis Cand B Increase transaminase Abdominal CT from 02/2017 was within normal limits, gallbladder ultrasound in 2016 revealed fatty liver appreciate GI consultation, liver ultrasound reviewed by me as mentioned above, awaiting RNA viral load and genotype, continue with GI for ongoing hepatic workup follow GI and PCP as outpatient. Okay to discharge from Medicine standpoint. sign off the case. Discharge Planning hospitalist clear for discharge. Ricki Dawn MD Apr 29, 2017 13:56
[2017-04-29 14:27] LABS: SMOOTH MUSCLE TOTAL AUTOABS Negative (Negative)
[2017-04-29 16:30] LABS: ANA SCREEN NEG (NEG)
[2017-04-29 18:00] VITALS: BP 129/79; PULSE 98; RESP 20; TEMP 98.6; O2SAT 98
[2017-04-29] MEDS: BACITRACIN TOP OINT 15 GM TUBE TOPICAL SCH (18:00)
[2017-04-29 20:29] LABS: ALPHA-1-ANTITRYPSIN 160 mg/dL (100 - 190)
[2017-04-30] MEDS: oxyCODONE/ACETAMINOPHEN 5 MG/325 MG TAB PO PRN ×2 (04:53→17:40)
[2017-04-30 05:22] VITALS: BP 116/61; PULSE 95; RESP 16; TEMP 97.8; O2SAT 97
[2017-04-30] MEDS: DOXYCYCLINE HYCLATE 100 MG CAP PO SCH ×2 (08:40→21:12)
[2017-04-30] MEDS: HYDROCHLOROTHIAZIDE 25 MG TAB PO SCH (08:40)
[2017-04-30] MEDS: CHOLECALCIFEROL (VIT D3) 1000 UNIT TAB PO SCH (08:41)
[2017-04-30] MEDS: PANTOPRAZOLE SOD 20 MG DELAYED RELEASE TAB PO SCH (08:42)
[2017-04-30] MEDS: VENLAFAXINE HCL XR 75 MG CAP PO SCH (08:42)
[2017-04-30] MEDS: LISINOPRIL 20 MG TAB PO SCH (09:00)
[2017-04-30] MEDS: NICOTINE 21 MG/24 HR PATCH T-DERMAL SCH (09:00)
[2017-04-30] MEDS: GABAPENTIN 300 MG CAP PO SCH ×3 (09:00→21:13)
[2017-04-30] MEDS: BACITRACIN TOP OINT 15 GM TUBE TOPICAL SCH ×2 (09:00→13:00)
[2017-04-30] MEDS: REMOVE OLD PATCH T-DERMAL SCH (09:33)
--- NOTE | 2017-04-30 11:56 | HHI.PYPN ---
Subjective Chief Complaint: Depression, SI Remarks Patient seen and examined with nurse. Chart reviewed. Case discussed with nursing staff reports the patient is overall fairly pleasant although somewhat irritable if he does not get his way. On my exam, patient is somewhat faultfinding but cooperative with exam. His mood is significantly improved, and he denies suicidal ideation today. He says that he has "got my head in a positive place." Future oriented. Sleep reportedly improved. He is up and about more on the unit. Hopeful for discharge tomorrow. Denies side effects from medications and is agreeable to titration of Effexor. No new physical complaints. Review of Systems Except as stated in HPI: all other systems reviewed are Neg Mental Status Examination Appearance: Other (Grooming improved.) Consciousness: Alert Orientation: x4 Motor Activity: Other (no abnormal motor movements noted) Speech: Unremarkable Language: Adequate Fund of Knowledge: Adequate Attention and Concentration: Adequate Memory: Unremarkable Mood: Appropriate (improved versus admission) Affect: Appropriate Thought Process & Associations: Intact, Logical, Goal directed, Linear Thought Content: Appropriate Hallucination Type: None Delusion Type: None Suicidal Ideation: No Suicidal Plan: No Suicidal Intention: No Homicidal Ideation: No Homicidal Plan: No Homicidal Intention: No Insight: Fair Judgment: Adequate (fair) Results Labs labs reviewed. Vitals/IOs Vital Signs Date Time Temp Pulse Resp B/P (MAP) Pulse Ox O2 Delivery O2 Flow Rate FiO2 04/30/17 05:22 97.8 95 16 116/61 (79) 97 Intake and Output 04/30/17 04/30/17 05/01/17 08:00 16:00 00:00 Intake Total 120 ml Balance 120 ml Assessment & Plan Problem List: (1) Adjustment disorder with depressed mood ICD Codes: F43.21 - Adjustment disorder with depressed mood Assessment & Plan Titrate Effexor to 150 mg daily for mood and also to try to help with neuropathic component of pain. Legal Receptionist input noted and appreciated. Continue other medications and care as ordered. Justification for Cont. Inpt. Medication changes. Discharge Planning Possible discharge tomorrow. Case discussed with counselor. Request HC Surrog/Guard Advoc?: No Tc Colunga MD Apr 30, 2017 11:56
[2017-04-30] MEDS ORDERED: VENLAFAXINE HCL XR 75 MG CAP PO ONE (12:15)
--- NOTE | 2017-04-30 16:31 | HHI.GIFU ---
Subjective Remarks Denies any symptoms of nausea vomiting diarrhea or constipation Abdomen large but denies any abdominal pain or bloating States he got a tattoo 1 year ago and feels that may have caused his liver enzymes to elevate Objective Vitals I&O Vital Signs Date Time Temp Pulse Resp B/P (MAP) Pulse Ox O2 Delivery O2 Flow Rate FiO2 04/30/17 05:22 97.8 95 16 116/61 (79) 97 04/29/17 18:00 98.6 98 20 129/79 (96) 98 I/O 04/29/17 04/29/17 04/29/17 04/30/17 04/30/17 04/30/17 07:00 15:00 23:00 07:00 15:00 23:00 Intake Total 240 ml Balance 240 ml Intake Oral 240 ml Imaging Last Impressions Liver Ultrasound 04/27/17 0000 Signed Impressions: Service Date/Time: Thursday, April 27, 2017 17:04 - CONCLUSION: 1. No acute findings. Fatty liver. No free fluid. Right kidney unremarkable. Darrel Villeda MD Lower Extremity Ultrasound 04/25/17 0000 Signed Impressions: Service Date/Time: Tuesday, April 25, 2017 21:22 - CONCLUSION: No DVT left leg. Johnny Ni MD Physical Exam HEENT:Normocephalic; atraumatic CHEST: Even/unlabored CARDIAC: RRR ABDOMEN: Soft, nondistended, nontender; bowel sounds active EXTREMITIES: R BKA SKIN: Normal; no rash; no jaundice. ASSISTANT PROFESSOR OF COMMUNICATION: No focal deficits; alert and oriented times three. Assessment and Plan Plan Assessment: Current history Elevated LFTs- Currently AST-127 ALT-157. History of Hepatitis C antibody- positive in February 2016, hepatitis A and B antibody negative at the time. Last imaging of abdomen in February of 2017- no irregularities of liver. Pt denies ETOH, IV drug use, being in [facility]. Denies high risk sexual behaviors, however, multiple partners, states always uses barrier method for protection. Multiple blood transfusions over the years. Also reports taking 4-10 tabs of Tylenol a day for years to control chronic leg pain. Wants to start seeing pain management, however, was told he has to stop smoking marijuana for them to begin treatment (04/28) liver US--> No acute abnormalities. Fatty liver. LFTs remain elevated. Liver work up pending. Hepatitis C genotype and RNA still pending. Patient denies any symptoms on 04/30/17 of nausea vomiting diarrhea constipation bloating or abdominal pain. IgA 365 Anti-smooth muscle lab negative results, other labs pending, hepatitis C reactive. Patient states tattoo done 1 year ago April 2016. Plan: - Hep C antibody reactive, genotype still pending - Liver work up to rule out other causes - Avoid hepatotoxic agents - Supportive care - Patient states discharge pending tomorrow. Instructed to patient to make appointment in the next 1-2 weeks for follow-up, fatty liver disease elevated LFTs, hepatitis C antibody positive Pt has been seen and examined by myself and Dr. Osborn, and this note is written on his behalf Inge Solis Apr 30, 2017 16:31
[2017-04-30 17:51] LABS: CERULOPLASMIN 33 mg/dL (18-36)
[2017-04-30 18:32] VITALS: BP 103/57; PULSE 101; RESP 18; TEMP 97.9; O2SAT 96
[2017-05-01 03:49] LABS: MITOCHONDRIAL ABS 67.4 U (<=20.0)
[2017-05-01 06:06] VITALS: BP 110/70; PULSE 83; RESP 18; TEMP 97.9; O2SAT 98
[2017-05-01 07:52] LABS: HCV RNA PCR IU/ML 12400000 IU/mL (0-14)
[2017-05-01] MEDS: DOXYCYCLINE HYCLATE 100 MG CAP PO SCH (08:55)
[2017-05-01] MEDS: CHOLECALCIFEROL (VIT D3) 1000 UNIT TAB PO SCH (08:55)
[2017-05-01] MEDS: HYDROCHLOROTHIAZIDE 25 MG TAB PO SCH (08:56)
[2017-05-01] MEDS: PANTOPRAZOLE SOD 20 MG DELAYED RELEASE TAB PO SCH (08:57)
[2017-05-01] MEDS: LISINOPRIL 20 MG TAB PO SCH (08:57)
[2017-05-01] MEDS: oxyCODONE/ACETAMINOPHEN 5 MG/325 MG TAB PO PRN (08:59)
[2017-05-01] MEDS: REMOVE OLD PATCH T-DERMAL SCH (09:00)
[2017-05-01] MEDS ORDERED: VENLAFAXINE HCL XR 75 MG CAP PO SCH (09:00)
[2017-05-01] MEDS: GABAPENTIN 300 MG CAP PO SCH (09:08)
[2017-05-01] MEDS: NICOTINE 21 MG/24 HR PATCH T-DERMAL SCH (09:11)
[2017-05-01] MEDS ORDERED: OXYC1TAB63 PO (11:02)
[2017-05-01] MEDS ORDERED: HYDR25TA5 PO (11:02)
[2017-05-01] MEDS ORDERED: AMLO10 PO (11:02)
[2017-05-01] MEDS ORDERED: VENL75XR PO (11:02)
[2017-05-01] MEDS ORDERED: LISI40TA PO (11:02)
[2017-05-01] MEDS ORDERED: PANT20 PO (11:02)
[2017-05-01] MEDS ORDERED: GABA600T PO (11:02)
[2017-05-01] MEDS ORDERED: DOXY100C PO (11:02)
[2017-05-01] MEDS ORDERED: TRAZ50TA12 PO (11:02)
[2017-05-01] MEDS ORDERED: CHOL1000 PO (11:02)
[2017-05-01] MEDS ORDERED: BACI500O9 TOPICAL (11:02)
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
--- NOTE | 2017-05-01 13:31 | PD.TTN ---
Patient Problems 1. Discharge planning 2. Medication compliance 3. Knowledge deficit 4. Lack of coping skills Progress Toward Goals Provider Present: Dr. Jose Alfredo Colunga Provider Input: 05/01anticipated discharge today 04/28/2017 - Dr. Colunga reported that he has started the patient on Effexor in an effort to treat neuropathic pain and depression. Dr. Woodall requested this counselor find placement quickly. Psychiatric Counselors Present: DUNCAN Kurtz Psych Therapist Input: 05/01 will be assited to get to the homeless [facility] [place] and local community resources 04/28/2017 - Patient presented with angry, hostile, and entitled behavior. He demanded that this counselor get his social security income back. Counselor reported that I would contact [facility] regardnig his benefits. Group Spec/RT/OT/TABARES Present: CORIE Schultz Group Spec/RT/OT/TABARES Input: 04/28/2017 - Patient is unable to tolerate group activities at this time. Discharge Plan SMA Patient will be discharged to an [facility] if he is quickly accepted by a facility. If placement becomes problematic, the patient will be discharged homeless and provided with appropriate resources. Documentation Scribe: DUNCAN Kurtz Date Resolved: Apr 28, 2017 Elaina Shaw LCSW May 01, 2017 13:31
[2017-05-01 19:51] LABS: ENDOMYSIAL AB SCREEN ND (NEGATIVE); ENDOMYSIAL AB TITER ND (<1:5)
== END 2017-05-01 14:00 | disposition home or self-care (01) | DRG 885 ==
LOC: NEPD 00:24 → NEDA 10:51 → H260 13:20
PROVIDERS: ADMIT Psychiatry & Neurology Psychiatry; ATTEND Psychiatry & Neurology Psychiatry
DX: F32.2 Major depressive disorder, single episode, severe without psychotic features (principal); R45.851 Suicidal ideations; K76.0 Fatty (change of) liver, not elsewhere classified; Z68.42 Body mass index [BMI] 45.0-49.9, adult; F43.21 Adjustment disorder with depressed mood; G62.9 Polyneuropathy, unspecified; I10 Essential (primary) hypertension; F43.10 Post-traumatic stress disorder, unspecified; J44.9 Chronic obstructive pulmonary disease, unspecified; E78.5 Hyperlipidemia, unspecified; G89.29 Other chronic pain; E66.9 Obesity, unspecified; I87.8 Other specified disorders of veins; L08.9 Local infection of the skin and subcutaneous tissue, unspecified; B19.20 Unspecified viral hepatitis C without hepatic coma; B95.62 Methicillin resistant Staphylococcus aureus infection as the cause of diseases classified elsewhere; M19.90 Unspecified osteoarthritis, unspecified site; F12.90 Cannabis use, unspecified, uncomplicated; F17.290 Nicotine dependence, other tobacco product, uncomplicated; Z59.0 Homelessness; Z86.14 Personal history of Methicillin resistant Staphylococcus aureus infection; Z89.511 Acquired absence of right leg below knee
CPT/HCPCS: 76705; 80053; 80061; 80074; 80076; 80307; 82103; 82306; 82390; 82607; 82728; 82784; 83036; 83516; 83520; 83540; 83550; 84443; 85025; 86038; 86255; 87522; 87902; 93005; 93971; Q0163

== ENCOUNTER 2017-05-06 00:15 | Emergency (ER) | payer OTHER ==
[~2017-05-06] VITALS: Ht 177.8 cm; Wt 111.0 kg
[~2017-05-06 00:15] MED LIST changes: -BACT800T5 PO; +CHOL1000 PO; +TRAZ50TA12 PO; +VENL75XR PO
[2017-05-06 00:19] VITALS: BP 182/100; PULSE 102; RESP 16; TEMP 96.7; O2SAT 100
--- NOTE | 2017-05-06 00:34 | PD ---
HPI Chief Complaint: Psychiatric Symptoms Time Seen by Provider: 00:30 Travel History International Travel<30 days: No Contact w/Intl Traveler<30days: No Traveled to known affect area: No History of Present Illness HPI 57-year-old male with history of CAD, hypertension, COPD, bipolar disorder, presents to emergency department for psychiatric evaluation. Patient was discharged in return 26. He is started on Effexor at that time. Patient states that he has had an episode of hallucinations since starting the medication. States that he was talking with his mother. This caused him to become concerned that he is experiencing adverse effects from the medication. He denies any suicidal homicidal ideations but feels that his medication needs to be adjusted. He has no other symptoms to report at this time. PFSH Past Medical History Hx Anticoagulant Therapy: No Arthritis: Yes Asthma: No Blood Disorders: No Bipolar Disorder: Yes Anxiety: Yes Depression: Yes Heart Rhythm Problems: No Cancer: No Cardiac Catheterization: No Cardiovascular Problems: Yes (HTN) High Cholesterol: Yes Chemotherapy: No Chest Pain: No Congestive Heart Failure: No COPD: Yes Cerebrovascular Accident: No Diabetes: No Diminished Hearing: No Diverticulitis: Yes Endocrine: No Gastrointestinal Disorders: Yes (DIVERTICULITIS ) GERD: No Genitourinary: No Headaches: No Hiatal Hernia: No Heparin Induced Thrombocytopen: No Hypertension: Yes Immune Disorder: No Implanted Vascular Access Dvce: Yes Musculoskeletal: Yes Neurologic: No Psychiatric: Yes (PTSD ) Reproductive: No Respiratory: Yes Integumentary: Yes (LEFT LEG CELLULITIS) Immunizations Current: Yes Migraines: No Radiation Therapy: No Renal Failure: Yes Seizures: No Sleep Apnea: No Ulcer: Yes Tetanus Vaccination: < 5 Years Influenza Vaccination: Yes Past Surgical History Abdominal Surgery: Yes (2004 CAUTERIZED ULCER) AICD: No Arteriovenous Shunt: No Cardiac Surgery: No Coronary Artery Bypass Graft: No Ear Surgery: No Endocrine Surgery: No Eye Surgery: No Genitourinary Surgery: No Gynecologic Surgery: No Hysterectomy: No Insulin Pump: No Joint Replacement: Yes (R FEMUR) Neurologic Surgery: No Oral Surgery: No Pacemaker: No Thoracic Surgery: No Other Surgery: Yes ("bleeding ulcers") Family History Family Myocardial Infarction: Yes (GRANDFATEHR PASSED FORM [place]) Social History Alcohol Use: No Tobacco Use: Yes (3 cigars PER DAY) Substance Use: No Allergies-Medications (Allergen,Severity, Reaction): Coded Allergies: *MDRO Multi-Drug Resistant Organism (Verified Adverse Reaction, Unknown, ) 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 Doxycycline Hyclate 100 Mg Cap 100 Mg PO BID 7 Days Protonix (Pantoprazole Sodium) 20 Mg Tab 20 Mg PO DAILY 7 Days Hydrochlorothiazide 25 Mg Tab 25 Mg PO DAILY 7 Days Oxycodone-Acetaminophen 5-325 (Oxycodone HCl/Acetaminophen) 5 Mg-325 Mg Tablet 1 Tab PO Q6H PRN Norvasc (Amlodipine Besylate) 10 Mg Tab 10 Mg PO DAILY 7 Days Lisinopril 40 Mg Tab 40 Mg PO DAILY 7 Days Gabapentin 600 Mg Tab 1,200 Mg PO TID 7 Days Wheelchair Elevated Leg (Device) 1 Mis Mis Ea .ROUTE DIRECTED [prosthetic right leg] Review of Systems Except as stated in HPI: all other systems reviewed are Neg Physical Exam Narrative GENERAL: Well-nourished male patient, in no acute distress. SKIN: Focused skin assessment warm/dry. HEAD: Atraumatic. Normocephalic. EYES: Pupils equal and round. No scleral icterus. No injection or drainage. ENT: No nasal bleeding or discharge. Mucous membranes pink and moist. NECK: Trachea midline. No JVD. CARDIOVASCULAR: Elevated rate and rhythm. No murmur appreciated. RESPIRATORY: No accessory muscle use. Clear to auscultation. Breath sounds equal bilaterally. GASTROINTESTINAL: Abdomen soft, non-tender, nondistended. Hepatic and splenic margins not palpable. MUSCULOSKELETAL: No obvious deformities. No clubbing. No cyanosis. No edema. NEUROLOGICAL: Awake and alert. No obvious cranial nerve deficits. Motor grossly within normal limits. Normal speech. Data Data Last Documented VS Vital Signs Date Time Temp Pulse Resp B/P (MAP) Pulse Ox O2 Delivery O2 Flow Rate FiO2 05/06/17 00:19 96.7 102 16 182/100 (393) 521 Room Air Orders Orders Psych Screen (05/06/17 00:31) MDM Medical Decision Making Medical Screen Exam Complete: Yes Emergency Medical Condition: Yes Medical Record Reviewed: Yes Differential Diagnosis Mood disorder versus personality disorder versus adjustment reaction disorder versus medication side effect versus adverse reaction Narrative Course 57-year-old male presents to emergency department for evaluation. Patient appears without distress. His vital signs are stable. Lab work will not be repeated, however do feel he would benefit from psychiatric screen in speaking with psychiatry about alternative medication options. He is medically cleared at this time. Diagnosis Primary Impression: Adjustment disorder with depressed mood Additional Impression: Adverse effects of medication Qualified Codes: T88.7XXA - Unspecified adverse effect of drug or medicament, initial encounter Condition: Stable ConradSalina shanks DON May 06, 2017 00:34
== END 2017-05-06 07:40 | disposition left against medical advice (07) ==
LOC: NEPD 00:15
DX: F43.21 Adjustment disorder with depressed mood (principal); F31.9 Bipolar disorder, unspecified; I10 Essential (primary) hypertension; T43.215A Adverse effect of selective serotonin and norepinephrine reuptake inhibitors, initial encounter; F17.290 Nicotine dependence, other tobacco product, uncomplicated
CPT/HCPCS: 99283

== ENCOUNTER 2017-05-06 23:46 | Emergency (ER) | payer OTHER ==
[~2017-05-06] VITALS: Ht 177.8 cm; Wt 107.0 kg
[2017-05-06 23:48] VITALS: BP 125/92; PULSE 112; RESP 20; TEMP 98.7; O2SAT 97
--- NOTE | 2017-05-07 00:16 | PD ---
HPI Chief Complaint: Psychiatric Symptoms Time Seen by Provider: 00:15 Travel History International Travel<30 days: No Contact w/Intl Traveler<30days: No Traveled to known affect area: No History of Present Illness HPI 57-year-old male presents to emergency department again for psychiatric evaluation. Patient was seen and evaluated yesterday, left this morning prior to seeing psychiatry. Patient states that he has been continually having hallucinations of seeing his mother since starting his newest medication. History of depression but denies suicidal homicidal ideations. He has no acute medical needs at this [facility] Past Medical History Hx Anticoagulant Therapy: No Arthritis: Yes Asthma: No Blood Disorders: No Bipolar Disorder: Yes Anxiety: Yes Depression: Yes Heart Rhythm Problems: No Cancer: No Cardiac Catheterization: No Cardiovascular Problems: Yes (HTN) High Cholesterol: Yes Chemotherapy: No Chest Pain: No Congestive Heart Failure: No COPD: Yes Cerebrovascular Accident: No Diabetes: No Diminished Hearing: No Diverticulitis: Yes Endocrine: No Gastrointestinal Disorders: Yes (DIVERTICULITIS ) GERD: No Genitourinary: No Headaches: No Hiatal Hernia: No Heparin Induced Thrombocytopen: No Hypertension: Yes Immune Disorder: No Implanted Vascular Access Dvce: Yes Musculoskeletal: Yes Neurologic: No Psychiatric: Yes (PTSD ) Reproductive: No Respiratory: Yes Integumentary: Yes (LEFT LEG CELLULITIS) Immunizations Current: Yes Migraines: No Radiation Therapy: No Renal Failure: Yes Seizures: No Sleep Apnea: No Ulcer: Yes Tetanus Vaccination: < 5 Years Influenza Vaccination: Yes Past Surgical History Abdominal Surgery: Yes (2003 CAUTERIZED ULCER) AICD: No Arteriovenous Shunt: No Cardiac Surgery: No Coronary Artery Bypass Graft: No Ear Surgery: No Endocrine Surgery: No Eye Surgery: No Genitourinary Surgery: No Gynecologic Surgery: No Hysterectomy: No Insulin Pump: No Joint Replacement: Yes (R FEMUR) Neurologic Surgery: No Oral Surgery: No Pacemaker: No Thoracic Surgery: No Other Surgery: Yes ("bleeding ulcers") Family History Family Myocardial Infarction: Yes (GRANDFATEHR PASSED FORM [place]) Social History Alcohol Use: No Tobacco Use: Yes (3 cigars PER DAY) Substance Use: No Allergies-Medications (Allergen,Severity, Reaction): Coded Allergies: No Known Allergies (Unverified , 05/07/17) Reported Meds & Prescriptions Reported Meds & Active Scripts Active Gnp Vitamin D3 Extra Stre (Cholecalciferol) 1,000 Unit Tab 1,000 Units PO DAILY 7 Days Effexor XR 24 HR (Venlafaxine HCl) 75 Mg Cap 150 Mg PO DAILY 7 Days Trazodone (Trazodone HCl) 50 Mg Tab 150 Mg PO HS PRN 7 Days Bacitracin Topical 500 Unit/Gm Oint 1 Applic TOPICAL TID Apply thin layer to affected leg. Doxycycline Hyclate 100 Mg Cap 100 Mg PO BID 7 Days Protonix (Pantoprazole Sodium) 20 Mg Tab 20 Mg PO DAILY 7 Days Hydrochlorothiazide 25 Mg Tab 25 Mg PO DAILY 7 Days Oxycodone-Acetaminophen 5-325 (Oxycodone HCl/Acetaminophen) 5 Mg-325 Mg Tablet 1 Tab PO Q6H PRN Norvasc (Amlodipine Besylate) 10 Mg Tab 10 Mg PO DAILY 7 Days Lisinopril 40 Mg Tab 40 Mg PO DAILY 7 Days Gabapentin 600 Mg Tab 1,200 Mg PO TID 7 Days Wheelchair Elevated Leg (Device) 1 Mis Mis Ea .ROUTE DIRECTED [prosthetic right leg] Review of Systems Except as stated in HPI: all other systems reviewed are Neg Physical Exam Narrative GENERAL: Well-nourished male patient in no acute distress SKIN: Focused skin assessment warm/dry. HEAD: Atraumatic. Normocephalic. EYES: Pupils equal and round. No scleral icterus. No injection or drainage. ENT: No nasal bleeding or discharge. Mucous membranes pink and moist. NECK: Trachea midline. No JVD. CARDIOVASCULAR: Regular rate and rhythm. No murmur appreciated. RESPIRATORY: No accessory muscle use. Clear to auscultation. Breath sounds equal bilaterally. GASTROINTESTINAL: Abdomen soft, non-tender, nondistended. Hepatic and splenic margins not palpable. MUSCULOSKELETAL: No obvious deformities. No clubbing. No cyanosis. No edema. Right BKA NEUROLOGICAL: Awake and alert. No obvious cranial nerve deficits. Motor grossly within normal limits. Normal speech. Data Data Last Documented VS Vital Signs Date Time Temp Pulse Resp B/P (MAP) Pulse Ox O2 Delivery O2 Flow Rate FiO2 05/06/17 23:48 98.7 112 20 125/92 (103) 97 Room Air Orders Orders Psych Screen (05/07/17 00:18) Ed Discharge Order (05/07/17 06:36) MDM Medical Decision Making Medical Screen Exam Complete: Yes Emergency Medical Condition: Yes Medical Record Reviewed: Yes Differential Diagnosis Mood disorder versus personality disorder versus adjustment reaction disorder Narrative Course 57-year-old male presents to department for psychiatric evaluation and requesting medication adjustment. Patient appears without distress. Not actively suicidal homicidal. He does report hallucinations, auditory and of his mother. Lab work repeated at this time. Patient is medically cleared to undergo psychiatric screening for further evaluation and disposition. Mental health screening discussed with the patient. Psychiatric screen ordered. 0636 it is now morning and the patient has had a nights rest. He has decided that he no longer needs to wait for psychiatry and would like to leave. I highly suspect malingering. Patient will be discharged at this time. Diagnosis Primary Impression: Auditory hallucinations Additional Impression: Malingering Referrals: [facility] (Out patient) Patient Instructions: General Instructions Additional Instructions: Follow-up with [facility] for further medication management Return immediately with any acute worsening symptoms Med/Other Pt SpecificInfo: No Meds Exist/No RX given Disposition: DISCHARGE HOME Condition: Stable Salina Conrad May 07, 2017 00:16
== END 2017-05-07 06:40 | disposition home or self-care (01) ==
LOC: NEPD 23:46
DX: R44.0 Auditory hallucinations (principal); F17.290 Nicotine dependence, other tobacco product, uncomplicated; Z76.5 Malingerer [conscious simulation]
CPT/HCPCS: 99282

== ENCOUNTER 2017-05-08 10:34 | Emergency (ER) | payer OTHER ==
[~2017-05-08] VITALS: Ht 177.8 cm; Wt 107.0 kg
[2017-05-08 10:54] VITALS: BP 175/112; PULSE 84; RESP 17; TEMP 98.8; O2SAT 100
--- NOTE | 2017-05-08 11:02 | PD ---
HPI Chief Complaint: Skin Problem Time Seen by Provider: 10:55 Travel History International Travel<30 days: No Contact w/Intl Traveler<30days: No Traveled to known affect area: No History of Present Illness HPI 57-year-old male presents emergency department via custody of police. 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 Patient resisted arrest sustained multiple revisions to both wrists and hands. Patient has no other injuries. Pain is minimal. Tetanus is up-to-date. Patient is requesting all of his morning medications which he has not gotten yet. Patient was just seen and released through psychiatric services 2 days ago. Patient has no known drug allergies. PFSH Past Medical History Hx Anticoagulant Therapy: No Arthritis: Yes Asthma: No Blood Disorders: No Bipolar Disorder: Yes Anxiety: Yes Depression: Yes Heart Rhythm Problems: No Cancer: No Cardiac Catheterization: No Cardiovascular Problems: Yes (HTN) High Cholesterol: Yes Chemotherapy: No Chest Pain: No Congestive Heart Failure: No COPD: Yes Cerebrovascular Accident: No Diabetes: No Diminished Hearing: No Diverticulitis: Yes Endocrine: No Gastrointestinal Disorders: Yes (DIVERTICULITIS ) GERD: No Genitourinary: No Headaches: No Hiatal Hernia: No Heparin Induced Thrombocytopen: No Hypertension: Yes Immune Disorder: No Implanted Vascular Access Dvce: Yes Musculoskeletal: Yes Neurologic: No Psychiatric: Yes (PTSD ) Reproductive: No Respiratory: Yes Integumentary: Yes (LEFT LEG CELLULITIS) Immunizations Current: Yes Migraines: No Radiation Therapy: No Renal Failure: Yes Seizures: No Sleep Apnea: No Ulcer: Yes Past Surgical History Abdominal Surgery: Yes (2004 CAUTERIZED ULCER) AICD: No Arteriovenous Shunt: No Cardiac Surgery: No Coronary Artery Bypass Graft: No Ear Surgery: No Endocrine Surgery: No Eye Surgery: No Genitourinary Surgery: No Gynecologic Surgery: No Hysterectomy: No Insulin Pump: No Joint Replacement: Yes (R FEMUR) Neurologic Surgery: No Oral Surgery: No Pacemaker: No Thoracic Surgery: No Other Surgery: Yes ("bleeding ulcers") Social History Alcohol Use: No Tobacco Use: Yes (3 cigars PER DAY) Substance Use: No Allergies-Medications (Allergen,Severity, Reaction): Coded Allergies: No Known Allergies (Unverified , 05/07/17) Reported Meds & Prescriptions Reported Meds & Active Scripts Active Gnp Vitamin D3 Extra Stre (Cholecalciferol) 1,000 Unit Tab 1,000 Units PO DAILY 7 Days Effexor XR 24 HR (Venlafaxine HCl) 75 Mg Cap 150 Mg PO DAILY 7 Days Trazodone (Trazodone HCl) 50 Mg Tab 150 Mg PO HS PRN 7 Days Bacitracin Topical 500 Unit/Gm Oint 1 Applic TOPICAL TID Apply thin layer to affected leg. Doxycycline Hyclate 100 Mg Cap 100 Mg PO BID 7 Days Protonix (Pantoprazole Sodium) 20 Mg Tab 20 Mg PO DAILY 7 Days Hydrochlorothiazide 25 Mg Tab 25 Mg PO DAILY 7 Days Oxycodone-Acetaminophen 5-325 (Oxycodone HCl/Acetaminophen) 5 Mg-325 Mg Tablet 1 Tab PO Q6H PRN Norvasc (Amlodipine Besylate) 10 Mg Tab 10 Mg PO DAILY 7 Days Lisinopril 40 Mg Tab 40 Mg PO DAILY 7 Days Gabapentin 600 Mg Tab 1,200 Mg PO TID 7 Days Wheelchair Elevated Leg (Device) 1 Mis Mis Ea .ROUTE DIRECTED [prosthetic right leg] Review of Systems Except as stated in HPI: all other systems reviewed are Neg General / Constitutional: No: Fever Eyes: No: Visual changes HENT: No: Headaches Cardiovascular: No: Chest Pain or Discomfort Respiratory: No: Shortness of Breath Gastrointestinal: No: Abdominal Pain Genitourinary: No: Dysuria Musculoskeletal: No: Pain Skin: Positive Lesions (See history of present illness), No Rash Neurologic: No: Weakness Psychiatric: No: Depression Endocrine: No: Polydipsia Hematologic/Lymphatic: No: Easy Bruising Physical Exam Narrative GENERAL: Patient is upset although otherwise in no acute distress. SKIN: Warm and dry. Patient has multiple superficial abrasions to the wrists and hands consistent with being handcuffed and resisting. There is no deep lacerations requiring repair. HEAD: Atraumatic. Normocephalic. EYES: Pupils equal and round. No scleral icterus. No injection or drainage. ENT: No nasal bleeding or discharge. Mucous membranes pink and moist. Pharynx is clear. Airways patent. No dental injury. NECK: Trachea midline. Supple and nontender. CARDIOVASCULAR: Regular rate and rhythm. RESPIRATORY: No accessory muscle use. Clear to auscultation. Breath sounds equal bilaterally. MUSCULOSKELETAL: Extremities without clubbing, cyanosis, or edema. No obvious deformities. NEUROLOGICAL: Awake and alert. No obvious cranial nerve deficits. Motor grossly within normal limits. Five out of 5 muscle strength in the arms and legs. Normal speech. PSYCHIATRIC: Appropriate mood and affect; insight and judgment normal. Data Data Last Documented VS Vital Signs Date Time Temp Pulse Resp B/P (MAP) Pulse Ox O2 Delivery O2 Flow Rate FiO2 05/08/17 10:54 98.8 84 17 175/112 (133) 100 Room Air Orders Orders Wound Care (05/08/17 11:03) Lisinopril (Prinivil) (05/08/17 11:15) Amlodipine (Norvasc) (05/08/17 11:15) Venlafaxine Xr (Effexor Xr) (05/08/17 11:15) Pantoprazole (Protonix) (05/08/17 11:15) Hydrochlorothiazide (Hydrodiuril) (05/08/17 11:15) Gabapentin (Neurontin) (05/08/17 11:15) MDM Medical Decision Making Medical Screen Exam Complete: Yes Emergency Medical Condition: Yes Medical Record Reviewed: Yes Differential Diagnosis Multiple abrasions. History of personality disorder. Medical clearance for incarceration. Narrative Course Patient does not appear to have any significant injuries requiring radiographic imaging. Wounds are cleaned and dressed by nursing staff. Patient is given his regular morning time doses of his medications. Patient is medically cleared for incarceration. Diagnosis Primary Impression: Medical clearance for incarceration Additional Impression: Abrasion Patient Instructions: Abrasion (ED), General Instructions Additional Instructions: Patient does not appear to have any significant injuries requiring radiographic imaging. Wounds are cleaned and dressed by nursing staff. Patient is given his regular morning time doses of his medications. Patient is medically cleared for incarceration. Med/Other Pt SpecificInfo: No Change to Meds Disposition: [address] LAW ENFORCEMNT Condition: Stable Ajit Morel May 08, 2017 11:02
[2017-05-08] MEDS ORDERED: LISINOPRIL 20 MG TAB PO SCH (11:15)
[2017-05-08] MEDS ORDERED: VENLAFAXINE HCL XR 75 MG CAP PO ONE (11:15)
[2017-05-08] MEDS ORDERED: GABAPENTIN 300 MG CAP PO ONE (11:15)
[2017-05-08] MEDS ORDERED: HYDROCHLOROTHIAZIDE 25 MG TAB PO ONE (11:15)
[2017-05-08] MEDS ORDERED: PANTOPRAZOLE SOD 20 MG DELAYED RELEASE TAB PO ONE (11:15)
[2017-05-08 11:48] VITALS: BP 167/97
== END 2017-05-08 11:59 ==
LOC: NEPD 10:34
DX: T14.8XXA Other injury of unspecified body region, initial encounter (principal); X58.XXXA Exposure to other specified factors, initial encounter; F31.9 Bipolar disorder, unspecified; I10 Essential (primary) hypertension; E78.00 Pure hypercholesterolemia, unspecified; J44.9 Chronic obstructive pulmonary disease, unspecified; F17.290 Nicotine dependence, other tobacco product, uncomplicated
CPT/HCPCS: 99283

== ENCOUNTER 2017-07-15 23:49 | Emergency (ER) | payer OTHER ==
[~2017-07-15] VITALS: Ht 182.9 cm; Wt 110.0 kg
[2017-07-16 00:05] VITALS: BP 171/84; PULSE 116; RESP 18; TEMP 100.5; O2SAT 95
[2017-07-16 01:00] VITALS: BP 150/87; PULSE 113; RESP 16; O2SAT 96
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
[2017-07-16] MEDS ORDERED: SULFAMETHOXAZOLE-TRIMETHOPRIM DS 800-160 MG TAB PO ONE (02:15)
[2017-07-16] MEDS ORDERED: SODIUM CHLOR 0.9% 1000 ML INJ 1,000 ML IV ONE (02:30)
[2017-07-16] MEDS ORDERED: CLINDAMYCIN 900 MG/NS PREMIX 50 ML IV ONE (02:30)
[2017-07-16 03:22] LABS: AUTOMATED NEUTROPHIL # 4.9 TH/MM3 (1.8-7.7); BASOPHIL % 0.6 % (0.0-2.0); EOSINOPHIL % 0.1 % (0.0-4.0); HEMATOCRIT 41.8 % (39.0-51.0); HEMOGLOBIN 14.7 GM/DL (13.0-17.0); LYMPH % 24.2 % (9.0-44.0); LYMPHOCYTE # 1.8 TH/MM3 (1.0-4.8); MEAN CELL VOLUME 87.9 FL (80.0-100.0); MEAN CORPUSCULAR HGB CONC 35.2 % (32.0-36.0); MEAN PLATELET VOLUME 7.8 FL (7.0-11.0); MONO % 7.8 % (0.0-8.0); MONOCYTE # 0.6 TH/MM3 (0-0.9); NEUT % 67.3 % (16.0-70.0); PLATELET COUNT 188 TH/MM3 (150-450); RED BLOOD COUNT 4.76 MIL/MM3 (4.50-5.90); RED CELL DISTRIBUTION WIDTH 15.1 % (11.6-17.2); WHITE BLOOD COUNT 7.2 TH/MM3 (4.0-11.0)
[2017-07-16 03:30] LABS: BILIRUBIN, URINE NEG (NEG); BLOOD, URINE NEG (NEG); GLUCOSE,URINE NEG (NEG); HYALINE CAST, URINE 2 /lpf (RARE); KETONE, URINE TRACE mg/dL (NEG); MUCUS URINE FEW /lpf (OCC); NITRITE,URINE NEG (NEG); SQUAMOUS EPITHELIAL CELL URINE <1 /hpf (0-5); URINE COLOR YELLOW (YELLW/STRAW); URINE LEUKOCYTE ESTERASE NEG (NEG)
[2017-07-16 04:08] LABS: ACETAMINOPHEN LESS THAN 2.0 MCG/ML (10.0-30.0); ALBUMIN 3.1 GM/DL (3.4-5.0); ALKALINE PHOSPHATASE 76 U/L (45-117); ALT (GPT) 64 U/L (12-78); AST (GOT) 52 U/L (15-37); BICARBONATE 24.5 MEQ/L (21.0-32.0); BLOOD UREA NITROGEN 8 MG/DL (7-18); CALCIUM 8.4 MG/DL (8.5-10.1); CHLORIDE 102 MEQ/L (98-107); CREATININE 0.95 MG/DL (0.60-1.30); GLOMERULAR FILTRATION RATE 82 ML/MIN (>89); GLUCOSE,RANDOM 97 MG/DL (74-106); SODIUM (NA) 135 MEQ/L (136-145); TOTAL BILIRUBIN ADULT 0.9 MG/DL (0.2-1.0); TOTAL PROTEIN 7.7 GM/DL (6.4-8.2)
[2017-07-16] MEDS ORDERED: BACT800T5 PO (06:39)
[2017-07-16 18:31] VITALS: BP 129/76; PULSE 83; RESP 18; O2SAT 100
[2017-07-16 22:29] VITALS: BP 151/89; PULSE 82; RESP 17; TEMP 99.4; O2SAT 99
[2017-07-17 05:11] VITALS: BP 156/85; PULSE 82; RESP 18; TEMP 98.4; O2SAT 98
[2017-07-17 10:05] VITALS: BP 153/108; PULSE 94; RESP 20
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
[2017-07-17] MEDS ORDERED: BACT800T5 PO (11:00)
--- NOTE | 2017-07-17 11:02 | PD ---
Physical Exam Date Seen by Provider: Jul 17, 2017 Time Seen by Provider: 11:00 Narrative 57-year-old male previously evaluated with cellulitis, and request for psychiatric evaluation voluntarily, who is medically cleared by Darrel Cui, has been seen by psychiatric services and deemed psychiatrically stable for discharge at this time. Patient is to continue his Bactrim DS twice daily 7 days. Psychiatric follow-up will be based on the psychiatric note. Patient remains medically stable for discharge at this time. Data Data Last Documented VS Vital Signs Date Time Temp Pulse Resp B/P (MAP) Pulse Ox O2 Delivery O2 Flow Rate FiO2 07/17/17 10:05 94 20 153/108 (123) 07/17/17 05:11 98.4 98 Room Air Orders Orders Sulfamet-Trimeth Ds 800-160 Mg (Bactrim (07/16/17 02:15) Psych Screen (07/16/17 02:22) Drug Screen, Random Urine (07/16/17 02:22) Complete Blood Count With Diff (07/16/17 02:23) Comprehensive Metabolic Panel (07/16/17 02:23) Thyroid Stimulating Hormone (07/16/17 02:23) Urinalysis - C+S If Indicated (07/16/17 02:23) Iv Access Insert/Monitor (07/16/17 02:23) Alcohol (Ethanol) (07/16/17 02:23) Salicylates (Aspirin) (07/16/17 02:23) Tylenol (Acetaminophen) (07/16/17 02:23) Sodium Chlor 0.9% 1000 Ml Inj (Ns 1000 M (07/16/17 02:30) Clindamycin 900 Mg/Ns Premix (Cleocin 90 (07/16/17 02:30) Diet Regular Basic (07/16/17 Breakfast) Diet Regular Basic (07/16/17 Lunch) Diet Regular Basic (07/17/17 Breakfast) Diet Regular Basic (07/17/17 Lunch) Labs Laboratory Tests Test 07/16/17 03:05 07/16/17 03:10 White Blood Count 7.2 TH/MM3 Red Blood Count 4.76 MIL/MM3 Hemoglobin 14.7 GM/DL Hematocrit 41.8 % Mean Corpuscular Volume 87.9 FL Mean Corpuscular Hemoglobin 31.0 PG Mean Corpuscular Hemoglobin Concent 35.2 % Red Cell Distribution Width 15.1 % Platelet Count 188 TH/MM3 Mean Platelet Volume 7.8 FL Neutrophils (%) (Auto) 67.3 % Lymphocytes (%) (Auto) 24.2 % Monocytes (%) (Auto) 7.8 % Eosinophils (%) (Auto) 0.1 % Basophils (%) (Auto) 0.6 % Neutrophils # (Auto) 4.9 TH/MM3 Lymphocytes # (Auto) 1.8 TH/MM3 Monocytes # (Auto) 0.6 TH/MM3 Eosinophils # (Auto) 0.0 TH/MM3 Basophils # (Auto) 0.0 TH/MM3 CBC Comment DIFF FINAL Differential Comment Blood Urea Nitrogen 8 MG/DL Creatinine 0.95 MG/DL Random Glucose 97 MG/DL Total Protein 7.7 GM/DL Albumin 3.1 GM/DL Calcium Level 8.4 MG/DL Alkaline Phosphatase 76 U/L Aspartate Amino Transf (AST/SGOT) 52 U/L Alanine Aminotransferase (ALT/SGPT) 64 U/L Total Bilirubin 0.9 MG/DL Sodium Level 135 MEQ/L Potassium Level 3.5 MEQ/L Chloride Level 102 MEQ/L Carbon Dioxide Level 24.5 MEQ/L Anion Gap 9 MEQ/L Estimat Glomerular Filtration Rate 82 ML/MIN Thyroid Stimulating Hormone 3rd Gen 0.421 uIU/ML Salicylates Level 2.9 MG/DL Acetaminophen Level LESS THAN 2.0 MCG/ML Ethyl Alcohol Level LESS THAN 3 MG/DL Urine Color YELLOW Urine Turbidity CLEAR Urine pH 7.0 Urine Specific [place] 1.022 Urine Protein TRACE mg/dL Urine Glucose (UA) NEG mg/dL Urine Ketones TRACE mg/dL Urine Occult Blood NEG Urine Nitrite NEG Urine Bilirubin NEG Urine Urobilinogen 8.0 MG/DL Urine Leukocyte Esterase NEG Urine RBC 1 /hpf Urine WBC LESS THAN 1 /hpf Urine Squamous Epithelial Cells <1 /hpf Urine Hyaline Casts 2 /lpf Urine Mucus FEW /lpf Microscopic Urinalysis Comment CULT NOT INDICATED Urine Opiates Screen NEG Urine Barbiturates Screen NEG Urine Amphetamines Screen NEG Urine Benzodiazepines Screen NEG Urine Cocaine Screen NEG Urine Cannabinoids Screen NEG MDM Medical Record Reviewed: Yes Supervised Visit with FRANSISCO: Yes Narrative Course 57-year-old male previously evaluated with cellulitis, and request for psychiatric evaluation voluntarily, who is medically cleared by Darrel Cui, has been seen by psychiatric services and deemed psychiatrically stable for discharge at this time. Patient is to continue his Bactrim DS twice daily 7 days. Psychiatric follow-up will be based on the psychiatric note. Patient remains medically stable for discharge at this time. Diagnosis Primary Impression: Multiple wounds of skin Additional Impressions: Adjustment disorder with depressed mood impetigo Patient Instructions: General Instructions Departure Forms: Tests/Procedures Additional Instruction: Take Bactrim as prescribed Follow up with Everett Schmidt/[facility] Follow up with primary care physician Return to Emergency Department if symptoms persist or worsen. Scripts Sulfamethoxazole-Trimethoprim (Bactrim DS) 800-160 Mg Tab 1 TAB PO BID for Infection, #20 TAB 0 Refills Prov: Adan Matamoros MD 07/17/17 Disposition: 01 DISCHARGE HOME Condition: Stable Ajit Morel Jul 17, 2017 11:02
== END 2017-07-17 11:41 | disposition home or self-care (01) ==
LOC: NEPD 23:49 → NEPJ 07-17 11:41
DX: F43.21 Adjustment disorder with depressed mood (principal); L01.00 Impetigo, unspecified; F31.9 Bipolar disorder, unspecified; F43.10 Post-traumatic stress disorder, unspecified; I10 Essential (primary) hypertension; N19 Unspecified kidney failure; Z59.0 Homelessness; Z87.19 Personal history of other diseases of the digestive system; Z79.899 Other long term (current) drug therapy
CPT/HCPCS: 80053; 80307; 81001; 84443; 85025; 96374; 99284; J7030

== ENCOUNTER 2017-08-25 00:20 | Emergency (ER) | payer SELFPAY ==
[~2017-08-25 00:20] MED LIST changes: +BACT800T5 PO; -CHOL1000 PO; -DOXY100C PO
[2017-08-25 00:23] VITALS: BP 166/82; PULSE 84; RESP 17; TEMP 97.3; O2SAT 99
--- NOTE | 2017-08-25 00:53 | PD ---
HPI Chief Complaint: Medication Refill Request Time Seen by Provider: 00:39 Travel History International Travel<30 days: No Contact w/Intl Traveler<30days: No Traveled to known affect area: No History of Present Illness HPI 57-year-old white male presents emergency department stating that he was referred to the ER by his psychiatrist so he can be evaluated and have a medication adjustment. Patient states that he has a history of depression and has been on Effexor. He saw his psychiatrist in the office approximately 1 month ago. He states that over the last few weeks he has felt increasingly depressed. He denies any suicidal homicidal ideation. He states that he was advised to come to the ER for medication adjustment. He also states that he has not seen his primary care doctor and has not had a refill of his medications. He is out of his gabapentin for his chronic pain. He denies any fever chills. No chest pain shortness of breath. No toxic ingestions. Symptoms are moderate. No alleviating factors. Exacerbated by lack of medications. PFSH Past Medical History Hx Anticoagulant Therapy: No Arthritis: Yes Asthma: No Blood Disorders: No Bipolar Disorder: Yes Anxiety: Yes Depression: Yes Heart Rhythm Problems: No Cancer: No Cardiac Catheterization: No Cardiovascular Problems: Yes (HTN) High Cholesterol: Yes Chemotherapy: No Chest Pain: No Congestive Heart Failure: No COPD: Yes Cerebrovascular Accident: No Diabetes: No Patient Takes Glucophage: No Diminished Hearing: No Diverticulitis: Yes Endocrine: No Gastrointestinal Disorders: Yes (DIVERTICULITIS ) GERD: No Genitourinary: No Headaches: No Hiatal Hernia: No Heparin Induced Thrombocytopen: No Hypertension: Yes Immune Disorder: No Implanted Vascular Access Dvce: Yes Musculoskeletal: Yes Neurologic: No Psychiatric: Yes (PTSD ) Reproductive: No Respiratory: Yes Integumentary: Yes (LEFT LEG CELLULITIS) Immunizations Current: Yes Migraines: No Radiation Therapy: No Renal Failure: Yes Seizures: No Sleep Apnea: No Ulcer: Yes Tetanus Vaccination: < 5 Years Influenza Vaccination: Yes Past Surgical History Narrative Surgical Below the knee amputation on the right, ulcer surgery Abdominal Surgery: Yes (2003 CAUTERIZED ULCER) AICD: No Arteriovenous Shunt: No Cardiac Surgery: No Coronary Artery Bypass Graft: No Ear Surgery: No Endocrine Surgery: No Eye Surgery: No Genitourinary Surgery: No Gynecologic Surgery: No Hysterectomy: No Insulin Pump: No Joint Replacement: Yes (R FEMUR) Neurologic Surgery: No Oral Surgery: No Pacemaker: No Thoracic Surgery: No Other Surgery: Yes ("bleeding ulcers") Family History Family Myocardial Infarction: Yes ([place]) Social History Alcohol Use: Yes (OCCASIONAL) Tobacco Use: Yes (3 cigars PER DAY) Substance Use: No Allergies-Medications (Allergen,Severity, Reaction): Coded Allergies: No Known Allergies (Unverified , 08/25/17) Reported Meds & Prescriptions Reported Meds & Active Scripts Active Effexor XR 24 HR (Venlafaxine HCl) 75 Mg Cap 150 Mg PO DAILY 7 Days Trazodone (Trazodone HCl) 50 Mg Tab 150 Mg PO HS PRN 7 Days Protonix (Pantoprazole Sodium) 20 Mg Tab 20 Mg PO DAILY 7 Days Hydrochlorothiazide 25 Mg Tab 25 Mg PO DAILY 7 Days Norvasc (Amlodipine Besylate) 10 Mg Tab 10 Mg PO DAILY 7 Days Lisinopril 40 Mg Tab 40 Mg PO DAILY 7 Days Gabapentin 600 Mg Tab 1,200 Mg PO TID 7 Days Wheelchair Elevated Leg (Device) 1 Mis Mis Ea .ROUTE DIRECTED [prosthetic right leg] Review of Systems General / Constitutional: No: Fever Eyes: No: Visual changes HENT: No: Headaches Cardiovascular: No: Chest Pain or Discomfort Respiratory: No: Shortness of Breath Gastrointestinal: No: Abdominal Pain Genitourinary: No: Dysuria Musculoskeletal: Positive: Arthralgias, Pain Skin: No Rash Neurologic: No: Weakness Psychiatric: Positive: Depression, Mood Disorder, No: Anxiety, Suicidal Ideations, Disorder of Thought, Substance Abuse, Homicidal Ideation Endocrine: No: Polydipsia Hematologic/Lymphatic: No: Easy Bruising Physical Exam Narrative GENERAL: Well-nourished, well-developed patient. SKIN: Warm and dry. HEAD: Normocephalic and atraumatic. EYES: No scleral icterus. No injection or drainage. ENT: No nasal drainage noted. Mucous membranes pink. Airway patent. NECK: Supple, trachea midline. Moves head freely without obvious discomfort. CARDIOVASCULAR: Regular rate and rhythm without murmurs, gallops, or rubs. RESPIRATORY: Breath sounds equal bilaterally. No accessory muscle use. GASTROINTESTINAL: Abdomen soft, non-tender, nondistended. EXTREMITIES: No cyanosis or edema. Below the knee amputation on the right BACK: Nontender without obvious deformity. No CVA tenderness. NEURO: Patient is alert and oriented. no sensorimotor deficits. Nonfocal. Normal speech. PSYCH: No delusions. No auditory or visual hallucinations. Data Data Last Documented VS Vital Signs Date Time Temp Pulse Resp B/P (MAP) Pulse Ox O2 Delivery O2 Flow Rate FiO2 08/25/17 04:50 84 18 149/69 (95) 97 Room Air 08/25/17 00:23 97.3 Orders Orders Complete Blood Count With Diff (08/25/17 00:44) Comprehensive Metabolic Panel (08/25/17 00:44) Thyroid Stimulating Hormone (08/25/17 00:44) Psych Screen (08/25/17 00:44) Drug Screen, Random Urine (08/25/17 00:44) Alcohol (Ethanol) (08/25/17 00:44) Diet Heart Healthy (08/25/17 Breakfast) Labs Laboratory Tests Test 08/25/17 00:54 White Blood Count 7.4 TH/MM3 Red Blood Count 4.94 MIL/MM3 Hemoglobin 15.3 GM/DL Hematocrit 44.3 % Mean Corpuscular Volume 89.7 FL Mean Corpuscular Hemoglobin 31.0 PG Mean Corpuscular Hemoglobin Concent 34.6 % Red Cell Distribution Width 14.1 % Platelet Count 157 TH/MM3 Mean Platelet Volume 8.1 FL Neutrophils (%) (Auto) 50.8 % Lymphocytes (%) (Auto) 41.7 % Monocytes (%) (Auto) 5.1 % Eosinophils (%) (Auto) 1.9 % Basophils (%) (Auto) 0.5 % Neutrophils # (Auto) 3.7 TH/MM3 Lymphocytes # (Auto) 3.1 TH/MM3 Monocytes # (Auto) 0.4 TH/MM3 Eosinophils # (Auto) 0.1 TH/MM3 Basophils # (Auto) 0.0 TH/MM3 CBC Comment DIFF FINAL Differential Comment Blood Urea Nitrogen 14 MG/DL Creatinine 1.09 MG/DL Random Glucose 75 MG/DL Total Protein 8.0 GM/DL Albumin 3.6 GM/DL Calcium Level 8.8 MG/DL Alkaline Phosphatase 108 U/L Aspartate Amino Transf (AST/SGOT) 73 U/L Alanine Aminotransferase (ALT/SGPT) 106 U/L Total Bilirubin 0.5 MG/DL Sodium Level 144 MEQ/L Potassium Level 4.1 MEQ/L Chloride Level 108 MEQ/L Carbon Dioxide Level 29.5 MEQ/L Anion Gap 7 MEQ/L Estimat Glomerular Filtration Rate 70 ML/MIN Thyroid Stimulating Hormone 3rd Gen 1.990 uIU/ML Ethyl Alcohol Level LESS THAN 3 MG/DL MDM Medical Decision Making Medical Screen Exam Complete: Yes Emergency Medical Condition: Yes Medical Record Reviewed: Yes Interpretation(s) Laboratory Tests Test 08/25/17 00:54 White Blood Count 7.4 TH/MM3 Red Blood Count 4.94 MIL/MM3 Hemoglobin 15.3 GM/DL Hematocrit 44.3 % Mean Corpuscular Volume 89.7 FL Mean Corpuscular Hemoglobin 31.0 PG Mean Corpuscular Hemoglobin Concent 34.6 % Red Cell Distribution Width 14.1 % Platelet Count 157 TH/MM3 Mean Platelet Volume 8.1 FL Neutrophils (%) (Auto) 50.8 % Lymphocytes (%) (Auto) 41.7 % Monocytes (%) (Auto) 5.1 % Eosinophils (%) (Auto) 1.9 % Basophils (%) (Auto) 0.5 % Neutrophils # (Auto) 3.7 TH/MM3 Lymphocytes # (Auto) 3.1 TH/MM3 Monocytes # (Auto) 0.4 TH/MM3 Eosinophils # (Auto) 0.1 TH/MM3 Basophils # (Auto) 0.0 TH/MM3 CBC Comment DIFF FINAL Differential Comment Blood Urea Nitrogen 14 MG/DL Creatinine 1.09 MG/DL Random Glucose 75 MG/DL Total Protein 8.0 GM/DL Albumin 3.6 GM/DL Calcium Level 8.8 MG/DL Alkaline Phosphatase 108 U/L Aspartate Amino Transf (AST/SGOT) 73 U/L Alanine Aminotransferase (ALT/SGPT) 106 U/L Total Bilirubin 0.5 MG/DL Sodium Level 144 MEQ/L Potassium Level 4.1 MEQ/L Chloride Level 108 MEQ/L Carbon Dioxide Level 29.5 MEQ/L Anion Gap 7 MEQ/L Estimat Glomerular Filtration Rate 70 ML/MIN Thyroid Stimulating Hormone 3rd Gen 1.990 uIU/ML Ethyl Alcohol Level LESS THAN 3 MG/DL Differential Diagnosis MDM: High Differential diagnoses: Schizophrenia, schizoaffective disorder, bipolar, anxiety, depression, adjustment reaction, mood disorder NOS, ODD, depressive disorder NOS, psychosis NOS, substance induced mood disorder, infection, electrolyte abnormality, malingering. Narrative Course Mental health screening discussed with the patient. Psychiatric screen ordered. The patient's been medically cleared. This is medical clearance for psychiatric admission Diagnosis Primary Impression: Medical clearance for psychiatric admission Additional Impression: Neuropathy Condition: Stable Darrel Baez August 25, 2017 00:53
[2017-08-25 01:07] LABS: AUTOMATED NEUTROPHIL # 3.7 TH/MM3 (1.8-7.7); BASOPHIL % 0.5 % (0.0-2.0); EOSINOPHIL # 0.1 TH/MM3 (0-0.4); EOSINOPHIL % 1.9 % (0.0-4.0); HEMATOCRIT 44.3 % (39.0-51.0); HEMOGLOBIN 15.3 GM/DL (13.0-17.0); LYMPH % 41.7 % (9.0-44.0); LYMPHOCYTE # 3.1 TH/MM3 (1.0-4.8); MEAN CELL VOLUME 89.7 FL (80.0-100.0); MEAN CORPUSCULAR HGB CONC 34.6 % (32.0-36.0); MEAN PLATELET VOLUME 8.1 FL (7.0-11.0); MONO % 5.1 % (0.0-8.0); MONOCYTE # 0.4 TH/MM3 (0-0.9); NEUT % 50.8 % (16.0-70.0); PLATELET COUNT 157 TH/MM3 (150-450); RED BLOOD COUNT 4.94 MIL/MM3 (4.50-5.90); RED CELL DISTRIBUTION WIDTH 14.1 % (11.6-17.2); WHITE BLOOD COUNT 7.4 TH/MM3 (4.0-11.0)
[2017-08-25 01:42] LABS: ALKALINE PHOSPHATASE 108 U/L (45-117); TOTAL BILIRUBIN ADULT 0.5 MG/DL (0.2-1.0)
[2017-08-25 01:58] LABS: ALBUMIN 3.6 GM/DL (3.4-5.0); ALT (GPT) 106 U/L (12-78); AST (GOT) 73 U/L (15-37); BICARBONATE 29.5 MEQ/L (21.0-32.0); BLOOD UREA NITROGEN 14 MG/DL (7-18); CALCIUM 8.8 MG/DL (8.5-10.1); CHLORIDE 108 MEQ/L (98-107); CREATININE 1.09 MG/DL (0.60-1.30); GLOMERULAR FILTRATION RATE 70 ML/MIN (>89); GLUCOSE,RANDOM 75 MG/DL (74-106); SODIUM (NA) 144 MEQ/L (136-145)
[2017-08-25 04:50] VITALS: BP 149/69; PULSE 84; RESP 18; O2SAT 97
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
--- NOTE | 2017-08-25 11:09 | PD ---
Physical Exam Date Seen by Provider: August 25, 2017 Time Seen by Provider: 11:08 Narrative 57-year-old male previously medically cleared for psychiatric evaluation has been seen and evaluated by psychiatric services. Patient is currently deemed psychiatrically stable for discharge. Patient remains medically stable for discharge at this time. Follow-up will be based on psychiatric note Data Data Last Documented VS Vital Signs Date Time Temp Pulse Resp B/P (MAP) Pulse Ox O2 Delivery O2 Flow Rate FiO2 08/25/17 04:50 84 18 149/69 (95) 97 Room Air 08/25/17 00:23 97.3 Orders Orders Complete Blood Count With Diff (08/25/17 00:44) Comprehensive Metabolic Panel (08/25/17 00:44) Thyroid Stimulating Hormone (08/25/17 00:44) Psych Screen (08/25/17 00:44) Drug Screen, Random Urine (08/25/17 00:44) Alcohol (Ethanol) (08/25/17 00:44) Diet Heart Healthy (08/25/17 Breakfast) Labs Laboratory Tests Test 08/25/17 00:54 08/25/17 08:00 White Blood Count 7.4 TH/MM3 Red Blood Count 4.94 MIL/MM3 Hemoglobin 15.3 GM/DL Hematocrit 44.3 % Mean Corpuscular Volume 89.7 FL Mean Corpuscular Hemoglobin 31.0 PG Mean Corpuscular Hemoglobin Concent 34.6 % Red Cell Distribution Width 14.1 % Platelet Count 157 TH/MM3 Mean Platelet Volume 8.1 FL Neutrophils (%) (Auto) 50.8 % Lymphocytes (%) (Auto) 41.7 % Monocytes (%) (Auto) 5.1 % Eosinophils (%) (Auto) 1.9 % Basophils (%) (Auto) 0.5 % Neutrophils # (Auto) 3.7 TH/MM3 Lymphocytes # (Auto) 3.1 TH/MM3 Monocytes # (Auto) 0.4 TH/MM3 Eosinophils # (Auto) 0.1 TH/MM3 Basophils # (Auto) 0.0 TH/MM3 CBC Comment DIFF FINAL Differential Comment Blood Urea Nitrogen 14 MG/DL Creatinine 1.09 MG/DL Random Glucose 75 MG/DL Total Protein 8.0 GM/DL Albumin 3.6 GM/DL Calcium Level 8.8 MG/DL Alkaline Phosphatase 108 U/L Aspartate Amino Transf (AST/SGOT) 73 U/L Alanine Aminotransferase (ALT/SGPT) 106 U/L Total Bilirubin 0.5 MG/DL Sodium Level 144 MEQ/L Potassium Level 4.1 MEQ/L Chloride Level 108 MEQ/L Carbon Dioxide Level 29.5 MEQ/L Anion Gap 7 MEQ/L Estimat Glomerular Filtration Rate 70 ML/MIN Thyroid Stimulating Hormone 3rd Gen 1.990 uIU/ML Ethyl Alcohol Level LESS THAN 3 MG/DL Urine Opiates Screen NEG Urine Barbiturates Screen NEG Urine Amphetamines Screen NEG Urine Benzodiazepines Screen NEG Urine Cocaine Screen NEG Urine Cannabinoids Screen NEG MDM Medical Record Reviewed: Yes Supervised Visit with FRANSISCO: Yes Narrative Course 57-year-old male previously medically cleared for psychiatric evaluation has been seen and evaluated by psychiatric services. Patient is currently deemed psychiatrically stable for discharge. Patient remains medically stable for discharge at this time. Follow-up will be based on psychiatric note Diagnosis Primary Impression: Adjustment disorder with depressed mood Additional Impressions: Malingering Neuropathy Patient Instructions: General Instructions Disposition: DISCHARGE HOME Condition: Stable Ajit Morel August 25, 2017 11:09
== END 2017-08-25 11:33 | disposition home or self-care (01) ==
LOC: NEPJ 00:20
DX: F43.21 Adjustment disorder with depressed mood (principal); G62.9 Polyneuropathy, unspecified; I10 Essential (primary) hypertension; F31.9 Bipolar disorder, unspecified; F17.290 Nicotine dependence, other tobacco product, uncomplicated; Z79.899 Other long term (current) drug therapy
CPT/HCPCS: 80053; 80307; 84443; 85025; 99283

== ENCOUNTER 2017-09-10 07:02 | Inpatient (IN) | payer SELFPAY ==
[~2017-09-10] VITALS: Ht 177.8 cm; Wt 111.0 kg
[~2017-09-10 07:02] MED LIST changes: -BACI500O9 TOPICAL; -BACT800T5 PO; -OXYC1TAB63 PO
[2017-09-10 07:06] VITALS: BP 173/113; PULSE 99; RESP 18; TEMP 98.2; O2SAT 96
[2017-09-10] MEDS ORDERED: VANCOMYCIN INJ 1,000 MG in SODIUM CHLOR 0.9% 250 ML INJ 250 ML IV ONE (08:15)
--- NOTE | 2017-09-10 08:25 | PD ---
HPI Chief Complaint: Skin Problem Time Seen by Provider: 07:48 Travel History International Travel<30 days: No Contact w/Intl Traveler<30days: No Traveled to known affect area: No History of Present Illness HPI This patient complains of skin infection. 4 days ago he fell out of his wheelchair and scraped his left hand and left elbow on the ground. These areas have become infected. He has had multiple instances of MRSA infection. He has active pus drainage from several sites. He denies fever. 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 He is homeless. He denies history of IV drug abuse or HIV or diabetes. Symptom severity is moderate. Duration 4 days. No alleviating factors. No exacerbating factors. PFSH Past Medical History Hx Anticoagulant Therapy: No Arthritis: Yes Asthma: No Blood Disorders: No Bipolar Disorder: Yes Anxiety: Yes Depression: Yes Heart Rhythm Problems: No Cancer: No Cardiac Catheterization: No Cardiovascular Problems: Yes (HTN) High Cholesterol: Yes Chemotherapy: No Chest Pain: No Congestive Heart Failure: No COPD: Yes Cerebrovascular Accident: No Diabetes: No Diminished Hearing: No Diverticulitis: Yes Endocrine: No Gastrointestinal Disorders: Yes (DIVERTICULITIS ) GERD: No Genitourinary: No Headaches: No Hiatal Hernia: No Heparin Induced Thrombocytopen: No Hypertension: Yes Immune Disorder: No Implanted Vascular Access Dvce: Yes Musculoskeletal: Yes Neurologic: No Psychiatric: Yes (PTSD ) Reproductive: No Respiratory: Yes Integumentary: Yes (LEFT LEG CELLULITIS, multiple staph infections) Immunizations Current: Yes Migraines: No Radiation Therapy: No Renal Failure: Yes Seizures: No Sleep Apnea: No Ulcer: Yes Tetanus Vaccination: < 5 Years Influenza Vaccination: Yes Past Surgical History Abdominal Surgery: Yes (2004 CAUTERIZED ULCER) AICD: No Arteriovenous Shunt: No Cardiac Surgery: No Coronary Artery Bypass Graft: No Ear Surgery: No Endocrine Surgery: No Eye Surgery: No Genitourinary Surgery: No Gynecologic Surgery: No Hysterectomy: No Insulin Pump: No Joint Replacement: Yes (R FEMUR) Neurologic Surgery: No Oral Surgery: No Pacemaker: No Thoracic Surgery: No Other Surgery: Yes ("bleeding ulcers") Family History Family Myocardial Infarction: Yes (GRANDFATEHR PASSED FORM [place]) Social History Alcohol Use: No Tobacco Use: Yes (2 cigars PER DAY) Substance Use: No Allergies-Medications (Allergen,Severity, Reaction): Coded Allergies: No Known Allergies (Unverified , 09/10/17) Reported Meds & Prescriptions Reported Meds & Active Scripts Active Effexor XR 24 HR (Venlafaxine HCl) 75 Mg Cap 150 Mg PO DAILY 7 Days Trazodone (Trazodone HCl) 50 Mg Tab 150 Mg PO HS PRN 7 Days Protonix (Pantoprazole Sodium) 20 Mg Tab 20 Mg PO DAILY 7 Days Hydrochlorothiazide 25 Mg Tab 25 Mg PO DAILY 7 Days Norvasc (Amlodipine Besylate) 10 Mg Tab 10 Mg PO DAILY 7 Days Lisinopril 40 Mg Tab 40 Mg PO DAILY 7 Days Gabapentin 600 Mg Tab 1,200 Mg PO TID 7 Days Wheelchair Elevated Leg (Device) 1 Mis Mis Ea .ROUTE DIRECTED [prosthetic right leg] Review of Systems General / Constitutional: No: Fever Eyes: No: Visual changes HENT: No: Headaches Cardiovascular: No: Chest Pain or Discomfort Respiratory: No: Shortness of Breath Gastrointestinal: No: Abdominal Pain Genitourinary: No: Dysuria Musculoskeletal: Positive: Pain Skin: No Rash Neurologic: No: Weakness Psychiatric: No: Depression Endocrine: No: Polydipsia Hematologic/Lymphatic: No: Easy Bruising Physical Exam Narrative GENERAL: Well-nourished, well-developed patient in no apparent distress. SKIN: Focused skin assessment reveals no rash and nodules. Skin is Warm and dry. HEAD: Atraumatic. Normocephalic. EYES: Pupils equal and round. No scleral icterus. No injection or drainage. ENT: No nasal bleeding or discharge. Mucous membranes pink and moist. NECK: Trachea midline. No JVD. CARDIOVASCULAR: Regular rate and rhythm. No murmur appreciated. RESPIRATORY: No accessory muscle use. Clear to auscultation. Breath sounds equal bilaterally. GASTROINTESTINAL: Abdomen soft, non-tender, nondistended. Hepatic and splenic margins not palpable. MUSCULOSKELETAL: Has right BKA. No clubbing. No cyanosis. No edema. Patient has abrasion to the knuckles of his left hand. Several of these are infected with scabbed blister lesions. The third and fifth finger are draining yellow pus. Wound culture and Gram stain are are obtained. No pain with passive or active flexion or extension. Patient has cellulitic changes about the left olecranon with tenderness and swelling. There is some scabbed lesions and some yellow pus as well there is some erythematous streaking along the posterior left upper arm NEUROLOGICAL: Awake and alert. No obvious cranial nerve deficits. Motor grossly within normal limits. Normal speech. PSYCHIATRIC: Appropriate mood and affect; insight and judgment normal. Data Data Last Documented VS Vital Signs Date Time Temp Pulse Resp B/P (MAP) Pulse Ox O2 Delivery O2 Flow Rate FiO2 09/10/17 07:06 98.2 99 18 173/113 (133) 96 Orders Orders Wound Culture And Gram Stain (09/10/17 08:15) Iv Access Insert/Monitor (09/10/17 08:15) Complete Blood Count With Diff (09/10/17 08:15) Basic Metabolic Panel (Bmp) (09/10/17 08:15) Vancomycin Inj (Vancomycin Inj) (09/10/17 08:15) Labs Laboratory Tests Test 09/10/17 08:34 White Blood Count 12.1 TH/MM3 Red Blood Count 4.72 MIL/MM3 Hemoglobin 14.5 GM/DL Hematocrit 42.2 % Mean Corpuscular Volume 89.5 FL Mean Corpuscular Hemoglobin 30.8 PG Mean Corpuscular Hemoglobin Concent 34.4 % Red Cell Distribution Width 13.9 % Platelet Count 151 TH/MM3 Mean Platelet Volume 8.6 FL Neutrophils (%) (Auto) 72.9 % Lymphocytes (%) (Auto) 17.7 % Monocytes (%) (Auto) 8.4 % Eosinophils (%) (Auto) 0.7 % Basophils (%) (Auto) 0.3 % Neutrophils # (Auto) 8.8 TH/MM3 Lymphocytes # (Auto) 2.1 TH/MM3 Monocytes # (Auto) 1.0 TH/MM3 Eosinophils # (Auto) 0.1 TH/MM3 Basophils # (Auto) 0.0 TH/MM3 CBC Comment AUTO DIFF Differential Comment AUTO DIFF CONFIRMED Blood Urea Nitrogen 8 MG/DL Creatinine 0.86 MG/DL Random Glucose 98 MG/DL Calcium Level 8.9 MG/DL Sodium Level 138 MEQ/L Potassium Level 3.5 MEQ/L Chloride Level 107 MEQ/L Carbon Dioxide Level 21.8 MEQ/L Anion Gap 9 MEQ/L Estimat Glomerular Filtration Rate 92 ML/MIN MDM Medical Decision Making Medical Screen Exam Complete: Yes Emergency Medical Condition: Yes Medical Record Reviewed: Yes Differential Diagnosis Cellulitis, abscess, abrasions Narrative Course I have reviewed the patient's electronic medical record. He has been here multiple times for infected skin lesions IV placed and labs sent I gave him 1 g IV vancomycin Wound culture and Gram stain sent CBC and metabolic profiles are reasonably normal However I feel this infection is just going to spread and get worse if he is given only oral antibiotics. He has cellulitis of the left elbow and left upper arm with some lymphangitic changes. Also is infection of the left hand. Case reviewed with hospitalist who will observe him here and continue IV antibiotics Diagnosis Primary Impression: Cellulitis of left elbow Additional Impressions: Infection of left hand Homeless single person History of right below knee amputation Admitting Information Admitting Physician Requests: Observation Mario iTnajero MD Sep 10, 2017 08:25
[2017-09-10 09:00] LABS: AUTOMATED NEUTROPHIL # 8.8 TH/MM3 (1.8-7.7); BASOPHIL % 0.3 % (0.0-2.0); EOSINOPHIL # 0.1 TH/MM3 (0-0.4); EOSINOPHIL % 0.7 % (0.0-4.0); HEMATOCRIT 42.2 % (39.0-51.0); HEMOGLOBIN 14.5 GM/DL (13.0-17.0); LYMPH % 17.7 % (9.0-44.0); LYMPHOCYTE # 2.1 TH/MM3 (1.0-4.8); MEAN CELL VOLUME 89.5 FL (80.0-100.0); MEAN CORPUSCULAR HEMOGLOBIN 30.8 PG (27.0-34.0); MEAN CORPUSCULAR HGB CONC 34.4 % (32.0-36.0); MEAN PLATELET VOLUME 8.6 FL (7.0-11.0); MONO % 8.4 % (0.0-8.0); NEUT % 72.9 % (16.0-70.0); PLATELET COUNT 151 TH/MM3 (150-450); RED BLOOD COUNT 4.72 MIL/MM3 (4.50-5.90); RED CELL DISTRIBUTION WIDTH 13.9 % (11.6-17.2); WHITE BLOOD COUNT 12.1 TH/MM3 (4.0-11.0)
[2017-09-10 09:20] LABS: BICARBONATE 21.8 MEQ/L (21.0-32.0); CALCIUM 8.9 MG/DL (8.5-10.1); CREATININE 0.86 MG/DL (0.60-1.30)
[2017-09-10 14:20] VITALS: BP 172/111; PULSE 90; RESP 14; O2SAT 95
[2017-09-10] MEDS ORDERED: Vancomycin Consult Pharmacy 1 EA OTHER SCH (15:00)
[2017-09-10] MEDS ORDERED: SODIUM CHLORIDE 0.9% FLUSH 10 ML FLUSH IV FLUSH PRN (15:00)
[2017-09-10] MEDS ORDERED: VANCOMYCIN INJ 1,000 MG in SODIUM CHLOR 0.9% 250 ML INJ 250 ML IV SCH (15:00)
[2017-09-10] MEDS ORDERED: ACETAMINOPHEN 325 MG TAB PO PRN (15:00)
[2017-09-10] MEDS ORDERED: NALOXONE HCL 0.4 MG/ML AMP IV PUSH PRN (15:00)
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
[2017-09-10] MEDS: VENLAFAXINE HCL XR 75 MG CAP PO SCH (15:17)
[2017-09-10] MEDS: PANTOPRAZOLE SOD 20 MG DELAYED RELEASE TAB PO SCH (15:18)
[2017-09-10] MEDS: HYDROCHLOROTHIAZIDE 25 MG TAB PO SCH (15:18)
[2017-09-10] MEDS: LISINOPRIL 20 MG TAB PO SCH (15:18)
[2017-09-10 16:00] VITALS: BP 205/114; PULSE 94; RESP 20; TEMP 98; O2SAT 97
[2017-09-10] MEDS ORDERED: traZODone HCL 50 MG TAB PO PRN (16:00)
[2017-09-10] MEDS: ENOXAPARIN SODIUM 40 MG/0.4 ML SYRINGE SQ SCH (16:13)
[2017-09-10] MEDS: SODIUM CHLOR 0.9% 1000 ML INJ 1,000 ML IV SCH (16:13)
[2017-09-10] MEDS: GABAPENTIN 300 MG CAP PO SCH (17:34)
[2017-09-10 20:00] VITALS: BP 137/104; PULSE 85; RESP 18; TEMP 98.1; O2SAT 97
[2017-09-10] MEDS: DOCUSATE SODIUM 50 MG/SENNA 8.6 MG TAB PO SCH (21:05)
[2017-09-10] MEDS: VANCOMYCIN INJ 1,750 MG in SODIUM CHLORID 0.9% 500 ML INJ 500 ML IV SCH (21:05)
[2017-09-10] MEDS: SODIUM CHLORIDE 0.9% FLUSH 10 ML FLUSH IV FLUSH SCH (21:05)
[2017-09-11] VITALS: BP 142/80; PULSE 72; RESP 18; TEMP 97.4; O2SAT 95
[2017-09-11] MEDS: SODIUM CHLOR 0.9% 1000 ML INJ 1,000 ML IV SCH ×3 (05:32→20:19)
[2017-09-11 08:49] LABS: AUTOMATED NEUTROPHIL # 5.4 TH/MM3 (1.8-7.7); BASOPHIL % 0.3 % (0.0-2.0); EOSINOPHIL # 0.1 TH/MM3 (0-0.4); EOSINOPHIL % 1.1 % (0.0-4.0); HEMATOCRIT 42.2 % (39.0-51.0); HEMOGLOBIN 14.7 GM/DL (13.0-17.0); LYMPH % 22.6 % (9.0-44.0); LYMPHOCYTE # 1.8 TH/MM3 (1.0-4.8); MEAN CELL VOLUME 88.5 FL (80.0-100.0); MEAN CORPUSCULAR HEMOGLOBIN 30.8 PG (27.0-34.0); MEAN CORPUSCULAR HGB CONC 34.8 % (32.0-36.0); MEAN PLATELET VOLUME 8.7 FL (7.0-11.0); MONO % 8.1 % (0.0-8.0); MONOCYTE # 0.6 TH/MM3 (0-0.9); NEUT % 67.9 % (16.0-70.0); PLATELET COUNT 140 TH/MM3 (150-450); RED BLOOD COUNT 4.77 MIL/MM3 (4.50-5.90); RED CELL DISTRIBUTION WIDTH 13.8 % (11.6-17.2)
[2017-09-11 08:53] LABS: ALT (GPT) 59 U/L (12-78); AST (GOT) 47 U/L (15-37); BICARBONATE 23.5 MEQ/L (21.0-32.0); BLOOD UREA NITROGEN 6 MG/DL (7-18); CALCIUM 8.4 MG/DL (8.5-10.1); CHLORIDE 101 MEQ/L (98-107); CREATININE 0.65 MG/DL (0.60-1.30); GLOMERULAR FILTRATION RATE 128 ML/MIN (>89); GLUCOSE,RANDOM 87 MG/DL (74-106); SODIUM (NA) 135 MEQ/L (136-145)
[2017-09-11] MEDS: DOCUSATE SODIUM 50 MG/SENNA 8.6 MG TAB PO SCH ×3 (08:53→20:20)
[2017-09-11] MEDS: VANCOMYCIN INJ 1,750 MG in SODIUM CHLORID 0.9% 500 ML INJ 500 ML IV SCH (08:54)
[2017-09-11] MEDS: GABAPENTIN 300 MG CAP PO SCH ×3 (08:55→16:44)
[2017-09-11] MEDS: HYDROCHLOROTHIAZIDE 25 MG TAB PO SCH (08:55)
[2017-09-11] MEDS: PANTOPRAZOLE SOD 20 MG DELAYED RELEASE TAB PO SCH (08:55)
[2017-09-11 08:56] LABS: ALKALINE PHOSPHATASE 65 U/L (45-117); TOTAL BILIRUBIN ADULT 1.6 MG/DL (0.2-1.0); TOTAL PROTEIN 7.2 GM/DL (6.4-8.2)
[2017-09-11] MEDS: LISINOPRIL 20 MG TAB PO SCH (08:56)
[2017-09-11] MEDS: VENLAFAXINE HCL XR 75 MG CAP PO SCH (08:56)
[2017-09-11] MEDS: SODIUM CHLORIDE 0.9% FLUSH 10 ML FLUSH IV FLUSH SCH ×2 (08:56→20:19)
[2017-09-11 12:00] VITALS: BP 147/96; PULSE 99; RESP 18; TEMP 97.7; O2SAT 96
[2017-09-11] MEDS ORDERED: POTASSIUM CHLORIDE 25 MEQ EFFERVESCENT TAB PO ONE (12:30)
[2017-09-11] MEDS: PIPERACIL-TAZO 4.5 GM PREMIX 100 ML IV SCH ×2 (13:15→16:44)
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
[2017-09-11] MEDS ORDERED: MAGNESIUM HYDROXIDE SUSP 30 ML CUP PO PRN (14:45)
[2017-09-11] MEDS ORDERED: MORPHINE SULFATE 2 MG/ML SYRINGE IV PUSH PRN ×2 (14:45)
[2017-09-11] MEDS ORDERED: NALOXONE HCL 0.4 MG/ML AMP IV PUSH PRN (14:45)
[2017-09-11] MEDS ORDERED: SENNOSIDES 8.6 MG TAB PO PRN (14:45)
[2017-09-11] MEDS ORDERED: BISACODYL 10 MG SUPP RECTAL PRN (14:45)
[2017-09-11] MEDS ORDERED: ACETAMINOPHEN 325 MG TAB PO PRN ×2 (14:45)
[2017-09-11] MEDS ORDERED: ONDANSETRON ODT 4 MG TAB PO PRN (14:45)
[2017-09-11] MEDS ORDERED: METOCLOPRAMIDE HCL 10 MG/2 ML VIAL IV PUSH PRN (14:45)
[2017-09-11] MEDS ORDERED: SODIUM CHLORIDE 0.9% FLUSH 10 ML FLUSH IV FLUSH PRN (14:45)
[2017-09-11] MEDS ORDERED: oxyCODONE/ACETAMINOPHEN 5 MG/325 MG TAB PO PRN (14:45)
[2017-09-11] MEDS ORDERED: LACTULOSE SYRUP 20 GM/30 ML CUP PO PRN (14:45)
[2017-09-11 16:00] VITALS: BP 151/94; PULSE 77; RESP 18; TEMP 97.6; O2SAT 97
[2017-09-11] MEDS: ENOXAPARIN SODIUM 40 MG/0.4 ML SYRINGE SQ SCH (16:44)
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
[2017-09-11 20:00] VITALS: BP 146/96; PULSE 68; PULSE 76; RESP 18; TEMP 97.8; O2SAT 95
[2017-09-11] MEDS: ceFAZolin 2 GM PREMIX 50 ML IV SCH (20:19)
[2017-09-12] VITALS (7 sets, daily range): BP systolic 109–150; BP diastolic 75–94; PULSE 54–72; RESP 16–22; TEMP 97.1–97.7; O2SAT 95–98
[2017-09-12] MEDS: oxyCODONE/ACETAMINOPHEN 10 MG/325 MG TAB PO PRN ×3 (01:09→15:03)
[2017-09-12] MEDS: ceFAZolin 2 GM PREMIX 50 ML IV SCH ×3 (03:50→20:23)
[2017-09-12 05:42] LABS: AUTOMATED NEUTROPHIL # 3.9 TH/MM3 (1.8-7.7); BASOPHIL % 0.4 % (0.0-2.0); EOSINOPHIL # 0.2 TH/MM3 (0-0.4); EOSINOPHIL % 2.5 % (0.0-4.0); HEMATOCRIT 44.3 % (39.0-51.0); HEMOGLOBIN 15.5 GM/DL (13.0-17.0); LYMPH % 24.3 % (9.0-44.0); LYMPHOCYTE # 1.5 TH/MM3 (1.0-4.8); MEAN CORPUSCULAR HEMOGLOBIN 30.9 PG (27.0-34.0); MEAN CORPUSCULAR HGB CONC 35.1 % (32.0-36.0); MEAN PLATELET VOLUME 8.2 FL (7.0-11.0); MONO % 9.2 % (0.0-8.0); MONOCYTE # 0.6 TH/MM3 (0-0.9); NEUT % 63.6 % (16.0-70.0); PLATELET COUNT 149 TH/MM3 (150-450); RED BLOOD COUNT 5.03 MIL/MM3 (4.50-5.90); WHITE BLOOD COUNT 6.2 TH/MM3 (4.0-11.0)
[2017-09-12 05:52] LABS: AST (GOT) 44 U/L (15-37); BICARBONATE 23.6 MEQ/L (21.0-32.0); BLOOD UREA NITROGEN 7 MG/DL (7-18); CALCIUM 8.6 MG/DL (8.5-10.1); CHLORIDE 101 MEQ/L (98-107); CREATININE 0.87 MG/DL (0.60-1.30); GLOMERULAR FILTRATION RATE 91 ML/MIN (>89); GLUCOSE,RANDOM 88 MG/DL (74-106); MAGNESIUM 1.9 MG/DL (1.5-2.5); SODIUM (NA) 136 MEQ/L (136-145)
[2017-09-12 06:02] LABS: ALKALINE PHOSPHATASE 62 U/L (45-117); ALT (GPT) 55 U/L (12-78); FREE T4 1.64 NG/DL (0.76-1.46); PHOSPHORUS 3.2 MG/DL (2.5-4.9); TOTAL PROTEIN 7.4 GM/DL (6.4-8.2)
[2017-09-12] MEDS ORDERED: PHARMACY ORDERED LAB ONE (08:45)
[2017-09-12] MEDS: DOCUSATE SODIUM 50 MG/SENNA 8.6 MG TAB PO SCH ×3 (09:00→20:23)
[2017-09-12] MEDS: SODIUM CHLORIDE 0.9% FLUSH 10 ML FLUSH IV FLUSH SCH ×2 (09:00→20:23)
[2017-09-12] MEDS: HYDROCHLOROTHIAZIDE 25 MG TAB PO SCH (09:01)
[2017-09-12] MEDS: PANTOPRAZOLE SOD 20 MG DELAYED RELEASE TAB PO SCH (09:01)
[2017-09-12] MEDS: GABAPENTIN 300 MG CAP PO SCH ×3 (09:02→18:10)
[2017-09-12] MEDS: LISINOPRIL 20 MG TAB PO SCH (09:02)
[2017-09-12] MEDS: VENLAFAXINE HCL XR 75 MG CAP PO SCH (09:02)
[2017-09-12] MEDS: SODIUM CHLOR 0.9% 1000 ML INJ 1,000 ML IV SCH ×2 (09:04→15:04)
[2017-09-12 13:23] LABS: HEMOGLOBIN A1C 4.6 % (4.3-6.0)
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
[2017-09-12] MEDS ORDERED: MORPHINE SULFATE 4 MG/ML INJ IV PUSH PRN (14:30)
[2017-09-12] MEDS ORDERED: MORPHINE SULFATE 4 MG/ML INJ IV PRN (14:30)
[2017-09-12] MEDS: POTASSIUM CHLORIDE 20 MEQ CONTROLLED RELEASE TAB PO SCH ×2 (15:03→18:09)
[2017-09-12] MEDS: ENOXAPARIN SODIUM 40 MG/0.4 ML SYRINGE SQ SCH (15:04)
[2017-09-13] VITALS: BP 130/70; PULSE 64; RESP 20; TEMP 97.4; O2SAT 97
[2017-09-13] MEDS: ceFAZolin 2 GM PREMIX 50 ML IV SCH ×3 (02:27→20:08)
[2017-09-13] MEDS: SODIUM CHLOR 0.9% 1000 ML INJ 1,000 ML IV SCH ×3 (02:29→23:23)
[2017-09-13 04:00] VITALS: BP 158/82; PULSE 63; RESP 20; TEMP 97.6; O2SAT 96
[2017-09-13 06:12] LABS: AUTOMATED NEUTROPHIL # 2.5 TH/MM3 (1.8-7.7); BASOPHIL % 0.5 % (0.0-2.0); EOSINOPHIL # 0.2 TH/MM3 (0-0.4); EOSINOPHIL % 3.3 % (0.0-4.0); HEMATOCRIT 42.8 % (39.0-51.0); HEMOGLOBIN 15.2 GM/DL (13.0-17.0); LYMPH % 39.2 % (9.0-44.0); LYMPHOCYTE # 2.1 TH/MM3 (1.0-4.8); MEAN CORPUSCULAR HEMOGLOBIN 31.2 PG (27.0-34.0); MEAN CORPUSCULAR HGB CONC 35.4 % (32.0-36.0); MEAN PLATELET VOLUME 7.8 FL (7.0-11.0); MONO % 8.6 % (0.0-8.0); MONOCYTE # 0.5 TH/MM3 (0-0.9); NEUT % 48.4 % (16.0-70.0); PLATELET COUNT 163 TH/MM3 (150-450); RED BLOOD COUNT 4.87 MIL/MM3 (4.50-5.90); WHITE BLOOD COUNT 5.3 TH/MM3 (4.0-11.0)
[2017-09-13 06:36] LABS: AST (GOT) 53 U/L (15-37); BICARBONATE 24.7 MEQ/L (21.0-32.0); BLOOD UREA NITROGEN 9 MG/DL (7-18); CALCIUM 8.7 MG/DL (8.5-10.1); CHLORIDE 102 MEQ/L (98-107); CREATININE 0.91 MG/DL (0.60-1.30); GLOMERULAR FILTRATION RATE 86 ML/MIN (>89); GLUCOSE,RANDOM 86 MG/DL (74-106); MAGNESIUM 1.8 MG/DL (1.5-2.5); SODIUM (NA) 136 MEQ/L (136-145)
[2017-09-13 06:40] LABS: ALKALINE PHOSPHATASE 67 U/L (45-117); ALT (GPT) 56 U/L (12-78); TOTAL BILIRUBIN ADULT 0.7 MG/DL (0.2-1.0); TOTAL PROTEIN 7.3 GM/DL (6.4-8.2)
[2017-09-13 08:00] VITALS: PULSE 67; PULSE 69
[2017-09-13] MEDS: VENLAFAXINE HCL XR 75 MG CAP PO SCH (08:04)
[2017-09-13] MEDS: PANTOPRAZOLE SOD 20 MG DELAYED RELEASE TAB PO SCH (08:05)
[2017-09-13] MEDS: HYDROCHLOROTHIAZIDE 25 MG TAB PO SCH (08:05)
[2017-09-13] MEDS: GABAPENTIN 300 MG CAP PO SCH ×3 (08:05→16:37)
[2017-09-13] MEDS: POTASSIUM CHLORIDE 20 MEQ CONTROLLED RELEASE TAB PO SCH (08:06)
[2017-09-13] MEDS: LISINOPRIL 20 MG TAB PO SCH (08:06)
[2017-09-13] MEDS: oxyCODONE/ACETAMINOPHEN 10 MG/325 MG TAB PO PRN ×3 (08:08→23:23)
[2017-09-13] MEDS: DOCUSATE SODIUM 50 MG/SENNA 8.6 MG TAB PO SCH ×2 (08:11→20:06)
[2017-09-13] MEDS: SODIUM CHLORIDE 0.9% FLUSH 10 ML FLUSH IV FLUSH SCH ×2 (08:11→20:06)
[2017-09-13] MEDS ORDERED: GADODIAMIDE PF 287 MG/ML 20 ML VIAL (for RAD MRI) IVCONTRAST ONE (09:26)
--- NOTE | 2017-09-13 10:03 | RADRPT ---
EXAM DATE: 09/13/2017 9:55 AM EDT AGE/SEX: 57 years / Male INDICATIONS: . Left elbow cellulitis with drainage. CLINICAL DATA: This is the patient's initial encounter. Patient reports that signs and symptoms have been present for 3 days and indicates a pain score of 4/10. MEDICAL/SURGICAL HISTORY: Hypertension. Renal insufficiency, chronic. . Right femur replacemen t. Right below knee amputation. COMPARISON: No prior exams available for comparison. TECHNIQUE: Multiplanar, multisequence MRI examination was performed without contrast and after the i ntravenous administration of 20 ml Omniscan (gadodiamide) contrast as a single exam dose. FINDINGS: Bones: The osseous structures are in normal alignment. No evidence of fracture or bony edema. Joint Spaces: No loose bodies are seen. The articular cartilage is intact. There is a small elbow iglesia nt effusion identified. Tendons: The biceps, brachialis, and triceps tendons are intact. The common extensor and flexor tendo n origins are unremarkable. Ligaments: The radial and ulnar collateral ligaments are intact. Soft Tissues: There is significant edema of the subcutaneous tissues posterior to the upper arm and elbow with overlying skin thickening. There is a small fluid collection posterior to the olecranon me asuring 2 cm in cephalocaudal dimension. Other: The neurovascular structures are intact. Post Contrast: There are no abnormal areas of enhancement in the marrow, muscle or soft tissues on i mages obtained after intravenous administration of gadolinium. CONCLUSION: 1. Significant subcutaneous edema greatest posterior to the elbow with more focal fluid posterior to the olecranon with surrounding edema and enhancement. Overlying skin thickening characteristic of ce llulitis and possible developing abscess formation or infected bursal fluid collection. 2. No evidence for osteomyelitis. Electronically signed by: Meng Morrow MD 09/13/2017 10:01 AM EDT
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
[2017-09-13 13:20] VITALS: BP 120/91; PULSE 80; RESP 17; TEMP 98; O2SAT 96
[2017-09-13 16:00] VITALS: BP 110/76; PULSE 77; RESP 16; TEMP 97.3; O2SAT 97
[2017-09-13] MEDS: ENOXAPARIN SODIUM 40 MG/0.4 ML SYRINGE SQ SCH (16:38)
[2017-09-13 20:00] VITALS: BP 106/68; PULSE 76; RESP 18; TEMP 97.7; O2SAT 98
[2017-09-14] VITALS: BP 114/71; PULSE 64; RESP 18; TEMP 97.4; O2SAT 94
[2017-09-14] MEDS: ceFAZolin 2 GM PREMIX 50 ML IV SCH ×3 (04:34→20:51)
[2017-09-14] MEDS: DOCUSATE SODIUM 50 MG/SENNA 8.6 MG TAB PO SCH ×2 (07:28→20:52)
[2017-09-14] MEDS: SODIUM CHLORIDE 0.9% FLUSH 10 ML FLUSH IV FLUSH SCH ×2 (07:31→20:52)
[2017-09-14] MEDS: GABAPENTIN 300 MG CAP PO SCH ×3 (07:31→15:47)
[2017-09-14] MEDS: SODIUM CHLOR 0.9% 1000 ML INJ 1,000 ML IV SCH (07:31)
[2017-09-14] MEDS: POTASSIUM CHLORIDE 20 MEQ CONTROLLED RELEASE TAB PO SCH (07:32)
[2017-09-14] MEDS: LISINOPRIL 20 MG TAB PO SCH (07:32)
[2017-09-14] MEDS: HYDROCHLOROTHIAZIDE 25 MG TAB PO SCH (07:32)
[2017-09-14] MEDS: PANTOPRAZOLE SOD 20 MG DELAYED RELEASE TAB PO SCH (07:33)
[2017-09-14] MEDS: VENLAFAXINE HCL XR 75 MG CAP PO SCH (07:33)
[2017-09-14 08:00] VITALS: BP 137/83; PULSE 58; RESP 18; TEMP 97.4; O2SAT 99
[2017-09-14 12:00] VITALS: BP 117/81; PULSE 91; RESP 18; TEMP 97.5; O2SAT 97
--- NOTE | 2017-09-14 14:42 | HHI.PR ---
Subjective Remarks Patient reports he is feeling much better. Left elbow is less swollen. He reports his range of motion have significantly improved. No fevers or chills. Objective Vitals Vital Signs Date Time Temp Pulse Resp B/P (MAP) Pulse Ox O2 Delivery O2 Flow Rate FiO2 09/14/17 12:00 97.5 91 18 117/81 (93) 97 09/14/17 08:00 97.4 58 18 137/83 (101) 99 09/14/17 00:23 18 09/14/17 00:00 97.4 64 18 114/71 (85) 94 09/13/17 20:00 97.7 76 18 106/68 (81) 98 09/13/17 16:00 97.3 77 16 110/76 (87) 97 I/O 09/13/17 09/13/17 09/13/17 09/14/17 09/14/17 09/14/17 06:59 14:59 22:59 06:59 14:59 22:59 Intake Total 360 ml 1000 ml 450 ml 240 ml Output Total 775 ml 500 ml 200 ml 1050 ml Balance -415 ml 1000 ml -50 ml 40 ml -1050 ml Intake Oral 360 ml 400 ml 240 ml IV Total 1000 ml 50 ml Output Urine Total 775 ml 500 ml 200 ml 1050 ml # Bowel Movements 0 0 0 Result Diagram: 09/13/1753709/[id number]/17537 Objective Remarks GENERAL: This is a well-nourished, well-developed patient, in no apparent distress. CARDIOVASCULAR: Normal rate and regular rhythm without murmurs, gallops, or rubs. RESPIRATORY: Good respiratory efforts. Breath sounds equal and clear to auscultation bilaterally. GASTROINTESTINAL: Abdomen soft, non-tender, non-distended. Normal active bowel sounds MUSCULOSKELETAL: Left elbow examined with nurse. The wound appear clean and healthy. Normal range of motion. Neurovascularly intact. NEURO: Alert & Oriented x4 to person, place, time, situation. Moves all ext x4 PSYCH: Appropriate mood and affect. Procedures NONE A/P Problem List: (1) Cellulitis of left elbow ICD Code: L03.114 - Cellulitis of left upper limb Status: Acute Plan: MRI negative for osteomyelitis. Significant improvement in swelling and overall wound appearance. Wound culture growing MSSA and group A strep. Infectious disease following. Patient is currently on Ancef. Awaiting further recommendations from ID. Will probably do okay with oral antibiotics outpatient. (2) Infection of left hand ICD Code: L08.9 - Local infection of the skin and subcutaneous tissue, unspecified Status: Acute (3) Uncontrolled hypertension ICD Code: I10 - Essential (primary) hypertension Plan: Much better controlled on current dose of lisinopril, amlodipine, and HCTZ (4) Neuropathy ICD Code: G62.9 - Polyneuropathy, unspecified (5) Depression ICD Code: F32.9 - Major depressive disorder, single episode, unspecified Plan: Continue home medications Discharge Planning Awaiting callback from infectious disease for further recommendations Mike Catherine MD Sep 14, 2017 14:42
[2017-09-14] MEDS: ENOXAPARIN SODIUM 40 MG/0.4 ML SYRINGE SQ SCH (15:49)
[2017-09-14 16:00] VITALS: BP 129/63; PULSE 71; RESP 19; TEMP 97.5; O2SAT 96
[2017-09-14 20:00] VITALS: BP 130/80; PULSE 67; RESP 17; TEMP 98; O2SAT 93
[2017-09-15] VITALS: BP 127/76; PULSE 62; RESP 17; TEMP 97.4; O2SAT 94
[2017-09-15] MEDS: ceFAZolin 2 GM PREMIX 50 ML IV SCH ×2 (04:04→11:58)
--- NOTE | 2017-09-15 07:45 | MB ---
cc: Juan C Bhatt MD DATE: 09/15/2017 REASON FOR CONSULTATION: Left olecranon bursitis. CONSULTING PHYSICIAN: Dr. Fredi Cuello HISTORY OF PRESENT ILLNESS: Ambrocio is a 57-year-old male who presented in the emergency room with evidence of infection of his left elbow. He fell out of his wheelchair approximately a week ago and scraped his left elbow on the ground. He had an abrasion. He noticed increasing swelling and erythema. He has a history of previous MRA infections. He states that 2 days ago, he started draining significant purulent drainage from the elbow. He states that with antibiotics, the redness and swelling have improved significantly. Currently he has minimal pain around the elbow. He denies fevers or chills. Currently, his only complaint is his left elbow. PAST MEDICAL HISTORY: Illnesses, neuropathy, reflux, hypertension and depression. PAST SURGICAL HISTORY: Right below-knee amputation and treatment of a stomach ulcer. MEDICATIONS: Include: 1. Effexor. 2. Trazodone. 3. Protonix. 4. Hydrochlorothiazide. 5. Norvasc. 6. Lisinopril. 7. Gabapentin. ALLERGIES: NO KNOWN DRUG ALLERGIES. MEDICATIONS: Please see EMR for a complete list of inpatient medications. This was reviewed. FAMILY HISTORY: The patient states that he has a family history of coronary artery disease. SOCIAL HISTORY: The patient smokes 1-2 cigars a day. He is homeless. He denies alcohol or drug use. REVIEW OF SYSTEMS: The patient denies headache, visual changes, neck pain, chest pain, shortness of breath, abdominal pain, nausea, vomiting, recent weight loss, fever, chills, numbness or tingling of extremities. He complains of left elbow pain and swelling. This has improved. LABORATORY DATA: The patient has a white blood cell count of 5.3, hematocrit 42, platelet count of 163. BUN 9, potassium of 3.9. MRI: MRI of the left elbow was reviewed. The patient has some edema and a small amount of fluid around the olecranon bursa. No fractures are noted. There is no joint effusion. PHYSICAL EXAMINATION: GENERAL: The patient is a 57-year-old male. He is awake and alert. He is in no acute distress. He appears well-developed and well-nourished. VITAL SIGNS: Temperature 97.4, pulse 62, respirations 18, blood pressure 127/76, O2 saturation 94% on room air. HEAD: The patient is normocephalic. EYES: Pupils are equal. NECK: Soft, nontender. The trachea is in the midline. ABDOMEN: Soft, nontender, nondistended. EXTREMITIES: Examination of the left arm reveals no tenderness around his shoulder, wrist or fingers. He has no pain with elbow range of motion. Elbow range of motion is from 0 to 135 degrees. He has a 2 x 2 cm abrasion. There is a small amount of drainage present. There is mild swelling around the olecranon. There is no palpable fluctuance. He has no tenderness to palpation directly over the olecranon process. There is minimal erythema present. Forearm compartments are soft. Sensation is intact in all fingers. Examination of the right arm reveals no pain with shoulder, elbow and wrist motion. Skin is intact. Radial pulse is palpable. Examination of the left leg reveals no pain with hip, knee or ankle motion. Skin is intact. Dorsalis pedis pulses palpable. Examination of the right leg reveals minimal pain with hip or knee motion. He has a below-knee amputation present. IMPRESSION: 1. Hypertension. 2. Depression. 3. Neuropathy. 4. Reflux. 5. Left elbow infected bursitis. PLAN: The treatments were discussed with the patient. At this point, I would recommend continued antibiotic treatment. I cannot palpate any fluctuance around the elbow. There is an open wound, which appears to be draining. He has had significant clinical improvement with antibiotics. If the patient begins to have increased swelling, erythema and fluid collection, he may need surgical intervention. The patient is in agreement with this plan. All questions were answered. A mid-level provider in my office, nurse practitioner or PA, may see this patient on a follow-up basis and continue to implement the objective of this plan including: Starting or adjusting medications, injections of muscle, tendon, bursa or joints, cast application, orthotic or brace application, physical therapy, further radiographic studies including x-ray, MRI, CT, ultrasounds or bone scan, vascular studies, neurologic studies, or other specialist consultations, and proceeding with surgical management as appropriate. MD ANGLE Luevano/VALENTIN , 07:23 AM , 07:44 AM
[2017-09-15] MEDS: DOCUSATE SODIUM 50 MG/SENNA 8.6 MG TAB PO SCH (07:52)
[2017-09-15] MEDS: LISINOPRIL 20 MG TAB PO SCH (07:52)
[2017-09-15] MEDS: GABAPENTIN 300 MG CAP PO SCH ×2 (07:52→11:57)
[2017-09-15] MEDS: VENLAFAXINE HCL XR 75 MG CAP PO SCH (07:52)
[2017-09-15] MEDS: PANTOPRAZOLE SOD 20 MG DELAYED RELEASE TAB PO SCH (07:53)
[2017-09-15] MEDS: HYDROCHLOROTHIAZIDE 25 MG TAB PO SCH (07:53)
[2017-09-15] MEDS: POTASSIUM CHLORIDE 20 MEQ CONTROLLED RELEASE TAB PO SCH (07:53)
[2017-09-15] MEDS: SODIUM CHLORIDE 0.9% FLUSH 10 ML FLUSH IV FLUSH SCH (07:56)
[2017-09-15 08:00] VITALS: BP 143/87; PULSE 67; RESP 18; TEMP 97.8; O2SAT 98
[2017-09-15 12:00] VITALS: BP 120/81; PULSE 88; RESP 18; TEMP 97.3; O2SAT 98
--- NOTE | 2017-09-15 12:01 | HHI.IDPN ---
Subjective Subjective Remarks pt is doing better improved MRI showe d small abscess Antibiotics cefazolin Allergies: Coded Allergies: No Known Allergies (Unverified , 09/10/17) Objective . Vital Signs Date Time Temp Pulse Resp B/P (MAP) Pulse Ox O2 Delivery O2 Flow Rate FiO2 09/15/17 08:00 97.8 67 18 143/87 (105) 98 09/15/17 00:00 97.4 62 17 127/76 (93) 94 09/14/17 20:00 98.0 67 17 130/80 (97) 93 09/14/17 16:00 97.5 71 19 129/63 (85) 96 09/14/17 12:00 97.5 91 18 117/81 (93) 97 Imaging Last Impressions Elbow MRI 09/13/17 0000 Signed Impressions: CONCLUSION: 1. Significant subcutaneous edema greatest posterior to the elbow with more fo zuleyka fluid posterior to the olecranon with surrounding edema and enhancement. Ov erlying skin thickening characteristic of cellulitis and possible developing ab scess formation or infected bursal fluid collection. 2. No evidence for osteomyelitis. Physical Exam CONSTITUTIONAL/GENERAL: This is an adequately nourished patient, in no apparent distress. TUBES/LINES/DRAINS: SKIN: No jaundice, rashes, or lesions.Skin temperature appropriate. Not diaphoretic. CARDIOVASCULAR: Regular rate and rhythm without murmurs, gallops, or rubs. No JVD. Peripheral pulses symmetric. RESPIRATORY/CHEST: Symmetric, unlabored respirations. Clear to auscultation. Breath sounds equal bilaterally. No wheezes, rales, or rhonchi. GASTROINTESTINAL: Abdomen soft, non-tender, nondistended. No hepato-splenomegaly , or palpable masses. No guarding. Bowel sounds present. MUSCULOSKELETAL: Extremities without clubbing, cyanosis, or edema. No joint tenderness or effusion noted. No calf tenderness. No mottling or clubbing. well healed BKA on RLE L elbow is less swollen and less red minimal serosang drainage NEUROLOGICAL: Awake and alert. Motor and sensory grossly within normal limits. Follows commands. Clear speech. Moves all extremities. PSYCHIATRIC: No obvious anxiety/depression. no apparent hallucinations or other psychotic thought process. Assessment & Plan Remarks L elbow abrasion ? bursitis MSSA, GAS Cellulitis, lymphangitis LISBETHE will switch Keflex x3 weeks OK to dc fu with ortho Jelena,Nhung A. MD Sep 15, 2017 12:01
[2017-09-15] MEDS ORDERED: CEPH500C PO (12:36)
--- NOTE | 2017-09-15 12:37 | HHI.DCPOC ---
Discharge Care Plan Diagnosis: (1) Cellulitis of hand (2) Cellulitis of left elbow (3) Infection of left hand (4) Uncontrolled hypertension (5) Neuropathy (6) Depression Goals to Promote Your Health * To prevent worsening of your condition and complications * To maintain your health at the optimal level Directions to Meet Your Goals Take your medications as prescribed Follow your dietary instruction Follow activity as directed Keep your appointments as scheduled Take your immunizations and boosters as scheduled If your symptoms worsen call your PCP, if no PCP go to Urgent Care Center or Emergency Room Smoking is Dangerous to Your Health. Avoid second hand smoke Call the 24-hour hour crisis hotline for domestic abuse at Mike Catherine MD Sep 15, 2017 12:37
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
[2017-09-15] MEDS ORDERED: CEPHALEXIN MONOHYDRATE 500 MG CAP PO SCH (18:00)
== END 2017-09-15 15:36 | disposition home or self-care (01) | DRG 558 ==
LOC: NEPC 07:02 → NEDA 13:06 → OBSVTOIN 15:00 → N07A 15:42
PROVIDERS: ADMIT Family Medicine; ATTEND Family Medicine
DX: M71.122 Other infective bursitis, left elbow (principal); G62.9 Polyneuropathy, unspecified; I10 Essential (primary) hypertension; L03.114 Cellulitis of left upper limb; B95.61 Methicillin susceptible Staphylococcus aureus infection as the cause of diseases classified elsewhere; B95.0 Streptococcus, group A, as the cause of diseases classified elsewhere; E87.6 Hypokalemia; F32.9 Major depressive disorder, single episode, unspecified; K21.9 Gastro-esophageal reflux disease without esophagitis; Z59.0 Homelessness; W05.0XXA Fall from non-moving wheelchair, initial encounter; Z99.3 Dependence on wheelchair; Z89.511 Acquired absence of right leg below knee; F17.290 Nicotine dependence, other tobacco product, uncomplicated; Z86.14 Personal history of Methicillin resistant Staphylococcus aureus infection
CPT/HCPCS: 73223; 80048; 80053; 83036; 83735; 84100; 84439; 84443; 85025; 86403; 87070; 87147; 87186; 87205; 94667; 96365; A9579; J0690; J1650; J2543; J3370; J7030; J7040; J7050